=== PATIENT | male | born 1950 | race Caucasian/White ===

== ENCOUNTER 2021-05-09 10:18 | Outpatient (REF) | payer MEDICARE, SELFPAY ==
[2021-05-09 11:34] LABS: Appearance Urine CLEAR; Color Urine YELLOW; Glucose Urine UA NEG (NEG); Leukocyte Esterase Urine NEG (NEG); Nitrite Urine NEG (NEG); PH 5.5 (5.0-8.0); Specific Gravity - Urine 1.025 (1.005-1.025); Urine Blood NEG (NEG); Urine Ketones NEG (NEG); Urine Protein NEG (NEG-TRACE)
[2021-05-09 11:50] LABS: Estimated Average Glucose 117 mg/dL; Hemoglobin A1c % 5.7 %
[2021-05-09 12:01] LABS: Creatinine Urine 158.96 mg/dL; Microalbum/Creatinine Ratio Ur 18.2 ug/mg cr
[2021-05-09 12:15] LABS: Alanine Aminotransferase 12 U/L (0-40); Albumin Level 4.2 g/dL (3.5-5.0); Alkaline Phosphatase 65 U/L (39-117); Anion Gap 11 (12-20); Aspartate Amino Transferase 13 U/L (5-37); Bilirubin Total 0.5 mg/dL (0.0-1.0); Blood Urea Nitrogen 20 mg/dL (9-16); Calcium 9.4 mg/dL (8.4-10.2); Carbon Dioxide 29 mmol/L (22-29); Chloride 107 mmol/L (96-108); Cholesterol 158 mg/dL; Estimated Glomerular Filt Rate > 60; Glucose Fasting 107 mg/dL (60-99); HDL Cholesterol 37 mg/dL; LDL Cholesterol Calculated 102 mg/dl; Potassium 4.8 mmol/L (3.3-5.1); Sodium 142 mmol/L (135-145); Total Protein 6.9 g/dL (6.5-8.0); Triglycerides 98 mg/dL
[2021-05-09 12:38] LABS: Prostate Specific Antigen Scr 0.65 ng/mL (<0.05-4.0); TSH reflex Free T4 1.28 uIU/mL (0.32-4.0)
== END 2021-05-09 10:19 | disposition home or self-care (01) ==
LOC: HO.HMGCLDS 10:18
PROVIDERS: PCP Nurse Practitioner Family; Visit Provider Nurse Practitioner Family
DX: Z12.5 Encounter for screening for malignant neoplasm of prostate (principal); E11.9 Type 2 diabetes mellitus without complications
CPT/HCPCS: 36415; 80053; 80061; 81003; 82043; 83036; 84153; 84443

== ENCOUNTER 2021-08-22 09:23 | Outpatient (REF) | payer MEDICARE, SELFPAY ==
[2021-08-22 12:09] LABS: Alanine Aminotransferase 12 U/L (0-40); Albumin Level 4.2 g/dL (3.5-5.0); Alkaline Phosphatase 67 U/L (39-117); Anion Gap 15 (12-20); Aspartate Amino Transferase 13 U/L (5-37); Bilirubin Total 0.8 mg/dL (0.0-1.0); Blood Urea Nitrogen 16 mg/dL (9-16); Calcium 9.9 mg/dL (8.4-10.2); Carbon Dioxide 26 mmol/L (22-29); Chloride 104 mmol/L (96-108); Estimated Glomerular Filt Rate > 60; Glucose Random 117 mg/dL (60-115); Potassium 4.5 mmol/L (3.3-5.1); Sodium 140 mmol/L (135-145); Total Protein 7.1 g/dL (6.5-8.0)
== END 2021-08-22 09:24 | disposition home or self-care (01) ==
LOC: HO.HMGCLDS 09:23
PROVIDERS: PCP Nurse Practitioner Family; Visit Provider Nurse Practitioner Family
DX: I10 Essential (primary) hypertension (principal)
CPT/HCPCS: 36415; 80053

== ENCOUNTER 2022-01-18 10:17 | Outpatient (REF) | payer MEDICARE, SELFPAY ==
[2022-01-18 15:02] LABS: MANUAL DIFF FLAG NO
[2022-01-18 15:03] LABS: Appearance Urine Turbid; Color Urine Yellow; Glucose Urine UA Negative (Negative); Leukocyte Esterase Urine Trace (Negative); Nitrite Urine Negative (Negative); PH 5.5 (5.0-9.0); Specific Gravity - Urine 1.025 (1.005-1.025); UMIC TRIGGER UACC YES; Urine Blood Negative (Negative); Urine Ketones Negative (Negative); Urine Protein Negative (Neg-Trace)
[2022-01-18 15:08] LABS: Basophils Absolute Auto 0.1 X10*3/uL (0.0-0.2); Basophils Percent Auto 1.4 % (0-2); Eosinophils Absolute Auto 0.1 X10*3/uL (0.0-0.4); Eosinophils Percent Auto 2.4 % (0-4); Hematocrit 44.9 % (42.0-52.0); Hemoglobin 14.7 g/dl (14.0-18.0); Imm Gran Abs Auto 0.02 X10*3/uL (0.00-0.03); Imm Gran Pct Auto 0.4 % (0.0-0.4); Lymphocytes Percent Auto 19.5 % (20-40); Mean Corpuscular HGB Conc 32.7 g/dl (31.0-36.0); Mean Corpuscular Hemoglobin 28.7 pg (27.0-33.0); Mean Corpuscular Volume 87.5 fL (80.0-98.0); Mean Platelet Volume 11.8 fL (9.4-12.4); Monocytes Absolute Auto 0.5 X10*3/uL (0.1-1.2); Monocytes Percent Auto 9.8 % (2-11); Neutrophils Absolute Auto 3.3 x10*3/uL (2.0-8.3); Neutrophils Percent Auto 66.5 % (45-73); Platelet Count 187 X10*3/uL (160-400); Red Blood Count 5.13 X10*6/uL (4.60-5.80)
[2022-01-18 15:09] LABS: Bacteria Urine None Seen (None Seen); Hyaline Casts Urine 0-2 /LPF (0-2); RBC Urine 0-2 /HPF (0-2); Squamous Epithelial Cell Urine 0-2 /HPF (0-2); WBC Urine 0-5 /HPF (0-5)
[2022-01-18 15:19] LABS: Alanine Aminotransferase 15 U/L (0-40); Albumin Level 4.5 g/dL (3.5-5.0); Alkaline Phosphatase 64 U/L (39-117); Anion Gap 15 (12-20); Aspartate Amino Transferase 18 U/L (5-37); Bilirubin Total 0.4 mg/dL (0.0-1.0); Blood Urea Nitrogen 20 mg/dL (9-16); Calcium 9.4 mg/dL (8.4-10.2); Carbon Dioxide 26 mmol/L (22-29); Chloride 103 mmol/L (96-108); Cholesterol 187 mg/dL; Estimated Glomerular Filt Rate > 60; Glucose Fasting 117 mg/dL (60-99); HDL Cholesterol 45 mg/dL; LDL Cholesterol Calculated 112 mg/dl; Potassium 4.4 mmol/L (3.3-5.1); Sodium 140 mmol/L (135-145); Total Protein 7.2 g/dL (6.5-8.0); Triglycerides 151 mg/dL
[2022-01-18 15:20] LABS: Estimated Average Glucose 120 mg/dL; Hemoglobin A1C 150.8306 umol/L; Hemoglobin A1c % 5.8 %
== END 2022-01-18 10:18 | disposition home or self-care (01) ==
LOC: HO.HMGCLDS 10:17
PROVIDERS: PCP Nurse Practitioner Family; Visit Provider Nurse Practitioner Family
DX: I10 Essential (primary) hypertension (principal); E11.9 Type 2 diabetes mellitus without complications
CPT/HCPCS: 36415; 80053; 80061; 81001; 81003; 83036; 84443; 85025

== ENCOUNTER 2022-07-26 11:05 | Outpatient (REF) | payer MEDICARE, SELFPAY ==
[2022-07-26 14:07] LABS: MANUAL DIFF FLAG NO
[2022-07-26 14:14] LABS: Appearance Urine Cloudy; Color Urine Yellow; Glucose Urine UA Negative (Negative); Leukocyte Esterase Urine Negative (Negative); Nitrite Urine Negative (Negative); PH 5.5 (5.0-9.0); Specific Gravity - Urine >= 1.030 (1.005-1.025); Urine Blood Negative (Negative); Urine Ketones Negative (Negative); Urine Protein Negative (Neg-Trace)
[2022-07-26 14:18] LABS: Basophils Absolute Auto 0.1 X10*3/uL (0.0-0.2); Basophils Percent Auto 1.5 % (0-2); Eosinophils Absolute Auto 0.1 X10*3/uL (0.0-0.4); Hematocrit 43.5 % (42.0-52.0); Hemoglobin 14.4 g/dl (14.0-18.0); Imm Gran Abs Auto 0.02 X10*3/uL (0.00-0.03); Imm Gran Pct Auto 0.4 % (0.0-0.4); Lymphocytes Percent Auto 20.7 % (20-40); Mean Corpuscular HGB Conc 33.1 g/dl (31.0-36.0); Mean Corpuscular Hemoglobin 29.4 pg (27.0-33.0); Mean Corpuscular Volume 88.8 fL (80.0-98.0); Mean Platelet Volume 11.9 fL (9.4-12.4); Monocytes Absolute Auto 0.4 X10*3/uL (0.1-1.2); Monocytes Percent Auto 9.2 % (2-11); Neutrophils Absolute Auto 3.1 x10*3/uL (2.0-8.3); Neutrophils Percent Auto 65.2 % (45-73); Platelet Count 198 X10*3/uL (160-400); Red Cell Distribution Width 11.9 % (11.0-16.0); White Blood Count 4.7 X10*3/uL (4.8-10.8)
[2022-07-26 14:43] LABS: Alanine Aminotransferase 13 U/L (0-40); Albumin Level 4.3 g/dL (3.5-5.0); Alkaline Phosphatase 67 U/L (39-117); Anion Gap 12 (12-20); Aspartate Amino Transferase 13 U/L (5-37); Bilirubin Total 0.5 mg/dL (0.0-1.0); Blood Urea Nitrogen 15 mg/dL (9-16); Calcium 9.3 mg/dL (8.4-10.2); Carbon Dioxide 28 mmol/L (22-29); Chloride 107 mmol/L (96-108); Cholesterol 178 mg/dL; Estimated Glomerular Filt Rate > 60; Glucose Fasting 119 mg/dL (60-99); HDL Cholesterol 36 mg/dL; LDL Cholesterol Calculated 114 mg/dl; Potassium 4.7 mmol/L (3.3-5.1); Sodium 142 mmol/L (135-145); Total Protein 6.7 g/dL (6.5-8.0); Triglycerides 142 mg/dL
[2022-07-26 14:49] LABS: Estimated Average Glucose 123 mg/dL; Hemoglobin A1c % 5.9 %
[2022-07-26 15:00] LABS: Prostate Specific Antigen Scr 1.09 ng/mL (<0.05-4.0); TSH reflex Free T4 1.22 uIU/mL (0.32-4.0)
[2022-07-26 15:15] LABS: Creatinine Urine 229.87 mg/dL; Microalbum/Creatinine Ratio Ur 10.8 ug/mg cr
== END 2022-07-26 11:06 | disposition home or self-care (01) ==
LOC: HO.HMGCLDS 11:05
PROVIDERS: PCP Nurse Practitioner Family; Visit Provider Nurse Practitioner Family
DX: Z12.5 Encounter for screening for malignant neoplasm of prostate (principal); I10 Essential (primary) hypertension; E11.9 Type 2 diabetes mellitus without complications
CPT/HCPCS: 36415; 80053; 80061; 81003; 82043; 83036; 84153; 84443; 85025

== ENCOUNTER 2022-11-13 09:18 | Outpatient (AMB) | payer MEDICARE, SELFPAY ==
[2022-11-13 09:28] VITALS: BP 150/84; PULSE 63; O2SAT 98; BMI 34.2
--- NOTE | 2022-11-13 09:28 | A.OFFPC_ITS ---
Vital Signs 11/13/22 09:28 Height 6 ft Weight 252 lb BMI 34.2 BP 150/84 H Blood Pressure Location Lt brachial Position Sitting Pulse 63 Pulse Source Pulse Oximeter Pulse Oximetry (%) 98 Oxygen Delivery Method Room Air Intake Visit Reasons: 4m follow up DM Allergies No Known Allergies Allergy (Verified 11/13/22 09:31) Medication List - Last Reconciled 11/13/22 by SHELDON Arce blood sugar diagnostic (OneTouch Ultra Test strips) tid testing lisinopril 40 mg PO DAILY 90 days metformin 500 mg PO BID 90 days terazosin 10 mg PO BEDTIME 90 days Tobacco use date assessed: 11/13/22 Fall risk assessment: No Falls in past year Last assessed Fall Risk: 11/13/22 Dental Screening Dental Screen Date: 11/13/22 Did you have a dental visit in the last 12 months?: No Did you have a dental problem in the last 6 months where you did not have access to dental care?: No Was dental information given to patient?: No HPI 4m follow up DM HPI Details Pt is a diabetic, on an ROHIT. A1c in office today is 5.8. Microalbumin is up to date. Denies polyuria, polydipsia, and neuropathy. Pt denies any signs and symptoms of hypoglycemia and does know how to correct it. Pt reports that his blood sugar typically ranges from 90s-low 100s. Due for colon screen, will refer to GI. HTN: WCS, reports BPs are better at home. [facility] Medical History Adjustment disorder with depressed mood BPH (benign prostatic hyperplasia) Diabetes HTN (hypertension) Kidney stones Obesity White coat syndrome with hypertension Social History Housing: Apartment Patient Tobacco Use Status: Never used Tobacco e-Cigarette/Vaping Use: Never Used Second Hand Smoke Exposure: No service: Yes Current occupational status: employed Current occupation: [employer] Current occupational exposures/hazards: No Cognitive needs: No Hearing needs: No Vision needs: No Questionnaire Thrive Questionnaire Date Thrive assessed: 04/26/21 KYLE-7 AMB Questionnaire KYLE-7 Date KYLE - 7 assessed: 04/26/21 Source: Developed by Drs. Ernie Garcia, Mindi Barton, Richard Brooks and colleagues, with an educational kvng from [email or web address]. Review of Systems Const Reports as per HPI Physical exam (Primary Care) Vital Signs: Last Vital Signs Pulse 63 11/13/22 09:28 BP 150/84 H 11/13/22 09:28 Pulse Ox 98 11/13/22 09:28 Oxygen Delivery Method Room Air 11/13/22 09:28 BMI result Body Mass Index 34.2 Tobacco/Smoking Status: Tobacco use Status Tobacco use date assessed 11/13/22 11/13/22 09:34 Patient Tobacco Use Status Never used Tobacco 11/13/22 09:34 e-Cigarette/Vaping Use Never Used 11/13/22 09:34 Thrive Assessment: Date of Thrive Assessment Date Thrive assessed 04/26/21 11/13/22 09:34 Const General: cooperative Nutritional Appearance: obese Orientation/consciousness: patient oriented x3 Resp Effort & Inspection: normal respiratory effort Auscultation: clear to auscultation bilaterally Cardio Rate: regular rate Rhythm: regular rhythm Heart sounds: S1 normal heart sound present and S2 normal heart sound present Neuro General: patient oriented x3 Extrem Other: bilat feet: + sensation with use of monofilament, feet intact Psych Appearance: grossly normal Mental Status: mental status grossly normal Speech and movement: Normal speech and movement present Affect: normal affect Attitude: cooperative Thought process: Normal thought process present Thought content: Normal thought content present Insight: Good insight present (Psych) Judgement: Good judgement present (Psych) Results AMB Hemoglobin A1c AMB Hemoglobin A1c 5.8 % Last Edit by Tonie Zamudio CMA on 11/13/22 10: 00 Results Reviewed Results Reviewed: Laboratory Last Values Hgb A1c (Clinic) 5.8 % (4.0-6.0) 11/13/22 09:40 Assessment and Plan Assessment & Plan (1) Screening for colon cancer: Code(s): Z12.11 - Encounter for screening for malignant neoplasm of colon Plan: Referred to GI (2) Diabetes: Code(s): E11.9 - Type 2 diabetes mellitus without complications (3) HTN (hypertension): Code(s): I10 - Essential (primary) hypertension Plan The patient agreed to the use of a medical artist for this encounter. Scribed for RASHID YanezP-BC by Sandhya Coleman, medical artist, on 11/13/2022 at 09:35 EST. Orders: Orders AMB Hemoglobin A1c Today E11.9 - Type 2 diabetes mellitus without complications Comprehensive [place]. Panel Fast Today E11.9 - Type 2 diabetes mellitus without complications Lipid Panel Today E11.9 - Type 2 diabetes mellitus without complications TSH reflex Free T4 Today E11.9 - Type 2 diabetes mellitus without complications Complete Blood Count Auto Diff Today E11.9 - Type 2 diabetes mellitus without complications UA CC w/rflx Micro + Cult Today E11.9 - Type 2 diabetes mellitus without complications Referrals Gastroenterology Referral Z12.11 - Encounter for screening for malignant neoplasm of colon Coding Level of Care Code Est Pt Level 3 (30771) Diagnoses Screening for colon cancer Z12.11 Diabetes E11.9 HTN (hypertension) I10
== END 2022-11-13 11:04 | disposition home or self-care (01) ==
PROVIDERS: PCP Nurse Practitioner Family; Visit Provider Nurse Practitioner Family
DX: Z12.11 Encounter for screening for malignant neoplasm of colon (principal); E11.9 Type 2 diabetes mellitus without complications; I10 Essential (primary) hypertension
CPT/HCPCS: 83036; 99213

== ENCOUNTER 2022-12-26 09:27 | Outpatient (AMB) | payer MEDICARE, SELFPAY ==
--- NOTE | 2022-12-26 10:12 | AM.OFFWIN_ITS ---
Intake Vital Signs 12/26/22 10:14 Height 6 ft Weight 257 lb BMI 34.9 BP 122/72 Blood Pressure Location Rt brachial Position Sitting Pulse 144 H Pulse Source Pulse Oximeter Temp 98.3 F Temp Source Oral Pulse Oximetry (%) 97 Oxygen Delivery Method Room Air Intake Visit Reasons: EP, fever, chest congestion (masked) Intake Note: Patient here for chest tightness, headache, slight fever. Patient Tobacco Use Status: Never used Tobacco Allergies No Known Allergies Allergy (Verified 12/26/22 11:15) Medication List - Last Reconciled 12/26/22 by William Ramirez MD blood sugar diagnostic ([employer] Ultra Test strips) tid testing lisinopril 40 mg PO DAILY 90 days metformin 500 mg PO BID 90 days terazosin 10 mg PO BEDTIME 90 days Do you need a note to return to daycare/school/sports/work: Yes HPI HPI Comments History of Present Illness Details Patient presents for a sick visit. Reporting symptoms of sinus congestion, sore throat and difficulty swallowing. Low-grade fever. No family member is sick. No recent travel. Patient reports symptoms of malaise and fatigue. [facility] Medical History (Reviewed 07/26/22 @ 10:49 by Gilmar Yates [facility]) Adjustment disorder with depressed mood BPH (benign prostatic hyperplasia) Diabetes HTN (hypertension) Kidney stones Obesity White coat syndrome with hypertension Social History Housing: Apartment Patient Tobacco Use Status: Never used Tobacco e-Cigarette/Vaping Use: Never Used Second Hand Smoke Exposure: No service: Yes Current occupational status: employed Current occupation: [employer] Current occupational exposures/hazards: No Cognitive needs: No Hearing needs: No Vision needs: No Physical Exam Vital Signs: Last Vital Signs Temp 98.3 F 12/26/22 10:14 Pulse 144 H 12/26/22 10:14 BP 122/72 12/26/22 10:14 Pulse Ox 97 12/26/22 10:14 Oxygen Delivery Method Room Air 12/26/22 10:14 BMI result Body Mass Index 34.9 Const General: cooperative and healthy appearing Nutritional Appearance: well nourished Orientation/consciousness: patient oriented x3 Limitations: no limitations HEENT Head: Yes normal to inspection Eyes General: appearance normal, both eyes and all related structures Neck Neck: Yes normal visual inspection Chest Chest palpation & inspection: normal palpation of entire chest wall Resp Effort & Inspection: normal respiratory effort Neuro General: patient oriented x3 Assessment & Plan Assessment & Plan (1) Upper respiratory tract infection: Code(s): J06.9 - Acute upper respiratory infection, unspecified Qualifiers: URI type: unspecified viral URI Qualified Code(s): J06.9 - Acute upper respiratory infection, unspecified Plan Increase fluid intake. Tylenol for aches and pains. If symptoms worsen, follow-up here for a recheck. Will call with COVID results. Orders: Orders SARS-CoV2/FLU/RSV Today R43.9 - Unspecified disturbances of smell and taste Coding Level of Care Code Est Pt Level 3 (13174) Diagnoses Viral upper respiratory tract infection J06.9 URI type: unspecified viral URI
[2022-12-26 10:14] VITALS: BP 122/72; PULSE 144; TEMP 36.8; O2SAT 97; BMI 34.9
== END 2022-12-26 12:29 | disposition home or self-care (01) ==
PROVIDERS: PCP Nurse Practitioner Family; Visit Provider Internal Medicine
DX: J06.9 Acute upper respiratory infection, unspecified (principal)
CPT/HCPCS: 99213

== ENCOUNTER 2022-12-26 11:44 | Outpatient (REF) | payer MEDICARE, SELFPAY ==
[2022-12-26 16:08] LABS: Influenza A PCR NEGATIVE (Negative); Influenza B PCR NEGATIVE (Negative); Resp Syncy Virus RNA Qual PCR NEGATIVE (Negative); SARS COV2 PCR INHOUSE POSITIVE (Negative)
== END 2022-12-26 11:45 | disposition home or self-care (01) ==
LOC: HO.LAB 11:44
PROVIDERS: Visit Provider Internal Medicine
DX: Z20.822 Contact with and (suspected) exposure to COVID-19 (principal); R43.9 Unspecified disturbances of smell and taste
CPT/HCPCS: 0241U

== ENCOUNTER 2023-01-02 09:08 | Outpatient (AMB) | payer MEDICARE, SELFPAY ==
--- NOTE | 2023-01-02 09:21 | MHC.OFFWIV ---
Intake Vital Signs 01/02/23 09:29 Height 6 ft Weight 255 lb BMI 34.6 BP 140/80 H Blood Pressure Location Rt brachial Position Sitting Pulse 90 Pulse Source Pulse Oximeter Temp 96.8 F Temp Source Temporal Artery Scan Pulse Oximetry (%) 99 Oxygen Delivery Method Room Air Intake Visit Reasons: Work clearance post covid Intake Note: Pt tested positive for COVID on Saturday and is requesting a clearance to go back to work. Patient Tobacco Use Status: Never used Tobacco Allergies No Known Allergies Allergy (Verified 12/26/22 11:15) HPI HPI Comments History of Present Illness Details The patient presents to urgent care for evaluation repeat COVID PCR testing. He was symptomatic last week and tested positive last week and is unable to return to work without a negative COVID PCR. He states that he took at home antigen testing and was negative this week. Patient is asymptomatic [facility] Medical History Adjustment disorder with depressed mood BPH (benign prostatic hyperplasia) Diabetes HTN (hypertension) Kidney stones Obesity White coat syndrome with hypertension Social History Housing: Apartment Patient Tobacco Use Status: Never used Tobacco e-Cigarette/Vaping Use: Never Used Second Hand Smoke Exposure: No service: Yes Current occupational status: employed Current occupation: [employer] Current occupational exposures/hazards: No Cognitive needs: No Hearing needs: No Vision needs: No Physical Exam Vital Signs: Last Vital Signs Temp 96.8 F 01/02/23 09:29 Pulse 90 01/02/23 09:29 BP 140/80 H 01/02/23 09:29 Pulse Ox 99 01/02/23 09:29 Oxygen Delivery Method Room Air 01/02/23 09:29 BMI result Body Mass Index 34.6 Const General: healthy appearing and no acute distress Orientation/consciousness: patient oriented x3 Eyes Corneas: corneas normal Pupils: Equal, round and reactive pupils present Chest Chest palpation & inspection: no tenderness Resp Effort & Inspection: normal respiratory effort and able to speak in complete sentences GI Palpation (GI): nontender Neuro General: patient oriented x3 Cranial nerves: Yes Equal, round and reactive pupils present Psych Appearance: grossly normal Attitude: cooperative Assessment & Plan Assessment & Plan (1) Post-COVID syndrome resolved: Code(s): Z86.16 - Personal history of COVID-19 Plan Post COVID re-evaluation and testing. Patient asymptomatic Orders: Orders SARS-CoV2/FLU/RSV Today R09.89 - Other specified symptoms and signs involving the circulatory and respiratory systems Coding Level of Care Code Est Pt Level 3 (58910) Diagnoses Post-COVID syndrome resolved Z86.16
[2023-01-02 09:29] VITALS: BP 140/80; PULSE 90; TEMP 36; O2SAT 99; BMI 34.6
== END 2023-01-02 10:31 | disposition home or self-care (01) ==
PROVIDERS: PCP Nurse Practitioner Family; Visit Provider Emergency Medicine
DX: Z86.16 Personal history of COVID-19 (principal)
CPT/HCPCS: 99213

== ENCOUNTER 2023-01-02 09:36 | Outpatient (REF) | payer MEDICARE, SELFPAY ==
[2023-01-02 12:23] LABS: Influenza A PCR NEGATIVE (Negative); Influenza B PCR NEGATIVE (Negative); Resp Syncy Virus RNA Qual PCR NEGATIVE (Negative); SARS COV2 PCR INHOUSE POSITIVE (Negative)
== END 2023-01-02 09:37 | disposition home or self-care (01) ==
LOC: HO.LAB 09:36
PROVIDERS: Visit Provider Emergency Medicine
DX: R09.89 Other specified symptoms and signs involving the circulatory and respiratory systems (principal); Z20.822 Contact with and (suspected) exposure to COVID-19
CPT/HCPCS: 0241U

== ENCOUNTER → 2023-02-19 09:35 | Outpatient (BNVA) | payer MEDICARE, SELFPAY | PROVIDERS: PCP Nurse Practitioner Family; Visit Provider Physician Assistant ==

== ENCOUNTER 2023-03-26 09:09 | Outpatient (AMB) | payer MEDICARE, SELFPAY ==
--- NOTE | 2023-03-26 09:13 | A.OFFPC_ITS ---
Vital Signs 03/26/23 09:16 03/26/23 10:08 Height 6 ft Weight 262 lb BMI 35.5 BP 160/120 H 140/90 H Blood Pressure Location Lt brachial Position Sitting Pulse 82 Pulse Source Pulse Oximeter Pulse Oximetry (%) 98 Oxygen Delivery Method Room Air Intake Visit Reasons: 4 month fu Intake Note: Patient here for diabetes follow up. Allergies No Known Allergies Allergy (Verified 03/26/23 09:17) Tobacco use date assessed: 11/13/22 Fall risk assessment: No Falls in past year Last assessed Fall Risk: 03/26/23 Dental Screening Dental Screen Date: 03/26/23 Did you have a dental visit in the last 12 months?: Yes Did you have a dental problem in the last 6 months where you did not have access to dental care?: No Was dental information given to patient?: Patient has dentist HPI 4 month fu HPI Details Pt c/o brain fog and slight headache, reporting his head feels off. Denies fever, chills, shortness of breath, and sore throat. Pt tested himself for COVID and was negative. HTN: Blood pressure is managed with lisinopril 40mg. BP is elevated today. Pt reports that his blood pressure this morning was 186/92. Pt believes he is currently passing a kidney stone as well. Denies fever, chills, hematuria, and flank pain. Pt knows to go to the ER with any worsening symptoms. [facility] Medical History (Updated 03/26/23 @ 11:21 by SHIRA Arce-SAUMYA) White coat syndrome with hypertension Obesity Adjustment disorder with depressed mood HTN (hypertension) Diabetes BPH (benign prostatic hyperplasia) Kidney stones Surgical History Hx of right knee surgery History of surgery of head Social History Housing: Apartment Housing Other:: - 3 children Alcohol intake: never Patient Tobacco Use Status: Never used Tobacco e-Cigarette/Vaping Use: Never Used Second Hand Smoke Exposure: No service: Yes Current occupational status: employed Current occupation: [employer] Current occupational exposures/hazards: No Cognitive needs: No Hearing needs: No Vision needs: No Questionnaire Thrive Questionnaire Date Thrive assessed: 04/26/21 KYLE-7 AMB Questionnaire KYLE-7 Date KYLE - 7 assessed: 04/26/21 Source: Developed by Drs. Ernie Garcia, Mindi Barton, Richard Brooks and colleagues, with an educational kvng from [employer]. Review of Systems Const Reports as per HPI Physical exam (Primary Care) Vital Signs: Last Vital Signs Pulse 82 03/26/23 09:16 BP 160/120 H 03/26/23 09:16 Pulse Ox 98 03/26/23 09:16 Oxygen Delivery Method Room Air 03/26/23 09:16 BMI result Body Mass Index 35.5 Tobacco/Smoking Status: Tobacco use Status Tobacco use date assessed 11/13/22 03/26/23 09:14 Patient Tobacco Use Status Never used Tobacco 03/26/23 09:14 e-Cigarette/Vaping Use Never Used 03/26/23 09:14 Thrive Assessment: Date of Thrive Assessment Date Thrive assessed 04/26/21 03/26/23 09:14 Const General: cooperative Nutritional Appearance: obese Orientation/consciousness: patient oriented x3 HENMT Other: no sinus pressure with palpation Ears: TM's normal bilaterally Throat: Yes posterior oropharynx normal and Yes tonsils normal Resp Effort & Inspection: normal respiratory effort Auscultation: clear to auscultation bilaterally Cardio Rate: regular rate Rhythm: regular rhythm Heart sounds: S1 normal heart sound present and S2 normal heart sound present Neuro General: patient oriented x3 Psych Appearance: grossly normal Mental Status: mental status grossly normal Speech and movement: Normal speech and movement present Affect: normal affect Attitude: cooperative Thought process: Normal thought process present Thought content: Normal thought content present Insight: Good insight present (Psych) Judgement: Good judgement present (Psych) Assessment and Plan Assessment & Plan (1) HTN (hypertension): Code(s): I10 - Essential (primary) hypertension (2) Kidney stones: Code(s): N20.0 - Calculus of kidney Plan The patient agreed to the use of a medical transcription radiology for this encounter. Scribed for SHELDON Yanez by Sandhya Coleman medical transcription radiology, on 03/26/2023 at 09:25 EST. Orders: Orders Complete Blood Count Auto Diff Today I10 - Essential (primary) hypertension Comprehensive Met. Panel Today I10 - Essential (primary) hypertension TSH reflex Free T4 Today I10 - Essential (primary) hypertension UA CC w/rflx Micro + Cult Today I10 - Essential (primary) hypertension Coding Level of Care Code Est Pt Level 3 (37411) Diagnoses HTN (hypertension) I10 Kidney stones N20.0
[2023-03-26 09:16] VITALS: BP 160/120; PULSE 82; O2SAT 98; BMI 35.5
[2023-03-26 10:08] VITALS: BP 140/90
== END 2023-03-26 10:18 | disposition home or self-care (01) ==
PROVIDERS: PCP Nurse Practitioner Family; Visit Provider Nurse Practitioner Family
DX: I10 Essential (primary) hypertension (principal); N20.0 Calculus of kidney
CPT/HCPCS: 99213

== ENCOUNTER 2023-03-26 10:19 | Outpatient (REF) | payer MEDICARE, SELFPAY ==
[2023-03-26 13:19] LABS: MANUAL DIFF FLAG NO
[2023-03-26 13:34] LABS: Appearance Urine Clear; Color Urine Yellow; Glucose Urine UA Negative (Negative); Leukocyte Esterase Urine Negative (Negative); Nitrite Urine Negative (Negative); PH 5.5 (5.0-9.0); UMIC TRIGGER UACC YES; Urine Blood Trace (Negative); Urine Ketones Negative (Negative); Urine Protein Negative (Neg-Trace)
[2023-03-26 13:37] LABS: Basophils Absolute Auto 0.1 X10*3/uL (0.0-0.2); Basophils Percent Auto 1.4 % (0-2); Eosinophils Absolute Auto 0.2 X10*3/uL (0.0-0.4); Eosinophils Percent Auto 3.3 % (0-4); Hematocrit 42.4 % (42.0-52.0); Hemoglobin 13.9 g/dl (14.0-18.0); Imm Gran Abs Auto 0.07 X10*3/uL (0.00-0.03); Imm Gran Pct Auto 1.3 % (0.0-0.4); Lymphocytes Percent Auto 17.6 % (20-40); Mean Corpuscular HGB Conc 32.8 g/dl (31.0-36.0); Mean Corpuscular Hemoglobin 29.3 pg (27.0-33.0); Mean Corpuscular Volume 89.5 fL (80.0-98.0); Mean Platelet Volume 11.4 fL (9.4-12.4); Monocytes Absolute Auto 0.5 X10*3/uL (0.1-1.2); Monocytes Percent Auto 9.8 % (2-11); Neutrophils Absolute Auto 3.7 x10*3/uL (2.0-8.3); Neutrophils Percent Auto 66.6 % (45-73); Platelet Count 206 X10*3/uL (160-400); Red Blood Count 4.74 X10*6/uL (4.60-5.80); Red Cell Distribution Width 12.5 % (11.0-16.0); White Blood Count 5.5 X10*3/uL (4.8-10.8)
[2023-03-26 13:39] LABS: Bacteria Urine None Seen (None Seen); Hyaline Casts Urine 0-2 /LPF (0-2); RBC Urine 0-2 /HPF (0-2); Squamous Epithelial Cell Urine 0-2 /HPF (0-2); WBC Urine 0-5 /HPF (0-5)
[2023-03-26 18:08] LABS: Alanine Aminotransferase 17 U/L (0-40); Albumin Level 4.2 g/dL (3.5-5.0); Alkaline Phosphatase 63 U/L (39-117); Anion Gap 13 (12-20); Aspartate Amino Transferase 19 U/L (5-37); Bilirubin Total 0.4 mg/dL (0.0-1.0); Blood Urea Nitrogen 11 mg/dL (9-16); Calcium 9.3 mg/dL (8.4-10.2); Carbon Dioxide 27 mmol/L (22-29); Chloride 107 mmol/L (96-108); Cholesterol 192 mg/dL (<200); Estimated Glomerular Filt Rate > 60; Glucose Fasting 134 mg/dL (60-99); Glucose Random 135 mg/dL (60-115); HDL Cholesterol 42 mg/dL (>40); LDL Cholesterol Calculated 115 mg/dL (<100); Potassium 4.4 mmol/L (3.3-5.1); Sodium 143 mmol/L (135-145); Total Protein 7.1 g/dL (6.5-8.0); Triglycerides 179 mg/dL (<150)
[2023-03-26 18:28] LABS: TSH reflex Free T4 1.65 uIU/mL (0.32-4.0)
== END 2023-03-26 10:20 | disposition home or self-care (01) ==
LOC: HO.HMGCLDS 10:19
PROVIDERS: PCP Nurse Practitioner Family; Visit Provider Nurse Practitioner Family
DX: E11.9 Type 2 diabetes mellitus without complications (principal); I10 Essential (primary) hypertension
CPT/HCPCS: 36415; 80053; 80061; 81001; 84443; 85025

== ENCOUNTER 2023-07-02 09:16 | Outpatient (AMB) | payer MEDICARE, SELFPAY ==
[2023-07-02 09:20] VITALS: BP 144/86; PULSE 86; O2SAT 98; BMI 35.0
--- NOTE | 2023-07-02 09:20 | A.OFFPC_ITS ---
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 Accompanied by: Self / Same As Patient Allergies No Known Allergies Allergy (Verified 07/02/23 09:21) Medication List - Last Reconciled 07/02/23 [facility] amlodipine 2.5 mg PO DAILY bisacodyl (Dulcolax (bisacodyl)) 20 mg (4 x 5 mg) PO ONCE 1 day blood sugar diagnostic (Restorandouch Ultra Test strips) tid testing lisinopril 40 mg PO DAILY 90 days metformin 500 mg PO BID 90 days polyethylene glycol 3350 (Miralax) 238 grams PO ONCE PRN 1 day terazosin 10 mg PO BEDTIME 90 days Tobacco use date assessed: 07/02/23 Fall risk assessment: No Falls in past year Last assessed Fall Risk: 07/02/23 Dental Screening Dental Screen Date: 07/02/23 Did you have a dental visit in the last 12 months?: Yes Did you have a dental problem in the last 6 months where you did not have access to dental care?: No Was dental information given to patient?: Patient has dentist HPI 3 month fu HPI Details Pt is a diabetic, on an ROHIT. A1C in office today is 6.2. Due for microalbumin in the near future. Denies polyuria, polydipsia, and neuropathy. Pt denies any signs and symptoms of hypoglycemia and does know how to correct it. HTN: Blood pressure is elevated today, though pt has a hx of white-coat syndrome. Pt reports that his BP at his has been elevated as well. Will add amlodipine 2.5mg. Denies chest pain, headache, dizziness, and blurred vision. Pt reports some shortness of breath with exertion. Will do an EKG in office. Will order echo, stress test, and PFT testing. Due for PSA, will order. Denies dribbling with urination, weak stream, and frequent nocturia. Informed pt that he can obtain his pneumonia vaccine at his pharmacy. [facility] Medical History White coat syndrome with hypertension Obesity Adjustment disorder with depressed mood HTN (hypertension) Diabetes BPH (benign prostatic hyperplasia) Kidney stones Surgical History Hx of right knee surgery History of surgery of head Social History Housing: Apartment Housing Other:: - 3 children Alcohol intake: never Patient Tobacco Use Status: Never used Tobacco e-Cigarette/Vaping Use: Never Used Second Hand Smoke Exposure: No service: Yes Current occupational status: employed Current occupation: [employer] Current occupational exposures/hazards: No Cognitive needs: No Hearing needs: No Vision needs: No Questionnaire PHQ-9 Over the last 2 weeks, how often have you been bothered by any of the following problems? 1. Little interest or pleasure in doing things: not at all 2. Feeling down, depressed, or hopeless: not at all 3. Trouble falling or staying asleep, or sleeping too much: not at all 4. Feeling tired or having little energy: not at all 5. Poor appetite or overeating: not at all 6. Feeling bad about yourself - or that you are a failure or have let yourself or your family down: not at all 7. Trouble concentrating on things, such as reading the newspaper or watching television: not at all 8. Moving or speaking so slowly that other people could have noticed. Or the opposite - being so fidgety or restless that you have been moving around a lot more than usual: not at all 9. Thoughts that you would be better off or of hurting yourself in some way: not at all Total score: 0 Depression Screening Interpretation: Negative Depression Screening Done: Yes 04421 - PHQ-9 Billing: Yes Source: Developed by Drs. Ernie Garcia, Mindi Barton, Richard Brooks and colleagues, with an educational kvng from [email or web address]. Thrive Questionnaire Date Thrive assessed: 07/02/23 I am a: Patient What is your living situation today?: I have a steady place to live Within the past 12 months, did the food you bought not last and you didn't have the money to get more?: Never true Within the past 12 months, did you worry whether your food would run out before you got money to buy more?: Never true Do you have trouble paying for medicines?: No Do you have trouble getting transportation to medical appointments?: No Do you have trouble paying your heating and electricity bill?: No Do you have trouble taking care of your child, family member or friend?: No Do you have trouble with day-to-day activities such as bathing, preparing meals, shopping, managing finances, etc.?: No Are you currently unemployed and looking for a job?: No Are you interested in more education?: No Please select the resources that you would like help with: None Currently or been in a relationship where the following occur: no concerns reported THRIVE Score: 0 AUDIT C Alcohol Use Questionnaire (AUDIT-C) 1. How often do you have a drink containing alcohol?: Never 3. How often do you have six or more drinks on one occasion?: Never Total Score: 0 Score Reviewed/Action Taken: Yes KYLE-7 AMB Questionnaire KYLE-7 Date KYLE - 7 assessed: 07/02/23 Feeling nervous, anxious, or on edge: 0 = Not at all Not being able to stop or control worryin = Not at all Worrying too much about different things: 0 = Not at all Trouble relaxin = Not at all Being so restless that it is hard to sit still: 0 = Not at all Becoming easily annoyed or irritable: 0 = Not at all Feeling afraid as if something awful might happen: 0 = Not at all Total KYLE-7 score (0-4 normal; 5-9 mild; 10-14 moderate; 15-21 severe): 0 Source: Developed by Drs. Ernie Garcia, Mindi Barton, Richard Brooks and colleagues, with an educational kvng from [email or web address]. KYLE-7 Assessment Billing KYLE-7 Assessment Tool: KYLE-7 Assessment 60891 Review of Systems Const Reports as per HPI Physical exam (Primary Care) Vital Signs: Last Vital Signs Pulse 86 07/02/23 09:20 BP 144/86 H 07/02/23 09:20 Pulse Ox 98 07/02/23 09:20 Oxygen Delivery Method Room Air 07/02/23 09:20 BMI result Body Mass Index 35.0 Tobacco/Smoking Status: Tobacco use Status Tobacco use date assessed 07/02/23 07/02/23 09:24 Patient Tobacco Use Status Never used Tobacco 07/02/23 09:24 e-Cigarette/Vaping Use Never Used 07/02/23 09:24 PHQ-9: PHQ-9 Score PHQ-9: Total score 0 07/02/23 09:33 Depression Screening Interpretation: Negative Thrive Assessment: Date of Thrive Assessment Date Thrive assessed 07/02/23 07/02/23 09:24 Currently or been in a relationship where the following occur: no concerns reported Const General: cooperative Nutritional Appearance: obese Orientation/consciousness: patient oriented x3 Resp Effort & Inspection: normal respiratory effort Auscultation: clear to auscultation bilaterally Cardio Rate: regular rate Rhythm: regular rhythm Heart sounds: S1 normal heart sound present and S2 normal heart sound present Neuro General: patient oriented x3 Extrem Other: bilat feet: + sensation with use of monofilament, feet intact, left dorsal foot just inferior to toes 2 and 3 with small circular erythematous patch, slightly dry appearing Psych Appearance: grossly normal Mental Status: mental status grossly normal Speech and movement: Normal speech and movement present Affect: normal affect Attitude: cooperative Thought process: Normal thought process present Thought content: Normal thought content present Insight: Good insight present (Psych) Judgement: Good judgement present (Psych) Results AMB Hemoglobin A1c AMB Hemoglobin A1c 6.2 % Last Edit by Fili Chu CMA on 07/02/23 09: 52 Assessment and Plan Assessment & Plan (1) Diabetes: Code(s): E11.9 - Type 2 diabetes mellitus without complications Plan: Labs ordered (2) Screening PSA (prostate specific antigen): Code(s): Z12.5 - Encounter for screening for malignant neoplasm of prostate Plan: PSA ordered (3) Dyspnea on exertion: Code(s): R06.09 - Other forms of dyspnea Plan: Echo, stress test, and PFT testing ordered, EKG done in office (4) HTN (hypertension): Code(s): I10 - Essential (primary) hypertension Plan: Starting amlodipine Plan The patient agreed to the use of a certified medical assistant for this encounter. Scribed for SHELDON Yanez by emerson Hsu scribe, on 07/02/2023 at 09:35 EST. Orders: Orders TSH reflex Free T4 Today E11.9 - Type 2 diabetes mellitus without complications UA CC w/rflx Micro + Cult Today E11.9 - Type 2 diabetes mellitus without complications CA echo transthoracic complete Today R06.09 - Other forms of dyspnea AMB EKG-In Office Today R06.09 - Other forms of dyspnea Microalbumin, Random (w Creat) Today E11.9 - Type 2 diabetes mellitus without complications AMB Hemoglobin A1c Today Z13.9 - Encounter for screening, unspecified Complete Blood Count Auto Diff Today E11.9 - Type 2 diabetes mellitus without complications Comprehensive [place]. Panel Fast Today E11.9 - Type 2 diabetes mellitus without complications Lipid Panel Today E11.9 - Type 2 diabetes mellitus without complications Prostate Specific Antigen Scr Today Z12.5 - Encounter for screening for malignant neoplasm of prostate CA stress test Today R06.09 - Other forms of dyspnea PFT pulmonary function test Today R06.09 - Other forms of dyspnea Medications: New amlodipine 2.5 mg PO DAILY 90 tabs 0RF Coding Level of Care Code Est Pt Level 3 (61028) Diagnoses Diabetes E11.9 Screening PSA (prostate specific antigen) Z12.5 Dyspnea on exertion R06.09 HTN (hypertension) I10 Additional Codes KYLE-7 Assessment Billing - KYLE-7 Assessment Tool: KYLE-7 Assessment 59477 ([id number])
== END 2023-07-02 10:01 | disposition home or self-care (01) ==
PROVIDERS: PCP Nurse Practitioner Family; Visit Provider Nurse Practitioner Family
DX: E11.9 Type 2 diabetes mellitus without complications (principal); Z12.5 Encounter for screening for malignant neoplasm of prostate; R06.09 Other forms of dyspnea; I10 Essential (primary) hypertension; Z13.9 Encounter for screening, unspecified
CPT/HCPCS: 83036; 99213

== ENCOUNTER 2023-07-15 11:10 | Outpatient (AMB) | payer MEDICARE, SELFPAY ==
--- NOTE | 2023-07-15 11:27 | AM.OFFWIN_ITS ---
Intake Vital Signs 07/15/23 11:28 Height 6 ft Weight 257 lb 6 oz BMI 34.9 BP 128/76 Blood Pressure Location Rt brachial Position Sitting Pulse 112 H Pulse Source Pulse Oximeter Pulse Oximetry (%) 96 Oxygen Delivery Method Room Air Intake Visit Reasons: EP Work Clearance/Ok per Dr. Guevara Intake Note: pt is here today for work clearance since his last hospital visit last week from 07/09-07/11 for diagnosis of AFIB. 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 Pt states he works for [employer]. Patient Tobacco Use Status: Never used Tobacco Allergies No Known Allergies Allergy (Verified 07/15/23 12:14) Medication List - Last Reconciled 07/15/23 by William Ramirez MD amiodarone 400 mg PO DAILY amiodarone 200 mg PO DAILY amlodipine 2.5 mg PO DAILY bisacodyl (Dulcolax (bisacodyl)) 20 mg (4 x 5 mg) PO ONCE 1 day blood sugar diagnostic (Drone.iouch Ultra Test strips) tid testing hydralazine mg PO lisinopril 40 mg PO DAILY 90 days metformin 500 mg PO BID 90 days polyethylene glycol 3350 (Miralax) 238 grams PO ONCE PRN 1 day terazosin 10 mg PO BEDTIME 90 days HPI EP Work Clearance/Ok per Dr. Guevara HPI Details 73-year-old male presents to the office for a sick visit. Patient was recently in the hospital for atrial fibrillation. He was started on amiodarone and on oral anticoagulants. Patient needs a note to return back to work. He is fully functional, feels much better and reports he is able to do all his activities of daily living. [facility] Medical History (Updated 07/15/23 @ 12:17 by William Ramirez MD) Atrial fibrillation White coat syndrome with hypertension Obesity Adjustment disorder with depressed mood HTN (hypertension) Diabetes BPH (benign prostatic hyperplasia) Kidney stones Surgical History Hx of right knee surgery History of surgery of head Social History Housing: Apartment Housing Other:: - 3 children Alcohol intake: never Patient Tobacco Use Status: Never used Tobacco e-Cigarette/Vaping Use: Never Used Second Hand Smoke Exposure: No service: Yes Current occupational status: employed Current occupation: [employer] Current occupational exposures/hazards: No Cognitive needs: No Hearing needs: No Vision needs: No Physical Exam Vital Signs: Last Vital Signs Pulse 112 H 07/15/23 11:28 BP 128/76 07/15/23 11:28 Pulse Ox 96 07/15/23 11:28 Oxygen Delivery Method Room Air 07/15/23 11:28 BMI result Body Mass Index 34.9 Const General: cooperative and healthy appearing Nutritional Appearance: well nourished Orientation/consciousness: patient oriented x3 Limitations: no limitations HEENT Head: Yes normal to inspection Eyes General: appearance normal, both eyes and all related structures Neck Neck: Yes normal visual inspection Chest Chest palpation & inspection: normal palpation of entire chest wall Resp Effort & Inspection: normal respiratory effort Cardio Other: S1, S2 irregular. Neuro General: patient oriented x3 Assessment & Plan Assessment & Plan (1) Atrial fibrillation: Code(s): I48.91 - Unspecified atrial fibrillation Plan: Patient continues to be in atrial fibrillation. Lungs are clear. Note to return back to work has been given. Coding Level of Care Code Est Pt Level 3 (28466) Diagnoses Atrial fibrillation I48.91
[2023-07-15 11:28] VITALS: BP 128/76; PULSE 112; O2SAT 96; BMI 34.9
== END 2023-07-15 12:13 | disposition home or self-care (01) ==
PROVIDERS: PCP Nurse Practitioner Family; Visit Provider Internal Medicine
DX: I48.91 Unspecified atrial fibrillation (principal)
CPT/HCPCS: 99213

== ENCOUNTER 2023-09-12 08:35 | Outpatient (REF) | payer MEDICARE, SELFPAY ==
[2023-09-12 10:22] LABS: MANUAL DIFF FLAG NO
[2023-09-12 10:43] LABS: Basophils Absolute Auto 0.1 X10*3/uL (0.0-0.2); Basophils Percent Auto 1.8 % (0-2); Eosinophils Absolute Auto 0.2 X10*3/uL (0.0-0.4); Eosinophils Percent Auto 3.6 % (0-4); Hematocrit 40.8 % (42.0-52.0); Hemoglobin 13.3 g/dl (14.0-18.0); Imm Gran Abs Auto 0.06 X10*3/uL (0.00-0.03); Lymphocytes Absolute Auto 1.2 X10*3/uL (1.2-4.9); Lymphocytes Percent Auto 20.1 % (20-40); Mean Corpuscular HGB Conc 32.6 g/dl (31.0-36.0); Mean Corpuscular Hemoglobin 30.1 pg (27.0-33.0); Mean Corpuscular Volume 92.3 fL (80.0-98.0); Mean Platelet Volume 12.2 fL (9.4-12.4); Monocytes Absolute Auto 0.6 X10*3/uL (0.1-1.2); Monocytes Percent Auto 9.1 % (2-11); Neutrophils Percent Auto 64.4 % (45-73); Platelet Count 214 X10*3/uL (160-400); Red Blood Count 4.42 X10*6/uL (4.60-5.80); Red Cell Distribution Width 12.8 % (11.0-16.0); White Blood Count 6.1 X10*3/uL (4.8-10.8)
[2023-09-12 10:49] LABS: Appearance Urine Clear; Color Urine Yellow; Glucose Urine UA Negative (Negative); Leukocyte Esterase Urine Negative (Negative); Nitrite Urine Negative (Negative); PH 5.5 (5.0-9.0); Urine Blood Negative (Negative); Urine Ketones Negative (Negative); Urine Protein Negative (Neg-Trace)
[2023-09-12 11:03] LABS: Prostate Specific Antigen Scr 0.93 ng/mL (<0.05-4.0)
[2023-09-12 11:13] LABS: Alanine Aminotransferase 17 U/L (0-40); Albumin Level 4.3 g/dL (3.5-5.0); Alkaline Phosphatase 67 U/L (39-117); Anion Gap 13 (12-20); Aspartate Amino Transferase 16 U/L (5-37); Bilirubin Total 0.4 mg/dL (0.0-1.0); Blood Urea Nitrogen 22 mg/dL (9-16); Calcium 9.3 mg/dL (8.4-10.2); Carbon Dioxide 26 mmol/L (22-29); Chloride 110 mmol/L (96-108); Cholesterol 183 mg/dL (<200); Estimated Glomerular Filt Rate > 60; Glucose Fasting 128 mg/dL (60-99); HDL Cholesterol 36 mg/dL (>40); LDL Cholesterol Calculated 113 mg/dL (<100); Potassium 4.5 mmol/L (3.3-5.1); Sodium 144 mmol/L (135-145); TSH reflex Free T4 3.32 uIU/mL (0.32-4.0); Triglycerides 173 mg/dL (<150)
[2023-09-12 11:16] LABS: Creatinine Urine 134.52 mg/dL; Microalbum/Creatinine Ratio Ur 8.9 ug/mg cr (<30)
== END 2023-09-12 08:36 | disposition home or self-care (01) ==
LOC: HO.HMGCLDS 08:35
PROVIDERS: PCP Nurse Practitioner Family; Visit Provider Nurse Practitioner Family
DX: I10 Essential (primary) hypertension (principal); E11.9 Type 2 diabetes mellitus without complications; Z12.5 Encounter for screening for malignant neoplasm of prostate
CPT/HCPCS: 36415; 80053; 80061; 81003; 82043; 82570; 84153; 84443; 85025

== ENCOUNTER 2023-09-19 09:44 | Outpatient (REF) | payer MEDICARE, SELFPAY ==
[2023-09-19 13:04] LABS: MANUAL DIFF FLAG NO
[2023-09-19 13:26] LABS: Alanine Aminotransferase 16 U/L (0-40); Albumin Level 4.2 g/dL (3.5-5.0); Alkaline Phosphatase 62 U/L (39-117); Anion Gap 11 (12-20); Aspartate Amino Transferase 15 U/L (5-37); Bilirubin Total 0.3 mg/dL (0.0-1.0); Blood Urea Nitrogen 25 mg/dL (9-16); Calcium 9.2 mg/dL (8.4-10.2); Carbon Dioxide 27 mmol/L (22-29); Chloride 108 mmol/L (96-108); Estimated Glomerular Filt Rate > 60; Glucose Random 120 mg/dL (60-115); Iron 75 mcg/dL (45-160); Percent Iron Saturation 28 % (15-50); Potassium 4.1 mmol/L (3.3-5.1); Sodium 142 mmol/L (135-145); Total Iron Binding Capacity 264 mcg/dL (228-428); Total Protein 6.9 g/dL (6.5-8.0); Unsaturated Iron Binding 189 ug/dL
[2023-09-19 13:28] LABS: Basophils Absolute Auto 0.1 X10*3/uL (0.0-0.2); Basophils Percent Auto 1.7 % (0-2); Eosinophils Absolute Auto 0.2 X10*3/uL (0.0-0.4); Eosinophils Percent Auto 3.1 % (0-4); Hematocrit 40.2 % (42.0-52.0); Hemoglobin 12.9 g/dl (14.0-18.0); Imm Gran Abs Auto 0.04 X10*3/uL (0.00-0.03); Imm Gran Pct Auto 0.7 % (0.0-0.4); Lymphocytes Absolute Auto 1.1 X10*3/uL (1.2-4.9); Lymphocytes Percent Auto 19.4 % (20-40); Mean Corpuscular HGB Conc 32.1 g/dl (31.0-36.0); Mean Corpuscular Hemoglobin 29.7 pg (27.0-33.0); Mean Corpuscular Volume 92.4 fL (80.0-98.0); Mean Platelet Volume 12.1 fL (9.4-12.4); Monocytes Absolute Auto 0.5 X10*3/uL (0.1-1.2); Monocytes Percent Auto 9.5 % (2-11); Neutrophils Absolute Auto 3.6 x10*3/uL (2.0-8.3); Neutrophils Percent Auto 65.6 % (45-73); Platelet Count 209 X10*3/uL (160-400); Red Blood Count 4.35 X10*6/uL (4.60-5.80); Red Cell Distribution Width 13.2 % (11.0-16.0); White Blood Count 5.5 X10*3/uL (4.8-10.8)
[2023-09-19 13:40] LABS: Estimated Average Glucose 120 mg/dL; Hemoglobin A1C 136.9767 umol/L; Hemoglobin A1c % 5.8 % (<6.0)
[2023-09-19 13:41] LABS: Ferritin 122 ng/mL (20-250)
[2023-09-19 13:45] LABS: Appearance Urine Clear; Color Urine Yellow; Glucose Urine UA Negative (Negative); Leukocyte Esterase Urine Small (1+) (Negative); Nitrite Urine Negative (Negative); PH 5.5 (5.0-9.0); UMIC TRIGGER UACC YES; Urine Blood Negative (Negative); Urine Ketones Negative (Negative); Urine Protein Negative (Neg-Trace)
[2023-09-19 13:51] LABS: Bacteria Urine None Seen (None Seen); Hyaline Casts Urine 0-2 /LPF (0-2); RBC Urine 0-2 /HPF (0-2); Squamous Epithelial Cell Urine 0-2 /HPF (0-2); UACC Culture Trigger YES
[2023-09-19 13:53] LABS: Folate 11.3 ng/mL (> or = 4.0); Vitamin B12 447 pg/mL (200-900)
== END 2023-09-19 09:45 | disposition home or self-care (01) ==
LOC: HO.HMGCLDS 09:44
PROVIDERS: PCP Nurse Practitioner Family; Visit Provider Nurse Practitioner Family
DX: D64.9 Anemia, unspecified (principal); E11.9 Type 2 diabetes mellitus without complications; R82.90 Unspecified abnormal findings in urine
CPT/HCPCS: 36415; 80053; 81001; 81003; 82607; 82728; 82746; 83036; 83540; 85025; 87086

== ENCOUNTER 2023-09-23 13:53 | Outpatient (REF) | payer MEDICARE, SELFPAY ==
[2023-09-23 16:03] LABS: Appearance Urine Turbid; Color Urine Yellow; Glucose Urine UA Negative (Negative); Leukocyte Esterase Urine Small (1+) (Negative); MANUAL DIFF FLAG NO; Nitrite Urine Negative (Negative); PH 5.5 (5.0-9.0); UMIC TRIGGER UACC YES; Urine Blood Moderate (2+) (Negative); Urine Ketones Negative (Negative); Urine Protein Negative (Neg-Trace)
[2023-09-23 16:12] LABS: Basophils Absolute Auto 0.1 X10*3/uL (0.0-0.2); Eosinophils Absolute Auto 0.1 X10*3/uL (0.0-0.4); Eosinophils Percent Auto 0.9 % (0-4); Hematocrit 38.6 % (42.0-52.0); Hemoglobin 12.6 g/dl (14.0-18.0); Imm Gran Abs Auto 0.04 X10*3/uL (0.00-0.03); Imm Gran Pct Auto 0.5 % (0.0-0.4); Immature Retic Fraction 7.4 % (2.3-13.4); Lymphocytes Absolute Auto 0.9 X10*3/uL (1.2-4.9); Lymphocytes Percent Auto 11.3 % (20-40); Mean Corpuscular HGB Conc 32.6 g/dl (31.0-36.0); Mean Corpuscular Volume 91.9 fL (80.0-98.0); Mean Platelet Volume 12.3 fL (9.4-12.4); Monocytes Absolute Auto 0.6 X10*3/uL (0.1-1.2); Monocytes Percent Auto 7.4 % (2-11); Neutrophils Percent Auto 78.9 % (45-73); Platelet Count 188 X10*3/uL (160-400); Red Cell Distribution Width 13.2 % (11.0-16.0); Retic HGB Equivalent 34.1 pg (30.0-35.0); Reticulocyte Percent 1.2 % (0.5-1.8); Reticulocytes Absolute 0.049 X10*6/uL (0.026-0.095); White Blood Count 7.7 X10*3/uL (4.8-10.8)
[2023-09-23 16:15] LABS: Bacteria Urine None Seen (None Seen); Hyaline Casts Urine 0-2 /LPF (0-2); RBC Urine 0-2 /HPF (0-2); Squamous Epithelial Cell Urine 0-2 /HPF (0-2); UACC Culture Trigger YES
[2023-09-23 16:25] LABS: C Reactive Protein < 0.10 mg/dL (< or = 0.50); Lactate Dehydrogenase 180 U/L (118-273)
[2023-09-23 16:46] LABS: Rheumatoid Factor < 13.0 IU/mL (<15.0)
[2023-09-23 16:48] LABS: Erythrocyte Sedimentation Rate 8 MM/HR (0-15)
[2023-09-24 11:39] LABS: Hematocrit 37.4 % (38.5-50.0); Hemoglobin 12.6 g/dL (13.2-17.1); MCH 30.2 pg (27.0-33.0); MCV 89.7 fL (80.0-100.0); RBC 4.17 Million/uL (4.20-5.80)
[2023-09-24 11:48] LABS: Haptoglobin 130 mg/dL (43-212)
[2023-09-25 13:08] LABS: Anti Nuclear Antibody Screen NEGATIVE (NEGATIVE)
== END 2023-09-23 13:54 | disposition home or self-care (01) ==
LOC: HO.HMGCLDS 13:53
PROVIDERS: PCP Nurse Practitioner Family; Visit Provider Nurse Practitioner Family
DX: D64.9 Anemia, unspecified (principal)
CPT/HCPCS: 36415; 81001; 81003; 82274; 83010; 83020; 83615; 85014; 85018; 85025; 85041; 85045; 85652; 86038; 86140; 86431; 87086

== ENCOUNTER 2023-10-21 | Outpatient (REF) | payer MEDICARE, SELFPAY ==
[2023-10-25 10:17] LABS: FIT Int Ctl YES; FIT1 NEGATIVE (NEGATIVE); FIT2 NEGATIVE (NEGATIVE)
== END 2023-10-21 00:01 | disposition home or self-care (01) ==
LOC: HO.LNP
PROVIDERS: Visit Provider Nurse Practitioner Family
DX: D64.9 Anemia, unspecified (principal)
CPT/HCPCS: 82274

== ENCOUNTER 2023-11-05 12:36 | Outpatient (AMB) | payer MEDICARE, SELFPAY ==
--- NOTE | 2023-11-05 12:45 | MHC.PC.OV ---
Vital Signs 11/05/23 12:47 11/05/23 13:40 Height 6 ft Weight 249 lb BMI 33.8 BP 130/90 H 118/66 Blood Pressure Location Lt brachial Lt brachial Position Sitting Sitting Pulse 81 Pulse Source Pulse Oximeter Pulse Oximetry (%) 98 Oxygen Delivery Method Room Air Intake Visit Reasons: Annual PE Intake Note: Patient here for physical exam. pt would like to review labs Allergies No Known Allergies Allergy (Verified 11/05/23 14:02) Medication List - Last Reconciled 11/05/23 by SHELDON Arce amiodarone 100 mg PO DAILY amlodipine 5 mg PO DAILY apixaban (Eliquis) 5 mg PO BID bisacodyl (Dulcolax (bisacodyl)) 20 mg (4 x 5 mg) PO ONCE 1 day blood sugar diagnostic (Trendmeon Ultra Test strips) tid testing hydralazine mg PO lisinopril 40 mg PO DAILY 90 days metformin 500 mg PO BID 90 days polyethylene glycol 3350 (Miralax) 238 grams PO ONCE PRN 1 day terazosin 10 mg PO BEDTIME 90 days Tobacco use date assessed: 07/02/23 Fall risk assessment: No Falls in past year Last assessed Fall Risk: 11/05/23 Dental Screening Dental Screen Date: 07/02/23 HPI Annual PE HPI Details Pt is here for a PE. Will order labs. PSA is up to date. Pt is a diabetic, on an ROHIT. Last A1C was 5.8, microalbumin is up to date. Denies polyuria, polydipsia, and neuropathy. Pt denies any signs and symptoms of hypoglycemia and does know how to correct it. Anemia noted on last labs, will order further labs. Recent Afib, ablation performed. Pt is following up with cardiology, pt is completely asymptomatic. [facility] Medical History Acute coronary syndrome Atrial fibrillation White coat syndrome with hypertension Obesity Adjustment disorder with depressed mood HTN (hypertension) Diabetes BPH (benign prostatic hyperplasia) Kidney stones Surgical History Hx of right knee surgery History of surgery of head Social History Housing: Apartment Housing Other:: - 3 children Alcohol intake: never Patient Tobacco Use Status: Never used Tobacco e-Cigarette/Vaping Use: Never Used Second Hand Smoke Exposure: No service: Yes Current occupational status: employed Current occupation: [employer] Current occupational exposures/hazards: No Cognitive needs: No Hearing needs: No Vision needs: No Questionnaire PHQ-9 Over the last 2 weeks, how often have you been bothered by any of the following problems? 44683 - PHQ-9 Billing: Patient declined-do not bill Source: Developed by Drs. Ernie Garcia, Mindi Barton, Richard Brooks and colleagues, with an educational kvng from [employer]. Thrive Questionnaire Date Thrive assessed: 11/02/23 I am a: Patient What is your living situation today?: I have a steady place to live Within the past 12 months, did the food you bought not last and you didn't have the money to get more?: Never true Within the past 12 months, did you worry whether your food would run out before you got money to buy more?: Never true Do you have trouble paying for medicines?: No Do you have trouble getting transportation to medical appointments?: No Do you have trouble paying your heating and electricity bill?: No Do you have trouble taking care of your child, family member or friend?: No Do you have trouble with day-to-day activities such as bathing, preparing meals, shopping, managing finances, etc.?: No Are you currently unemployed and looking for a job?: No Are you interested in more education?: No Please select the resources that you would like help with: Housing/Prison Currently or been in a relationship where the following occur: No concerns reported THRIVE Score: 0 AUDIT C Alcohol Use Questionnaire (AUDIT-C) 1. How often do you have a drink containing alcohol?: Never Total Score: 0 KYLE-7 AMB Questionnaire KYLE-7 Date KYLE - 7 assessed: 07/02/23 Feeling nervous, anxious, or on edge: 0 = Not at all Not being able to stop or control worryin = Not at all Worrying too much about different things: 0 = Not at all Trouble relaxin = Not at all Being so restless that it is hard to sit still: 0 = Not at all Becoming easily annoyed or irritable: 0 = Not at all Feeling afraid as if something awful might happen: 0 = Not at all Total KYLE-7 score (0-4 normal; 5-9 mild; 10-14 moderate; 15-21 severe): 0 Source: Developed by Drs. Ernie Garcia, Mindi Barton, Richard Brooks and colleagues, with an educational kvng from [employer]. KYLE-7 Assessment Billing KYLE-7 Assessment Tool: KYLE-7 Assessment 61240 Review of Systems Const Denies chills and Denies fever(s) Eyes Denies blurry vision ENT Denies vertigo, Denies dizziness and Denies sore throat Card Denies chest pain at rest, Denies chest pain with activity, Denies diaphoresis, Denies dyspnea and Denies dyspnea on exertion Resp Denies cough, Denies dyspnea, Denies dyspnea on exertion and Denies wheezing GI Denies abdominal pain, Denies melena, Denies hematochezia, Denies constipation, Denies diarrhea and Denies loose stools Denies hematuria Musc Denies numbness and Denies tingling Skin/Breast Denies lesions Neuro Denies vertigo, Denies dizziness, Denies numbness and Denies tingling Psych Denies anxiety, Denies depression, Denies homicidal ideation, Denies suicidal ideation and Denies other (substance abuse) Aller/Immun Denies wheezing Physical exam (Primary Care) Vital Signs: Last Vital Signs Pulse 81 11/05/23 12:47 BP 118/66 11/05/23 13:40 Pulse Ox 98 11/05/23 12:47 Oxygen Delivery Method Room Air 11/05/23 12:47 BMI result Body Mass Index 33.8 Tobacco/Smoking Status: Tobacco use Status Tobacco use date assessed 07/02/23 11/05/23 12:48 Patient Tobacco Use Status Never used Tobacco 11/05/23 12:48 e-Cigarette/Vaping Use Never Used 11/05/23 12:48 Thrive Assessment: Date of Thrive Assessment Date Thrive assessed 11/02/23 11/05/23 12:48 Currently or been in a relationship where the following occur: No concerns reported Const General: cooperative Nutritional Appearance: well nourished Orientation/consciousness: patient oriented x3 HENMT Head: Yes normal to inspection, Yes normocephalic and Yes atraumatic Ears: TM's normal bilaterally Eyes General: appearance normal, both eyes and all related structures Alignment and Position: alignment normal and position normal Neck Neck: Yes normal visual inspection and Yes no lymphadenopathy Thyroid: Thyroid normal Resp Effort & Inspection: normal respiratory effort Auscultation: clear to auscultation bilaterally Cardio Rate: regular rate Rhythm: regular rhythm Heart sounds: S1 normal heart sound present, S2 normal heart sound present and no murmurs GI Palpation (GI): Soft to palpation and nontender Auscultation: normal bowel sounds Male General Exam: Yes normal external exam Penis: normal penis Scrotum: scrotum normal, testes descended bilaterally and no inguinal hernias Testes: no testicular mass Skin Rashes: no rashes Neuro Other: + sensation with use of monofilament General: patient oriented x3, moves all extremities, no focal motor deficits and deep tendon reflexes 2+ bilaterally Romberg Test: Negative Psych Appearance: grossly normal Mental Status: mental status grossly normal Speech and movement: Normal speech and movement present Affect: normal affect Attitude: cooperative Thought process: Normal thought process present Thought content: Normal thought content present Insight: Good insight present (Psych) Judgement: Good judgement present (Psych) Assessment and Plan Assessment & Plan (1) Diabetes: Code(s): E11.9 - Type 2 diabetes mellitus without complications Plan: a1c ordered (2) Abnormal prostate on physical examination: Code(s): N42.9 - Disorder of prostate, unspecified Plan: psa already performed Plan The patient agreed to the use of a medical policy specialist for this encounter. Scribed for PATRIC Yanez by Sandhya Coleman medical policy specialist, on 11/05/2023 at 13:20 EST. Orders: Orders Anti DNA DS Antibody Today D64.9 - Anemia, unspecified Erythropoietin (EPO) Today D64.9 - Anemia, unspecified Hemoglobin A1c Today E11.9 - Type 2 diabetes mellitus without complications DNA Double Stranded-Crithidia Today D64.9 - Anemia, unspecified Erythrocyte Sedimentation Rate Today D64.9 - Anemia, unspecified Medications: Changed From amlodipine 2.5 mg PO DAILY 90 tabs 0RF To amlodipine 5 mg PO DAILY Coding Level of Care Code Est Pt Prev Care >65y(00737) Diagnoses Diabetes E11.9 Abnormal prostate on physical examination N42.9 Additional Codes KYLE-7 Assessment Billing - KYLE-7 Assessment Tool: KYLE-7 Assessment 36390 ([id number])
[2023-11-05 12:47] VITALS: BP 130/90; PULSE 81; O2SAT 98; BMI 33.8
[2023-11-05 13:40] VITALS: BP 118/66
== END 2023-11-05 13:41 | disposition home or self-care (01) ==
PROVIDERS: PCP Nurse Practitioner Family; Visit Provider Nurse Practitioner Family
DX: Z00.00 Encounter for general adult medical examination without abnormal findings (principal); E11.9 Type 2 diabetes mellitus without complications; N42.9 Disorder of prostate, unspecified
CPT/HCPCS: 99397

== ENCOUNTER 2023-11-05 13:42 | Outpatient (REF) | payer MEDICARE, SELFPAY ==
[2023-11-05 16:09] LABS: MANUAL DIFF FLAG NO
[2023-11-05 16:31] LABS: Basophils Absolute Auto 0.1 X10*3/uL (0.0-0.2); Basophils Percent Auto 1.5 % (0-2); Eosinophils Absolute Auto 0.1 X10*3/uL (0.0-0.4); Hematocrit 39.5 % (42.0-52.0); Hemoglobin 12.9 g/dl (14.0-18.0); Imm Gran Abs Auto 0.03 X10*3/uL (0.00-0.03); Imm Gran Pct Auto 0.5 % (0.0-0.4); Lymphocytes Absolute Auto 0.8 X10*3/uL (1.2-4.9); Lymphocytes Percent Auto 13.7 % (20-40); Mean Corpuscular HGB Conc 32.7 g/dl (31.0-36.0); Mean Corpuscular Volume 91.9 fL (80.0-98.0); Monocytes Absolute Auto 0.5 X10*3/uL (0.1-1.2); Monocytes Percent Auto 8.7 % (2-11); Neutrophils Absolute Auto 4.3 x10*3/uL (2.0-8.3); Neutrophils Percent Auto 73.6 % (45-73); Platelet Count 199 X10*3/uL (160-400); Red Cell Distribution Width 12.8 % (11.0-16.0); White Blood Count 5.9 X10*3/uL (4.8-10.8)
[2023-11-05 16:49] LABS: Alanine Aminotransferase 13 U/L (0-40); Albumin Level 4.4 g/dL (3.5-5.0); Alkaline Phosphatase 64 U/L (39-117); Anion Gap 13 (12-20); Aspartate Amino Transferase 15 U/L (5-37); Bilirubin Total 0.5 mg/dL (0.0-1.0); Blood Urea Nitrogen 17 mg/dL (9-16); Calcium 9.6 mg/dL (8.4-10.2); Carbon Dioxide 25 mmol/L (22-29); Chloride 107 mmol/L (96-108); Estimated Glomerular Filt Rate > 60; Glucose Random 119 mg/dL (60-115); Lactate Dehydrogenase 245 U/L (118-273); Potassium 4.2 mmol/L (3.3-5.1); Sodium 141 mmol/L (135-145); Total Protein 7.1 g/dL (6.5-8.0)
[2023-11-05 17:00] LABS: Estimated Average Glucose 114 mg/dL; Hemoglobin A1c % 5.6 % (<6.0)
[2023-11-05 17:21] LABS: Erythrocyte Sedimentation Rate 7 MM/HR (0-15)
[2023-11-07 12:44] LABS: Erythropoietin (EPO) 10.1 mIU/mL (2.6-18.5)
[2023-11-07 13:58] LABS: Anti DNA DS Antibody <1 IU/mL
[2023-11-10 07:59] LABS: Anti Nuclear Antibody Screen NEGATIVE (NEGATIVE)
[2023-11-17 14:48] LABS: DNAds, Crithidia Antibody Negative (Negative)
== END 2023-11-05 13:43 | disposition home or self-care (01) ==
LOC: HO.HMGCLDS 13:42
PROVIDERS: PCP Nurse Practitioner Family; Visit Provider Nurse Practitioner Family
DX: D64.9 Anemia, unspecified (principal); E11.9 Type 2 diabetes mellitus without complications
CPT/HCPCS: 36415; 80053; 82668; 83036; 83615; 85025; 85652; 86038; 86225; 86255

== ENCOUNTER 2024-01-08 15:28 | Outpatient (AMB) | payer MEDICARE, SELFPAY ==
[2024-01-08 15:29] VITALS: BP 132/76; PULSE 98; O2SAT 97; BMI 34.4
--- NOTE | 2024-01-08 15:29 | MHC.PC.OV ---
Vital Signs 01/08/24 15:29 Height 6 ft Weight 254 lb BMI 34.4 BP 132/76 Blood Pressure Location Lt brachial Position Sitting Pulse 98 Pulse Source Pulse Oximeter Pulse Oximetry (%) 97 Intake Visit Reasons: 3M F/U Intake Note: pt is here for 3 month follow up Filter Press Tender Required: No Accompanied by: Self / Same As Patient Allergies No Known Allergies Allergy (Verified 01/08/24 15:29) Medication List - Last Reconciled 01/08/24 by SHELDON Arce amiodarone 100 mg PO DAILY amlodipine 5 mg PO DAILY apixaban (Eliquis) 5 mg PO BID bisacodyl (Dulcolax (bisacodyl)) 20 mg (4 x 5 mg) PO ONCE 1 day blood sugar diagnostic ([employer] Ultra Test strips) tid testing hydralazine mg PO lisinopril 40 mg PO DAILY 90 days metformin 500 mg PO BID 90 days polyethylene glycol 3350 (Miralax) 238 grams PO ONCE PRN 1 day terazosin 10 mg PO BEDTIME 90 days Tobacco use date assessed: 07/02/23 Fall risk assessment: No Falls in past year Last assessed Fall Risk: 01/08/24 Dental Screening Dental Screen Date: 07/02/23 HPI 3M F/U HPI Details Pt is a diabetic, on an ROHIT. A1C in office today is 5.7. Microalbumin is up to date. Denies polyuria, polydipsia, and neuropathy. Pt denies any signs and symptoms of hypoglycemia and does know how to correct it. Eye exam is up to date. Pt has a hx of anemia, will cont to monitor. Pt reports feeling well and is still quite active. Pt follows up with [facility], and will consult with them reguarding next colonoscopy procedure. [facility] Medical History Acute coronary syndrome Atrial fibrillation White coat syndrome with hypertension Obesity Adjustment disorder with depressed mood HTN (hypertension) Diabetes BPH (benign prostatic hyperplasia) Kidney stones Surgical History Hx of right knee surgery History of surgery of head Social History Housing: Apartment Housing Other:: - 3 children Alcohol intake: never Patient Tobacco Use Status: Never used Tobacco e-Cigarette/Vaping Use: Never Used Second Hand Smoke Exposure: No service: Yes Current occupational status: employed Current occupation: [employer] Current occupational exposures/hazards: No Cognitive needs: No Hearing needs: No Vision needs: No Questionnaire PHQ-9 Over the last 2 weeks, how often have you been bothered by any of the following problems? 1. Little interest or pleasure in doing things: not at all 2. Feeling down, depressed, or hopeless: not at all 3. Trouble falling or staying asleep, or sleeping too much: not at all 4. Feeling tired or having little energy: not at all 5. Poor appetite or overeating: not at all 6. Feeling bad about yourself - or that you are a failure or have let yourself or your family down: not at all 7. Trouble concentrating on things, such as reading the newspaper or watching television: not at all 8. Moving or speaking so slowly that other people could have noticed. Or the opposite - being so fidgety or restless that you have been moving around a lot more than usual: not at all 9. Thoughts that you would be better off or of hurting yourself in some way: not at all Total score: 0 Depression Screening Interpretation: Negative Depression Screening Done: Yes 23085 - PHQ-9 Billing: Yes Source: Developed by Drs. Ernie Garcia, Mindi Barton, Richard Brooks and colleagues, with an educational kvng from [employer]. Thrive Questionnaire Date Thrive assessed: 01/08/24 I am a: Patient What is your living situation today?: I have a steady place to live Within the past 12 months, did the food you bought not last and you didn't have the money to get more?: Never true Within the past 12 months, did you worry whether your food would run out before you got money to buy more?: Never true Do you have trouble paying for medicines?: No Do you have trouble getting transportation to medical appointments?: No Do you have trouble paying your heating and electricity bill?: No Do you have trouble taking care of your child, family member or friend?: No Do you have trouble with day-to-day activities such as bathing, preparing meals, shopping, managing finances, etc.?: No Are you currently unemployed and looking for a job?: No Are you interested in more education?: No Please select the resources that you would like help with: None Currently or been in a relationship where the following occur: No concerns reported THRIVE Score: 0 AUDIT C Alcohol Use Questionnaire (AUDIT-C) 1. How often do you have a drink containing alcohol?: Never 3. How often do you have six or more drinks on one occasion?: Never Total Score: 0 Score Reviewed/Action Taken: Yes KYLE-7 AMB Questionnaire KYLE-7 Date KYLE - 7 assessed: 01/08/24 Feeling nervous, anxious, or on edge: 0 = Not at all Not being able to stop or control worryin = Not at all Worrying too much about different things: 0 = Not at all Trouble relaxin = Not at all Being so restless that it is hard to sit still: 0 = Not at all Becoming easily annoyed or irritable: 0 = Not at all Feeling afraid as if something awful might happen: 0 = Not at all Total KYLE-7 score (0-4 normal; 5-9 mild; 10-14 moderate; 15-21 severe): 0 Source: Developed by Drs. Ernie Garcia, Mindi Barton, Richard Brooks and colleagues, with an educational kvng from [employer]. KYLE-7 Assessment Billing KYLE-7 Assessment Tool: KYLE-7 Assessment 71640 Review of Systems Const Reports as per HPI Physical exam (Primary Care) Vital Signs: Last Vital Signs Pulse 98 01/08/24 15:29 BP 132/76 01/08/24 15:29 Pulse Ox 97 01/08/24 15:29 BMI result Body Mass Index 34.4 Tobacco/Smoking Status: Tobacco use Status Tobacco use date assessed 07/02/23 01/08/24 15:30 Patient Tobacco Use Status Never used Tobacco 01/08/24 15:30 e-Cigarette/Vaping Use Never Used 01/08/24 15:30 PHQ-9: PHQ-9 Score PHQ-9: Total score 0 01/08/24 15:30 Depression Screening Interpretation: Negative Thrive Assessment: Date of Thrive Assessment Date Thrive assessed 01/08/24 01/08/24 15:30 Currently or been in a relationship where the following occur: No concerns reported Const General: cooperative Nutritional Appearance: obese Orientation/consciousness: patient oriented x3 Resp Effort & Inspection: normal respiratory effort Auscultation: clear to auscultation bilaterally Cardio Rate: regular rate Rhythm: regular rhythm Heart sounds: S1 normal heart sound present and S2 normal heart sound present Neuro General: patient oriented x3 Extrem Other: bilat feet: + sensation with use of monofilament, feet intact Psych Appearance: grossly normal Mental Status: mental status grossly normal Speech and movement: Normal speech and movement present Affect: normal affect Attitude: cooperative Thought process: Normal thought process present Thought content: Normal thought content present Insight: Good insight present (Psych) Judgement: Good judgement present (Psych) Results AMB Hemoglobin A1c AMB Hemoglobin A1c 5.7 % Last Edit by Fili Chu CMA on 01/08/24 15:58 Coding Level of Care Code Est Pt Level 3 (66062) Diagnoses Diabetes E11.9 Anemia D64.9 Additional Codes KYLE-7 Assessment Billing - KYLE-7 Assessment Tool: KYLE-7 Assessment 58793 ([id number]) Assessment & Plan Assessment & Plan (1) Diabetes: Code(s): E11.9 - Type 2 diabetes mellitus without complications Category: Medical Plan: Labs ordered (2) Anemia: Code(s): D64.9 - Anemia, unspecified Category: Medical Plan: will cont to monitor Plan The patient agreed to the use of a medical reviewer for this encounter. Scribed for PATRIC Yanez by Sandhya Coleman medical reviewer, on 01/08/2024 at 15:40 EST. Orders: Orders Comprehensive [place]. Panel Fast Today E11.9 - Type 2 diabetes mellitus without complications UA CC w/rflx Micro + Cult Today E11.9 - Type 2 diabetes mellitus without complications Lipid Panel Today E11.9 - Type 2 diabetes mellitus without complications Reticulocyte Count Today D64.9 - Anemia, unspecified AMB Hemoglobin A1c Today Z13.9 - Encounter for screening, unspecified Complete Blood Count Auto Diff Today E11.9 - Type 2 diabetes mellitus without complications TSH reflex Free T4 Today E11.9 - Type 2 diabetes mellitus without complications Protein Electrophoresis, Serum Today D64.9 - Anemia, unspecified Immunofixation Pnl, Serum Today D64.9 - Anemia, unspecified Ferritin Today D64.9 - Anemia, unspecified IRON PROFILE Today D64.9 - Anemia, unspecified Vitamin B12 and Folate Today D64.9 - Anemia, unspecified
== END 2024-01-08 16:07 | disposition home or self-care (01) ==
PROVIDERS: PCP Nurse Practitioner Family; Visit Provider Nurse Practitioner Family
DX: E11.9 Type 2 diabetes mellitus without complications (principal); D64.9 Anemia, unspecified

== ENCOUNTER → 2024-01-08 15:28 | Outpatient (BNVA) | payer MEDICARE, SELFPAY | PROVIDERS: PCP Nurse Practitioner Family; Visit Provider Nurse Practitioner Family | DX: E11.9 Type 2 diabetes mellitus without complications (principal); D64.9 Anemia, unspecified | CPT/HCPCS: 83036; 96127; 99212 ==

== ENCOUNTER 2024-01-28 10:35 | Outpatient (REF) | payer MEDICARE, SELFPAY ==
[2024-01-28 13:11] LABS: MANUAL DIFF FLAG NO
[2024-01-28 13:31] LABS: Basophils Absolute Auto 0.1 X10*3/uL (0.0-0.2); Basophils Percent Auto 1.7 % (0-2); Eosinophils Absolute Auto 0.2 X10*3/uL (0.0-0.4); Eosinophils Percent Auto 3.5 % (0-4); Hematocrit 41.7 % (42.0-52.0); Hemoglobin 13.6 g/dl (14.0-18.0); Imm Gran Abs Auto 0.05 X10*3/uL (0.00-0.03); Imm Gran Pct Auto 0.8 % (0.0-0.4); Lymphocytes Absolute Auto 1.3 X10*3/uL (1.2-4.9); Lymphocytes Percent Auto 20.8 % (20-40); Mean Corpuscular HGB Conc 32.6 g/dl (31.0-36.0); Mean Corpuscular Hemoglobin 29.9 pg (27.0-33.0); Mean Corpuscular Volume 91.6 fL (80.0-98.0); Mean Platelet Volume 11.6 fL (9.4-12.4); Monocytes Absolute Auto 0.7 X10*3/uL (0.1-1.2); Neutrophils Absolute Auto 3.7 x10*3/uL (2.0-8.3); Neutrophils Percent Auto 62.2 % (45-73); Platelet Count 200 X10*3/uL (160-400); Red Blood Count 4.55 X10*6/uL (4.60-5.80); Red Cell Distribution Width 12.5 % (11.0-16.0); Retic HGB Equivalent 34.7 pg (30.0-35.0); Reticulocyte Percent 1.3 % (0.5-1.8); Reticulocytes Absolute 0.058 X10*6/uL (0.026-0.095)
[2024-01-28 13:38] LABS: Appearance Urine Clear; Color Urine Yellow; Glucose Urine UA Negative (Negative); Leukocyte Esterase Urine Trace (Negative); Nitrite Urine Negative (Negative); PH 5.5 (5.0-9.0); Specific Gravity - Urine 1.015 (1.005-1.025); UMIC TRIGGER UACC YES; Urine Blood Negative (Negative); Urine Ketones Negative (Negative); Urine Protein Negative (Neg-Trace)
[2024-01-28 13:43] LABS: Bacteria Urine None Seen (None Seen); Hyaline Casts Urine 0-2 /LPF (0-2); RBC Urine 0-2 /HPF (0-2); Squamous Epithelial Cell Urine 0-2 /HPF (0-2); WBC Urine 0-5 /HPF (0-5)
[2024-01-28 13:44] LABS: Alanine Aminotransferase 19 U/L (0-40); Albumin Level 4.3 g/dL (3.5-5.0); Alkaline Phosphatase 66 U/L (39-117); Aspartate Amino Transferase 20 U/L (5-37); Bilirubin Direct 0.2 mg/dL (0.0-0.5); Bilirubin Total 0.4 mg/dL (0.0-1.0); Total Protein 7.1 g/dL (6.5-8.0)
[2024-01-28 13:52] LABS: Alanine Aminotransferase 18 U/L (0-40); Albumin Level 4.3 g/dL (3.5-5.0); Alkaline Phosphatase 66 U/L (39-117); Anion Gap 13 (12-20); Aspartate Amino Transferase 19 U/L (5-37); Bilirubin Total 0.4 mg/dL (0.0-1.0); Blood Urea Nitrogen 17 mg/dL (9-16); Calcium 9.8 mg/dL (8.4-10.2); Carbon Dioxide 27 mmol/L (22-29); Chloride 110 mmol/L (96-108); Cholesterol 190 mg/dL (<200); Estimated Glomerular Filt Rate > 60; Ferritin 107 ng/mL (20-250); Glucose Fasting 120 mg/dL (60-99); HDL Cholesterol 44 mg/dL (>40); Iron 102 mcg/dL (45-160); LDL Cholesterol Calculated 105 mg/dL (<100); Percent Iron Saturation 35 % (15-50); Potassium 4.3 mmol/L (3.3-5.1); Sodium 146 mmol/L (135-145); TSH reflex Free T4 3.78 uIU/mL (0.32-4.0); Total Iron Binding Capacity 292 mcg/dL (228-428); Total Protein 7.1 g/dL (6.5-8.0); Triglycerides 205 mg/dL (<150); Unsaturated Iron Binding 190 ug/dL
[2024-01-28 14:10] LABS: Folate 13.8 ng/mL (> or = 4.0); Vitamin B12 449 pg/mL (200-900)
[2024-01-31 07:29] LABS: PES - Abn Protein Band 1 <0.2 g/dL (NONE DETECTED); Prot Elec - Albumin 4.3 g/dL (3.8-4.8); Prot Elec - Alpha1 0.3 g/dL (0.2-0.3); Prot Elec - Alpha2 0.9 g/dL (0.5-0.9); Prot Elec - Beta 1 0.4 g/dL (0.4-0.6); Prot Elec - Beta 2 0.5 g/dL (0.2-0.5); Prot Elec - Gamma 0.7 g/dL (0.8-1.7)
[2024-01-31 18:28] LABS: IgA 321 mg/dL (70-320); IgG 751 mg/dL (600-1540); IgM 56 mg/dL (50-300)
== END 2024-01-28 10:36 | disposition home or self-care (01) ==
LOC: HO.HMGCLDS 10:35
PROVIDERS: PCP Nurse Practitioner Family; Referring Provider Physician Assistant; Visit Provider Nurse Practitioner Family
DX: D64.9 Anemia, unspecified (principal); E11.9 Type 2 diabetes mellitus without complications; I48.91 Unspecified atrial fibrillation
CPT/HCPCS: 36415; 80053; 80061; 80076; 81001; 82248; 82607; 82728; 82746; 82784; 83540; 84165; 84443; 85025; 85045; 86334

== ENCOUNTER 2024-07-09 08:04 | Outpatient (AMB) | payer MEDICARE, SELFPAY ==
--- NOTE | 2024-07-09 08:06 | A.OFFPC_ITS ---
Vital Signs 07/09/24 08:09 Height 6 ft Weight 251 lb BMI 34.0 BP 142/80 H Blood Pressure Location Lt brachial Position Sitting Pulse 89 Pulse Source Pulse Oximeter Pulse Oximetry (%) 98 Oxygen Delivery Method Room Air Intake Visit Reasons: Follow up - HTN Intake Note: patient is here for DM/HT follow up, pt has colonoscopy booked for 08/2024 Bird Tender Required: No Accompanied by: Self / Same As Patient Allergies No Known Allergies Allergy (Verified 07/09/24 08:09) Medication List - Last Reconciled 07/09/24 by Gilmar Yates, [facility]- amiodarone 100 mg PO DAILY amlodipine 5 mg PO DAILY apixaban (Eliquis) 5 mg PO BID blood sugar diagnostic ([employer] Ultra Test strips) tid testing hydralazine mg PO lisinopril 40 mg PO DAILY 90 days metformin 500 mg PO BID 90 days terazosin 10 mg PO BEDTIME 90 days Tobacco use date assessed: 07/09/24 Fall risk assessment: No Falls in past year Last assessed Fall Risk: 07/09/24 Dental Screening Dental Screen Date: 07/09/24 Did you have a dental visit in the last 12 months?: Yes Did you have a dental problem in the last 6 months where you did not have access to dental care?: No Was dental information given to patient?: Patient has dentist HPI Follow up - HTN HPI Details Chief Complaint The patient presents for management of hypertension and diabetes. History of Present Illness The patient is a 74-year-old male presenting for management of hypertension and Type 2 diabetes mellitus. He has noticed symptomatic hypotensive episodes at home with systolic blood pressure readings falling below 110 mmHg, and a recorded low of 89 mmHg. He is currently on amlodipine, and discussions are ongoing regarding dosage adjustment with the patient's mainspring winder scheduled to be seen in two weeks. At today's visit, blood pressure readings are slightly elevated which may be influenced by his activity prior to arrival. His diabetes management is stable with a hemoglobin A1c of 6.2% today. The patient experiences denies any polyuria and polydipsia, and no sensory loss with positive findings on monofilament testing. Denies associated symptoms such as chest pain, blurred vision, abdominal pain, headaches, or shortness of breath, but does report experiencing dizziness. Social History Health Maintenance - Hemoglobin A1c at 6.2% reviewed today. - Feet were intact with bilateral sensat ion verified using a monofilament test. - Discussions to potentially reduce amlo dipine dosage based on recent mainspring winder advice. Review of Systems - Cardiovascular: Denies chest pain. - Neurology: Reports dizziness with low BPs; denies headaches. - Visual: Denies blurred vision. - Abdominal: Denies abdominal discomfort . - Respiratory: Denies shortness of breat h. Physical Exam General: Cooperative, healthy appearing, comfortable, no acute distress and well developed Orientation: Patient oriented x3 Limitations: No limitations Head: Normal to inspection Ears: Hearing grossly normal bilaterally Nose: Normal external nose present Face and sinus: Normal facial exam Eyes: Appearance normal, both eyes and all related structures Neck: Normal visual inspection and Yes full ROM Respiratory: Normal respiratory effort and able to speak in complete sentences. Clear to auscultation bilaterally Cardiovascular: Regular rate and rhythm. Normal S1 and S2 GI: Normal to inspection. Soft to palpation and nontender Skin: No rashes or lesions noted Neuro: Patient oriented x3 Extremities: Feet were intact bilaterally with positive sensation using monofilament. Normal to inspection Results - Labs: Hemoglobin A1c at 6.2% obtained today. Plan 1. 2%, and the patient?s neuropathy does not appear to have worsened with bilateral sensation intact. There were no acute symptoms requiring intervention at this visit. Continued close monitoring and coordination with the mainspring winder were prioritized to maintain stable management of these chronic conditions.: Discussion Notes I discussed with the patient the symptomatic low blood pressures recorded at home and the mainspring winder?s plan to reduce amlodipine dosage. The benefits of stabilizing blood pressures were emphasized, including minimizing hypotension- related symptoms. We reviewed the excellent control of his Type 2 diabetes mellitus, and I assured that the current management strategies are proving effective with an A1c of 6.2%. The patient?s neuropathy has been stable with good sensation in the feet, confirmed during the exam. He was advised to follow up with his mainspring winder as planned and report any new symptoms such as increased dizziness or other concerns. Patient Instructions - Continue current medications as prescr ibed. - Monitor your blood pressure at home re gularly and record your findings. - Be aware of symptoms like increased di zziness and report them. - Follow up with your mainspring winder as sc heduled within the next two weeks. - Maintain current diabetes management p ractices, including diet and exercise. - Return for review if experiencing any new or worsening symptoms. [facility] Medical History Acute coronary syndrome Atrial fibrillation White coat syndrome with hypertension Obesity Adjustment disorder with depressed mood HTN (hypertension) Diabetes BPH (benign prostatic hyperplasia) Kidney stones Surgical History Hx of right knee surgery History of surgery of head Social History Housing: Apartment Housing Other:: - 3 children Alcohol intake: never Patient Tobacco Use Status: Never used Tobacco e-Cigarette/Vaping Use: Never Used Second Hand Smoke Exposure: No service: Yes Current occupational status: employed Current occupation: [employer] Current occupational exposures/hazards: No Cognitive needs: No Hearing needs: No Vision needs: No Questionnaire PHQ-9 Over the last 2 weeks, how often have you been bothered by any of the following problems? 1. Little interest or pleasure in doing things: not at all 2. Feeling down, depressed, or hopeless: not at all 3. Trouble falling or staying asleep, or sleeping too much: not at all 4. Feeling tired or having little energy: not at all 5. Poor appetite or overeating: not at all 6. Feeling bad about yourself - or that you are a failure or have let yourself or your family down: not at all 7. Trouble concentrating on things, such as reading the newspaper or watching television: not at all 8. Moving or speaking so slowly that other people could have noticed. Or the opposite - being so fidgety or restless that you have been moving around a lot more than usual: not at all 9. Thoughts that you would be better off or of hurting yourself in some way: not at all Total score: 0 Depression Screening Interpretation: Negative Depression Screening Done: Yes 35241 - PHQ-9 Billing: Yes Source: Developed by Drs. Ernie Garcia, Mindi Barton, Richard Brooks and colleagues, with an educational kvng from [employer]. Thrive Questionnaire Date Thrive assessed: 03/30/25 I am a: Patient What is your living situation today?: I have a steady place to live Within the past 12 months, did the food you bought not last and you didn't have the money to get more?: Never true Within the past 12 months, did you worry whether your food would run out before you got money to buy more?: Never true Do you have trouble paying for medicines?: No Do you have trouble getting transportation to medical appointments?: No Do you have trouble paying your heating and electricity bill?: No Do you have trouble taking care of your child, family member or friend?: No Do you have trouble with day-to-day activities such as bathing, preparing meals, shopping, managing finances, etc.?: No Are you currently unemployed and looking for a job?: No Are you interested in more education?: No Please select the resources that you would like help with: None Currently or been in a relationship where the following occur: No concerns reported THRIVE Score: 0 AUDIT C Alcohol Use Questionnaire (AUDIT-C) 1. How often do you have a drink containing alcohol?: Never 3. How often do you have six or more drinks on one occasion?: Never Total Score: 0 Score Reviewed/Action Taken: Yes KYLE-7 AMB Questionnaire KYLE-7 Date KYLE - 7 assessed: 07/09/24 Feeling nervous, anxious, or on edge: 0 = Not at all Not being able to stop or control worryin = Not at all Worrying too much about different things: 0 = Not at all Trouble relaxin = Not at all Being so restless that it is hard to sit still: 0 = Not at all Becoming easily annoyed or irritable: 0 = Not at all Feeling afraid as if something awful might happen: 0 = Not at all Total KYLE-7 score (0-4 normal; 5-9 mild; 10-14 moderate; 15-21 severe): 0 Source: Developed by Drs. Ernie Garcia, Mindi Barton, Richard Brooks and colleagues, with an educational kvng from [employer]. KYLE-7 Assessment Billing KYLE-7 Assessment Tool: KYLE-7 Assessment 94996 Physical exam (Primary Care) Vital Signs: Last Vital Signs Pulse 89 07/09/24 08:09 BP 142/80 H 07/09/24 08:09 Pulse Ox 98 07/09/24 08:09 Oxygen Delivery Method Room Air 07/09/24 08:09 BMI result Body Mass Index 34.0 Tobacco/Smoking Status: Tobacco use Status Tobacco use date assessed 07/09/24 07/09/24 08:12 Patient Tobacco Use Status Never used Tobacco 07/09/24 08:07 e-Cigarette/Vaping Use Never Used 07/09/24 08:07 PHQ-9: PHQ-9 Score PHQ-9: Total score 0 07/09/24 08:12 Depression Screening Interpretation: Negative Thrive Assessment: Date of Thrive Assessment Date Thrive assessed 07/05/24 07/09/24 08:07 Currently or been in a relationship where the following occur: No concerns reported Results AMB Hemoglobin A1c AMB Hemoglobin A1c 6.2 % Last Edit by Fili Chu CMA on 07/09/24 08: 41 Coding Level of Care Code Est Pt Level 3 (95904) Diagnoses Diabetes E11.9 HTN (hypertension) I10 Additional Codes KYLE-7 Assessment Billing - KYLE-7 Assessment Tool: KYLE-7 Assessment 49260 ([id number]) PHQ-9 - 01903 - PHQ-9 Billing: Yes ([id number]) Assessment & Plan Assessment & Plan (1) Diabetes: Code(s): E11.9 - Type 2 diabetes mellitus without complications Category: Medical (2) HTN (hypertension): Code(s): I10 - Essential (primary) hypertension Category: Medical Plan . Orders: Orders Complete Blood Count Auto Diff Today E11.9 - Type 2 diabetes mellitus without complications, I10 - Essential (primary) hypertension TSH reflex Free T4 Today E11.9 - Type 2 diabetes mellitus without compl ications, I10 - Essential (primary) hypertension UA CC w/rflx Micro + Cult Today E11.9 - Type 2 diabetes mellitus without complications, I10 - Essential (primary) hypertension Lipid Panel Today E11.9 - Type 2 diabetes mellitus without complications, I10 - Essential (primary) hypertension Comprehensive [place]. Panel Fast Today E11.9 - Type 2 diabetes mellitus without complications, I10 - Essential (primary) hypertension AMB Hemoglobin A1c Today Z13.9 - Encounter for screening, unspecified Medications: Refilled lisinopril 40 mg PO DAILY 90 days 90 tabs 1RF terazosin 10 mg PO BEDTIME 90 days 90 caps 1RF metformin 500 mg PO BID 90 days 180 tabs 1RF
[2024-07-09 08:09] VITALS: BP 142/80; PULSE 89; O2SAT 98; BMI 34.0
== END 2024-07-09 09:13 | disposition home or self-care (01) ==
LOC: HO.HMCC 08:04
PROVIDERS: PCP Nurse Practitioner Family; Visit Provider Nurse Practitioner Family
DX: E11.9 Type 2 diabetes mellitus without complications (principal); I10 Essential (primary) hypertension; Z13.9 Encounter for screening, unspecified

== ENCOUNTER 2024-07-09 08:04 | Outpatient (REF) | payer MEDICARE, SELFPAY ==
[2024-07-09 11:04] LABS: Appearance Urine Clear; Color Urine Yellow; Glucose Urine UA Negative (Negative); Leukocyte Esterase Urine Trace (Negative); Nitrite Urine Negative (Negative); PH 5.5 (5.0-9.0); UMIC TRIGGER UACC YES; Urine Blood Negative (Negative); Urine Ketones Negative (Negative); Urine Protein Negative (Neg-Trace)
[2024-07-09 11:10] LABS: Bacteria Urine None Seen (None Seen); Hyaline Casts Urine 0-2 /LPF (0-2); RBC Urine 0-2 /HPF (0-2); Squamous Epithelial Cell Urine 0-2 /HPF (0-2); WBC Urine 0-5 /HPF (0-5)
[2024-07-09 11:24] LABS: MANUAL DIFF FLAG NO
[2024-07-09 11:34] LABS: Basophils Absolute Auto 0.1 X10*3/uL (0.0-0.2); Basophils Percent Auto 1.6 % (0-2); Eosinophils Absolute Auto 0.2 X10*3/uL (0.0-0.4); Eosinophils Percent Auto 3.6 % (0-4); Hemoglobin 13.9 g/dl (14.0-18.0); Imm Gran Abs Auto 0.04 X10*3/uL (0.00-0.03); Imm Gran Pct Auto 0.7 % (0.0-0.4); Lymphocytes Absolute Auto 1.3 X10*3/uL (1.2-4.9); Lymphocytes Percent Auto 21.8 % (20-40); Mean Corpuscular HGB Conc 33.1 g/dl (31.0-36.0); Mean Corpuscular Hemoglobin 29.8 pg (27.0-33.0); Mean Corpuscular Volume 89.9 fL (80.0-98.0); Monocytes Absolute Auto 0.6 X10*3/uL (0.1-1.2); Monocytes Percent Auto 9.9 % (2-11); Neutrophils Absolute Auto 3.8 x10*3/uL (2.0-8.3); Neutrophils Percent Auto 62.4 % (45-73); Platelet Count 231 X10*3/uL (160-400); Red Blood Count 4.67 X10*6/uL (4.60-5.80); Red Cell Distribution Width 12.5 % (11.0-16.0); White Blood Count 6.1 X10*3/uL (4.8-10.8)
[2024-07-09 12:04] LABS: Alanine Aminotransferase 14 U/L (0-40); Albumin Level 4.4 g/dL (3.5-5.0); Alkaline Phosphatase 73 U/L (39-117); Anion Gap 12 (12-20); Aspartate Amino Transferase 21 U/L (5-37); Bilirubin Total 0.5 mg/dL (0.0-1.0); Blood Urea Nitrogen 15 mg/dL (9-16); Calcium 9.3 mg/dL (8.4-10.2); Carbon Dioxide 24 mmol/L (22-29); Chloride 111 mmol/L (96-108); Cholesterol 178 mg/dL (<200); Estimated Glomerular Filt Rate > 60; Glucose Fasting 108 mg/dL (60-99); HDL Cholesterol 40 mg/dL (>40); LDL Cholesterol Calculated 109 mg/dL (<100); Sodium 143 mmol/L (135-145); Total Protein 7.1 g/dL (6.5-8.0); Triglycerides 145 mg/dL (<150)
[2024-07-09 12:25] LABS: TSH reflex Free T4 3.02 uIU/mL (0.32-4.0)
== END 2024-07-09 08:05 | disposition home or self-care (01) ==
LOC: HO.HMGCLDS 08:04
PROVIDERS: PCP Nurse Practitioner Family; Visit Provider Nurse Practitioner Family
DX: E11.9 Type 2 diabetes mellitus without complications (principal); I10 Essential (primary) hypertension; Z79.84 Long term (current) use of oral hypoglycemic drugs; Z79.899 Other long term (current) drug therapy
CPT/HCPCS: 36415; 80053; 80061; 81001; 81003; 83036; 84443; 85025; 96127; 99212

== ENCOUNTER 2024-08-13 06:15 | Day surgery (SDC) | payer MEDICARE, SELFPAY ==
[2024-08-11 08:55] VITALS: BMI 34.0
--- NOTE | 2024-08-12 08:27 | P.CONAN_ITS ---
Documented by User: Beba Sterling NP 08/12/24 08:28 HPI - Anesthesia Eval Consult details Narrative: 74yo M for Colonoscopy Afib (pradaxa) PMFSH Active Problems Active Problems: All Active Problems Abnormal protein electrophoresis (Acute) Abnormal prostate on physical examination (Acute) Anemia (Acute) Dyspnea on exertion (Acute) Upper respiratory tract infection (Acute) Screening for colon cancer (Acute) Screening PSA (prostate specific antigen) (Acute) Atrial fibrillation (Acute) Kidney stones (Acute) HTN (hypertension) (Acute) Diabetes (Acute) White coat syndrome with hypertension (Acute) Past Medical History Medical History Atrial fibrillation White coat syndrome with hypertension Obesity Adjustment disorder with depressed mood HTN (hypertension) Diabetes BPH (benign prostatic hyperplasia) Kidney stones Surgical History Surgical History H/O colonoscopy Hx of right knee surgery History of surgery of head Social History Social History Housing: Apartment Housing Other:: - 3 children Are you a primary healthcare facility administrator to a significant other at home: No Do you presently have visiting nurse or other home services: No Alcohol intake: never Patient Tobacco Use Status: Never used Tobacco e-Cigarette/Vaping Use: Never Used Second Hand Smoke Exposure: No Use of substances other than those prescribed or required for medical reasons: No Have you been hit, kicked, punched, or otherwise hurt by someone within the past year? If so, by whom?: No Advance Directives: No Advance Directives Information Provided: Yes Poor oral hygiene: No service: Yes Current occupational status: employed Current occupation: [employer] Current occupational exposures/hazards: No Cognitive needs: No Hearing needs: No Vision needs: No Meds Allergies Allergy/AdvReac Type Severity Reaction Status Date / Time No Known Allergies Allergy Verified 08/13/24 07:17 Home Medications ?Medication ?Instructions ?Recorded ?Confirmed ?Last Taken ?Type amiodarone 200 mg tablet 100 mg PO DAILY 11/05/23 08/13/24 Unknown History amlodipine 2.5 mg tablet 5 mg PO DAILY 11/05/23 08/13/24 Unknown History dabigatran etexilate 150 mg capsule 150 mg PO BID 08/11/24 08/13/24 Unknown History Exam Height,Weight and Vital Signs: Height 6 ft Weight 113.852 kg Assessment and Plan Assessment Anesthesia Assessment: Chart Reviewed Documented by User: Celina Andrews MD 08/13/24 08:43 HPI - Anesthesia Eval Consult details Narrative: 74yo M for Colonoscopy Afib (pradaxa). Last dose 08/09/24 PMFSH Active Problems Active Problems: All Active Problems Abnormal protein electrophoresis (Acute) Abnormal prostate on physical examination (Acute) Anemia (Acute) Dyspnea on exertion (Acute) Upper respiratory tract infection (Acute) Screening for colon cancer (Acute) Screening PSA (prostate specific antigen) (Acute) Atrial fibrillation (Acute)- paroxysmal. S/p ablation. Now SR Kidney stones (Acute) HTN (hypertension) (Acute) Diabetes (Acute) White coat syndrome with hypertension (Acute) Past Medical History Medical History Atrial fibrillation White coat syndrome with hypertension Obesity Adjustment disorder with depressed mood HTN (hypertension) Diabetes BPH (benign prostatic hyperplasia) Kidney stones Family History Family history of problems with anesthesia: No Surgical History Surgical History H/O colonoscopy Hx of right knee surgery History of surgery of head History of Problems with Anesthesia: No Social History Social History Housing: Apartment Housing Other:: - 3 children Are you a primary healthcare facility administrator to a significant other at home: No Do you presently have visiting nurse or other home services: No Alcohol intake: never Patient Tobacco Use Status: Never used Tobacco e-Cigarette/Vaping Use: Never Used Second Hand Smoke Exposure: No Use of substances other than those prescribed or required for medical reasons: No Have you been hit, kicked, punched, or otherwise hurt by someone within the past year? If so, by whom?: No Advance Directives: No Advance Directives Information Provided: Yes Poor oral hygiene: No service: Yes Current occupational status: employed Current occupation: [employer] Current occupational exposures/hazards: No Cognitive needs: No Hearing needs: No Vision needs: No Meds Allergies Allergy/AdvReac Type Severity Reaction Status Date / Time No Known Allergies Allergy Verified 08/13/24 07:17 Home Medications ?Medication ?Instructions ?Recorded ?Confirmed ?Last Taken ?Type amiodarone 200 mg tablet 100 mg PO DAILY 11/05/23 08/13/24 Unknown History amlodipine 2.5 mg tablet 5 mg PO DAILY 11/05/23 08/13/24 Unknown History dabigatran etexilate 150 mg capsule 150 mg PO BID 08/11/24 08/13/24 Unknown History Exam Height,Weight and Vital Signs: Height 6 ft Weight 113.852 kg Vital Signs Temp Pulse Resp BP Pulse Ox O2 Del Method 08/13/24 07:19 98.0 F 65 14 157/81 H 97 Room Air Pertinent Lab Results Pertinent Lab Results: Lab Results 08/13/24 Range/Units 07:39 POC Glucose 115 (60-115) mg/dL Airway Mallampati Class: II TM Dist: >3cm Neck ROM: Full Loose/Missing/Broken Teeth: Yes (No teeth top. Missing back teeth bottom. Denies broken or loose teeth) Heart: RRR Lungs: CTAB Assessment and Plan Assessment Anesthesia Assessment: Anesthesia Plan Discussed and Chart Reviewed Final Anesthetic Review Family History of Problems with Anesthesia: No History of Problems with Anesthesia: No NPO: Yes ASA Class: III Final Preanesthetic Review: No Changes in Pt Med Stat, Meds/Allgs Chart Reviewed, Consent Obtained/Reviewed and Anes Risks/Benef Reviewed Patient Risk: Intermediate Procedure Risk: Low Assessment/Block/Sedation in SS: Assess/Block/Sedation-SS Anesthetic Plan Anesthetic Plan: TIVA Disposition: Standard PACU
[2024-08-13 07:19] VITALS: BP 157/81; PULSE 65; RESP 14; TEMP 36.7; O2SAT 97; BMI 34.0
[2024-08-13] MEDS: Lactated Ringers 1,000 ML 100 ML IVCONT (07:23)
[2024-08-13 07:43] LABS: Glucose, Whole Blood 115 mg/dL (60-115)
--- NOTE | 2024-08-13 07:54 | MHC.SHP ---
Pre-Procedural Eval Section A - 24 Hr Update-Section A only Date of Service: 08/13/24 Section B - Complete if H&P > 30 days Chief Complaint: Encounter for screening for malignant neoplasm of Details of Present Illness: White coat syndrome with hypertension Obesity Adjustment disorder with depressed mood HTN (hypertension) Diabetes BPH (benign prostatic hyperplasia) Kidney stones Surgical History Hx of right knee surgery History of surgery of head Present Medications: see Short Stay Collaborative assessment Allergies: Allergies Allergy/AdvReac Type Severity Reaction Status Date / Time No Known Allergies Allergy Verified 08/13/24 07:17 Review of Systems Review of Systems Comment: Ten point ROS negative Exam Exam Comment: Gen appear: No acute distress HEENT: no icterus Chest: No overt resp distress Abd: soft, nontender, nondistended Psych: Stable affect, answering questions appropriately Neuro: A/Ox3 noted to move all extremities spontaneously Ext: no peripheral edema Plan Diagnosis/Plan: Unchanged I have reviewed the history and physical and performed a pertinent physical examination on my patient. No changes have occurred unless specified. Time Spent With Patient Time: Total time managing care of this patient today ____ minutes.
--- NOTE | 2024-08-13 09:01 | P.OPN-COLO_ITS ---
Colonoscopy Operative Note Operative Note Date of Service: 08/13/24 Narrative: Procedure: Colonoscopy Indication: Screening Endoscopist: Monica Arvizu MD Anesthesia Provider: Dr Celina Andrews Anesthesia type: MAC Instrument: Olympus [id number]-[id number] Consent: Indication, risks vs benefits, and alternatives were discussed with the patient who gave written informed consent to proceed. EKG, pulse, pulse oximetry and blood pressure were monitored throughout the procedure. Please see anesthesia flowsheet. Procedure: The patient was brought to the procedure room and placed in the left lateral decubitus position. IV medications were administered by the anesthesia provider in attendance. A digital rectal exam was performed which was abnormal due to finding of hemorrhoids. A distal attachment cap was affixed to the tip of the colonoscope which was then inserted through the anus and advanced through the colon to the cecum at 75 cm,and terminal ileum. Appendiceal orifice and ileocecal valve were identified. Mucosa was carefully examined under high definition white light as the instrument was slowly withdrawn in a retrograde panoramic fashion. Retroflexion was performed in ascending colon and rectum. The procedure was not difficult. There were no immediate obvious complications. The quality of the prep was BBPS: 3+2+3 = adequate Withdrawal time 10 minutes. Limitations: No limitations. Findings: Mucosa: Normal to cecum and terminal ileum. Protruding lesions: * Medium internal hemorrhoids without stigmata of recent bleeding. Excavated lesions: * Mild diverticulosis of sigmoid colon. Impression: 1. Normal colon mucosa 2. Diverticulosis 3. External and internal hemorrhoids Recommendations: - Repeat colonoscopy in 10 years if patient in good health. - Resume anticoagulation today.
[2024-08-13 09:08] VITALS: BP 99/50; PULSE 63; RESP 14; TEMP 36.4; O2SAT 96
== END 2024-08-13 09:42 | disposition home or self-care (01) ==
PROVIDERS: PCP Nurse Practitioner Family; Visit Provider Internal Medicine
PROC: 0DJD8ZZ Inspection of Lower Intestinal Tract, Via Natural or Artificial Opening Endoscopic (ICD-10-PCS; CPT 45378; principal; 2024-08-13 08:10)
DX: Z12.11 Encounter for screening for malignant neoplasm of colon (principal); K57.30 Diverticulosis of large intestine without perforation or abscess without bleeding; K64.8 Other hemorrhoids; K64.4 Residual hemorrhoidal skin tags; E11.9 Type 2 diabetes mellitus without complications; I10 Essential (primary) hypertension; Z79.899 Other long term (current) drug therapy; Z79.84 Long term (current) use of oral hypoglycemic drugs
CPT/HCPCS: G0121; 82947; J2003; J2704

== ENCOUNTER → 2024-08-13 06:15 | Outpatient (BNV) | payer MEDICARE, SELFPAY | PROVIDERS: PCP Nurse Practitioner Family; Visit Provider Internal Medicine | DX: Z12.11 Encounter for screening for malignant neoplasm of colon (principal); K57.30 Diverticulosis of large intestine without perforation or abscess without bleeding; K64.8 Other hemorrhoids | CPT/HCPCS: G0121 ==

== ENCOUNTER → 2024-08-18 10:17 | Outpatient (BNV) | payer MEDICARE, SELFPAY | PROVIDERS: PCP Nurse Practitioner Family; Referring Provider Nurse Practitioner Family; Visit Provider Internal Medicine | DX: D47.2 Monoclonal gammopathy (principal) | CPT/HCPCS: 99204; G2211 ==

== ENCOUNTER 2024-11-11 10:30 | Outpatient (REF) | payer MEDICARE, SELFPAY ==
[2024-11-11 13:26] LABS: Appearance Urine Cloudy; Glucose Urine UA Negative (Negative); PH 5.5 (5.0-9.0); Specific Gravity - Urine 1.025 (1.005-1.025); UMIC TRIGGER UACC YES
[2024-11-11 13:37] LABS: MANUAL DIFF FLAG NO
[2024-11-11 13:42] LABS: UACC Culture Trigger YES
[2024-11-11 13:46] LABS: Hematocrit 40.8 % (42.0-52.0); Hemoglobin 13.4 g/dl (14.0-18.0); Imm Gran Abs Auto 0.05 X10*3/uL (0.00-0.03); Imm Gran Pct Auto 0.5 % (0.0-0.4); Lymphocytes Absolute Auto 1.3 X10*3/uL (1.2-4.9); Mean Corpuscular HGB Conc 32.8 g/dl (31.0-36.0); Mean Corpuscular Hemoglobin 29.3 pg (27.0-33.0); Mean Corpuscular Volume 89.3 fL (80.0-98.0); NRBC Abs Auto 0.000 X10*3/uL (0.0-0.012); NRBC Pct Auto 0.0 /100WBC (0.0-0.2); Platelet Count 245 X10*3/uL (160-400); Red Blood Count 4.57 X10*6/uL (4.60-5.80); White Blood Count 9.3 X10*3/uL (4.8-10.8)
[2024-11-11 14:10] LABS: Alanine Aminotransferase 20 U/L (0-40); Albumin Level 4.7 g/dL (3.5-5.0); Alkaline Phosphatase 71 U/L (39-117); Anion Gap 13 (12-20); Aspartate Amino Transferase 29 U/L (5-37); Blood Urea Nitrogen 15 mg/dL (9-16); Calcium 10.0 mg/dL (8.4-10.2); Carbon Dioxide 26 mmol/L (22-29); Chloride 109 mmol/L (96-108); Cholesterol 187 mg/dL (<200); Estimated Glomerular Filt Rate 52; HDL Cholesterol 42 mg/dL (>40); Potassium 4.4 mmol/L (3.3-5.1); Sodium 144 mmol/L (135-145); Total Protein 7.3 g/dL (6.5-8.0); Triglycerides 208 mg/dL (<150)
[2024-11-11 14:11] LABS: Microalbum/Creatinine Ratio Ur 13.8 ug/mg cr (<30)
== END 2024-11-11 10:31 | disposition home or self-care (01) ==
LOC: HO.HMGCLDS 10:30
PROVIDERS: PCP Nurse Practitioner Family; Visit Provider Nurse Practitioner Family
DX: Z00.01 Encounter for general adult medical examination with abnormal findings (principal); Z23 Encounter for immunization; E11.9 Type 2 diabetes mellitus without complications; Z12.5 Encounter for screening for malignant neoplasm of prostate; Z13.31 Encounter for screening for depression; Z13.39 Encounter for screening examination for other mental health and behavioral disorders
CPT/HCPCS: 36415; 80053; 80061; 81001; 82043; 82570; 83036; 84153; 84443; 85025; 87086; 90471; 90677; 96127; 99397

== ENCOUNTER 2024-11-11 10:30 | Outpatient (AMB) | payer MEDICARE, SELFPAY ==
[2024-11-11 10:39] VITALS: BP 114/66; BMI 35.3
--- NOTE | 2024-11-11 10:39 | MHC.PC.OV ---
Vital Signs 11/11/24 10:39 Height 6 ft Weight 260 lb BMI 35.3 BP 114/66 Blood Pressure Location Rt brachial Position Sitting Intake Visit Reasons: Annual visit- see comments Infrastructure Director Required: No Accompanied by: Self / Same As Patient Allergies No Known Allergies Allergy (Verified 11/11/24 11:19) Medication List - Last Reconciled 11/11/24 by Gilmar Yates, [facility]- amiodarone 100 mg PO DAILY amlodipine 5 mg PO DAILY blood sugar diagnostic ([employer] Ultra Test strips) tid testing dabigatran etexilate 150 mg PO BID lisinopril 40 mg PO DAILY 90 days metformin 500 mg PO BID 90 days terazosin 10 mg PO BEDTIME 90 days Tobacco use date assessed: 11/11/24 Fall risk assessment: No Falls in past year Last assessed Fall Risk: 11/11/24 Dental Screening Dental Screen Date: 11/11/24 Did you have a dental visit in the last 12 months?: Yes Did you have a dental problem in the last 6 months where you did not have access to dental care?: No Was dental information given to patient?: Patient has dentist HPI Annual visit- see comments HPI Details History of Present Illness The patient is a 74-year-old male presenting with a physical exam and diabetes management. The patient has a history of diabetes mellitus, with a current hemoglobin A1c of 6.4, indicating good glycemic control. His diabetic eye exam is up to date, reflecting adherence to preventative care measures. He also has a history of atrial fibrillation and is under the care of a plasma table operator. Currently, he is not experiencing any atrial fibrillation episodes. Health Maintenance - Diabetic eye exam up to date -colon screen is up to date Social History Review of Systems - Cardiovascular: Denies chest pain, shortness of breath - Gastrointestinal: Denies abdominal pain, blood in stool, constipation, diarrhea - Psychiatric: Denies suicidal ideation, homicidal ideation - Genitourinary: Denies urinary symptoms -denies any neuropathy, polyuria, or polydipsia Physical Exam General: Cooperative, healthy appearing, comfortable, no acute distress and well developed Orientation: Patient oriented x3 Limitations: No limitations Head: Normal to inspection Ears: Hearing grossly normal bilaterally Nose: Normal external nose present Face and sinus: Normal facial exam Eyes: Appearance normal, both eyes and all related structures. Diabetic eye exam is up to date Neck: Normal visual inspection and Yes full ROM Respiratory: Normal respiratory effort and able to speak in complete sentences. Clear to auscultation bilaterally Cardiovascular: Regular rate and rhythm. Normal S1 and S2. GI: Normal to inspection. Soft to palpation and nontender Skin: No rashes or lesions noted Neuro: Patient oriented x3 Extremities: Normal to inspection. feet are intact, + sensation with use of monofilament Results - Labs: Hemoglobin A1c 6.4 Plan The patient will continue with his current diabetes management plan, as his hemoglobin A1c is well-controlled at 6.4. He is advised to maintain regular follow-ups with his plasma table operator for atrial fibrillation management, although he is currently not experiencing any episodes. Preventative care measures, including keeping his diabetic eye exam up to date, are emphasized. Discussion Notes I discussed with the patient the importance of maintaining his current diabetes management plan given his well-controlled hemoglobin A1c. We also reviewed the need for regular cardiology follow-ups for his atrial fibrillation, despite the absence of current episodes. I emphasized the importance of keeping his diabetic eye exam up to date as part of his preventative care. Patient Instructions - Continue current diabetes management plan. - Schedule regular follow-ups with your plasma table operator. - Ensure diabetic eye exams are up to date. [facility] Medical History Afib Atrial fibrillation White coat syndrome with hypertension Obesity Adjustment disorder with depressed mood HTN (hypertension) Diabetes BPH (benign prostatic hyperplasia) Kidney stones Surgical History H/O colonoscopy Hx of right knee surgery History of surgery of head Social History Household Members: None Housing: Apartment Housing Other:: - 3 children Are you a primary daytime caregiver to a significant other at home: No Do you presently have visiting nurse or other home services: No Alcohol intake: never Patient Tobacco Use Status: Never used Tobacco e-Cigarette/Vaping Use: Never Used Second Hand Smoke Exposure: No service: Yes ([employer]) Current occupational status: employed and retired Current occupation: [employer] Current occupational exposures/hazards: No Cognitive needs: No Hearing needs: No Vision needs: No Questionnaire PHQ-9 Over the last 2 weeks, how often have you been bothered by any of the following problems? 1. Little interest or pleasure in doing things: not at all 2. Feeling down, depressed, or hopeless: not at all 3. Trouble falling or staying asleep, or sleeping too much: not at all 4. Feeling tired or having little energy: not at all 5. Poor appetite or overeating: not at all 6. Feeling bad about yourself - or that you are a failure or have let yourself or your family down: not at all 7. Trouble concentrating on things, such as reading the newspaper or watching television: not at all 8. Moving or speaking so slowly that other people could have noticed. Or the opposite - being so fidgety or restless that you have been moving around a lot more than usual: not at all 9. Thoughts that you would be better off or of hurting yourself in some way: not at all Total score: 0 Depression Screening Interpretation: Negative Depression Screening Done: Yes 34580 - PHQ-9 Billing: Yes Source: Developed by Drs. Ernie Garcia, Mindi Barton, Richard Brooks and colleagues, with an educational kvng from [employer]. Thrive Questionnaire Date Thrive assessed: 07/05/24 I am a: Patient What is your living situation today?: I have a steady place to live Within the past 12 months, did the food you bought not last and you didn't have the money to get more?: Never true Within the past 12 months, did you worry whether your food would run out before you got money to buy more?: Never true Do you have trouble paying for medicines?: No Do you have trouble getting transportation to medical appointments?: No Do you have trouble paying your heating and electricity bill?: No Do you have trouble taking care of your child, family member or friend?: No Do you have trouble with day-to-day activities such as bathing, preparing meals, shopping, managing finances, etc.?: No Are you currently unemployed and looking for a job?: No Are you interested in more education?: No Please select the resources that you would like help with: None Currently or been in a relationship where the following occur: No concerns reported THRIVE Score: 0 KYLE-7 AMB Questionnaire KYLE-7 Date KYLE - 7 assessed: 11/11/24 Feeling nervous, anxious, or on edge: 0 = Not at all Not being able to stop or control worryin = Not at all Worrying too much about different things: 0 = Not at all Trouble relaxin = Not at all Being so restless that it is hard to sit still: 0 = Not at all Becoming easily annoyed or irritable: 0 = Not at all Feeling afraid as if something awful might happen: 0 = Not at all Total KYLE-7 score (0-4 normal; 5-9 mild; 10-14 moderate; 15-21 severe): 0 Source: Developed by Drs. Ernie Garcia, Mindi Barton, Richard Brooks and colleagues, with an educational kvng from [employer]. KYLE-7 Assessment Billing KYLE-7 Assessment Tool: KYLE-7 Assessment 70610 Physical exam (Primary Care) Vital Signs: Last Vital Signs BP 114/66 11/11/24 10:39 BMI result Body Mass Index 35.3 Tobacco/Smoking Status: Tobacco use Status Tobacco use date assessed 11/11/24 11/11/24 10:45 Patient Tobacco Use Status Never used Tobacco 11/11/24 10:45 e-Cigarette/Vaping Use Never Used 11/11/24 10:45 PHQ-9: PHQ-9 Score PHQ-9: Total score 0 11/11/24 10:55 Depression Screening Interpretation: Negative Thrive Assessment: Date of Thrive Assessment Date Thrive assessed 07/05/24 11/11/24 10:45 Currently or been in a relationship where the following occur: No concerns reported Results AMB Hemoglobin A1c AMB Hemoglobin A1c 6.4 % Last Edit by Edna Baig MA on 11/11/24 10:53 Immunizations pneumoc 20-wilian conj-dip cr(PF) 0.5 mL IM syringe Performing Provider: SHELDON Arce Performing Location: [facility] Administered by: Fili Chu CMA on 11/11/24 11:28 Dose Route Admin Location Dispensed Lot Number Expiration Date [facility] Life Coach 0.5 mL IM Right Deltoid 0.5 mL [id number] 10/25/25 3537-9681-93 [employer] Total Dispensed Waste 0.5 mL 0 % VIS Given Date VIS Provided VIS Publication Date 11/11/24 Single Vaccine 24 Eligibility Eligibility Date Funding Source Not VF Eligible 11/11/24 Private Results Reviewed Results Reviewed: Laboratory Last Values Hgb A1c (Clinic) 6.4 % (4.0-6.0) H 11/11/24 10:38 Coding Level of Care Code Est Pt Level 3 (02921) Est Pt Prev Care >65y(27107) Diagnoses Encounter for routine adult physical exam with abnormal findings Z00.01 Diabetes E11.9 Screening PSA (prostate specific antigen) Z12.5 Additional Codes KYLE-7 Assessment Billing - KYLE-7 Assessment Tool: KYLE-7 Assessment 53411 ([id number]) PHQ-9 - 73354 - PHQ-9 Billing: Yes ([id number]) Assessment & Plan Assessment & Plan (1) Encounter for routine adult physical exam with abnormal findings: Code(s): Z00.01 - Encounter for general adult medical examination with abnormal findings Category: Medical (2) Diabetes: Code(s): E11.9 - Type 2 diabetes mellitus without complications Category: Medical (3) Screening PSA (prostate specific antigen): Code(s): Z12.5 - Encounter for screening for malignant neoplasm of prostate Category: Medical Plan . Orders: Orders Complete Blood Count Auto Diff Today E11.9 - Type 2 diabetes mellitus without complications, Z00.01 - Encounter for general adult medical examination with abnormal findings UA CC w/rflx Micro + Cult Today E11.9 - Type 2 diabetes mellitus without complications, Z00.01 - Encounter for general adult medical examination with abnormal findings Lipid Panel Today E11.9 - Type 2 diabetes mellitus without complications, Z00.01 - Encounter for general adult medical examination with abnormal findings Prostate Specific Antigen Scr Today Z12.5 - Encounter for screening for malignant neoplasm of prostate Pneumococcal 20 Immunization Today Z23 - Encounter for immunization AMB Hemoglobin A1c Today Z13.9 - Encounter for screening, unspecified Comprehensive [place]. Panel Fast Today E11.9 - Type 2 diabetes mellitus without complications, Z00.01 - Encounter for general adult medical examination with abnormal findings TSH reflex Free T4 Today E11.9 - Type 2 diabetes mellitus without complications, Z00.01 - Encounter for general adult medical examination with abnormal findings Microalbumin, Random (w Creat) Today E11.9 - Type 2 diabetes mellitus without complications
--- OUTSIDE RECORDS SUMMARY | 2024-11-11 11:10 | XMS_ITS | Clinical Summary ---
Author Organization Patient Business Ser [facility] Address [address] [place] [address] Care Team Providers Care Fur Storage Clerk Name Role Phone Ariela Amaya MD Primary Care Provider [phone] Allergies No known active allergies Medications metFORMIN (GLUCOPHAGE) 500 mg tablet Take 1 tablet (500 mg total) by mouth 2 (two) times a day with meals. 2 Active lisinopril (PRINIVIL,ZESTR IL) 40 mg tablet Take 1 tablet (40 mg total) by mouth 1 (one) time each day. 1 Active terazosin (HYTRIN) 10 mg capsule Take 1 capsule by mouth at bedtime. 1 Active blood sugar diagnostic (ONE TOUCH TEST [facility]) 1 Strip by Does not apply route as needed (blood sugar). Use to check blood sugar as needed daily. E.11.9 1 Active glucose blood test strip Use to check blood sugar once daily 0 Active Autolet lancing device Use device as needed to check blood sugar 9 Active miscellaneous medical supply [facility] Blood Glucose Calibration (OT ULTRA/FASTTK CNTRL SOLN) Solution 9 Active Active Problems Problem Noted Date Diagnosed Date Adjustment disorder with depressed mood 02/01/20 20 Type 2 diabetes mellitus wit hout complication, without long-term current use of insulin ([facility] V24, [facility] V28) 09/03/2018 Obese 06/05/2018 Nephrolithiasis 03/29/2017 BPH (benign prostatic hyperplasia) 08/18/2009 HTN (hypertension) 08/18/2009 Encounters Date Type Department Care Team Description 09/18/2024 Telephone Adult Medicine [address] [id number] Jana Mcgee MA from Last 3 Months Immunizations Name Administration Dates Next Due Influenza Quadravalent, MDCK , 0.5ml, with preservative (Flucelvax) 6mo and older 01/06/2017 Influenza trivalent, 0.5mL ( Fluzone High-dose) 65yo and older 12/28/2020,01/05/2019,12/30/2017 Influenza trivalent, 0.5mL, preservative free (Fluarix; FluLaval; Fluzone) ages 6mo and older (Afluria) 3 years and older 12/17/2019 Influenza trivalent, with preservative (Fluzone; Afluria) 6mo and older 12/23/2015,01/04/2015,01/25/2013,2010,01/18/2010 Tdap Tetanus diptheria acell ular pertussis (Boostrix; Adacel) 7yo and older 12/17/2019,07/28/2009 Surgical History Surgery Date Site/Laterality Comments KNEE ARTHROSCOPY W/ DEBRIDEMENT PROCEDURE: [place] ARTHRS KNEE DEBRIDEMENT/SHAVING ARTCLR CRTLG; COMMENT: right SINUS SURGERY PROCEDURE: [place] UNLISTED PROCEDURE ACCESSORY SINUSES; COMMENT: 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 Medical History Medical History Date Comments HTN (hypertension) DX:HTN (hyper tension) BPH (benign prostatic hyperplasia) DX:BPH (benign prostatic hyperplasia) Prediabetes DX:Prediabetes Type 2 diabetes mellitus wit hout complication, without long-term current use of insulin ([facility] V24, [facility] V28) 09/03/2018 DX:Type 2 diabetes mellitus without complication, without long-term current use of insulin ([facility]) Family History Relation Name Status Comments Daughter 1 Alive Daughter 2 Alive Father cancer, not mitch e what type Mother Alive dementia Son Alive depression Social History Tobacco Use Types Packs/Day Years Used Date Smoking Tobacco: Never Smokeless Tobacco: Never Alcohol Use Standard Drinks/Week Comments No 0 (1 standard drink = 0.6 oz pur e alcohol) Sex and Gender Information Value Date Recorded Sex Assigned at Not on file Legal Sex Male 8:15 PM EDT Gender Identity Not on file Sexual Orientation Not on file Obstetrics History Plan of Treatment Health Maintenance Due Date Last Done Comments Diabetes: Annual Foot Exam 01/13/1962 Diabetes: Annual Retina Eye Exam 01/13/1962 Pneumococcal Vaccine: 50+ Years (1 of 2 - PCV) 01/13/1971 Zoster Vaccines (1 of 2) 01/13/2002 Diabetes: Annual GFR (Glomerular Filtration Rate) 02/20/2022 02/20/2021 COVID-19 Vaccine ( season) 2023 08/05/2020, 07/15/2020 Abdominal Aortic Aneurysm (AAA) Screen 03/25/2024 Diabetes: Annual Urine Albumin-Creatinine Ratio (uACR) 03/25/2024 05/24/2020 Diabetes: Blood Sugar Control Test (HGBA1C) 03/25/2024 02/20/2021 Falls Risk Assessment 03/25/2024 Hypertension/CHF/CAD Annual BMP Blood Test 03/25/2024 02/20/2021 Social Influencers of Health Screening 03/25/2024 Depression Screening 04/08/2024 Influenza Vaccine (#1) 2024 , 12/17/2019, 01/05/2019, Additional history exists Cholesterol Screening (Lipid Panel) 02/20/2026 02/20/2021 RSV Immunization Adult Patients (1 - 1-dose 75+ series) 01/13/2027 Colorectal Cancer Screening: Colonoscopy 08/03/2027 08/02/2017 DTaP,Tdap,and Td Vaccines (3 - Td or Tdap) 12/16/2029 12/17/2019, 07/28/2009 Hepatitis C Screening Completed 03/27/2013 HIB Vaccines Aged Out No longer eligi ble based on patient's age to complete this topic HPV Vaccines Aged Out No longer eligi ble based on patient's age to complete this topic Hepatitis A Vaccines Aged Out No long er eligible based on patient's age to complete this topic Hepatitis B Vaccines Aged Out No long er eligible based on patient's age to complete this topic IPV Vaccines Aged Out No longer eligi ble based on patient's age to complete this topic MMR Vaccines Aged Out No longer eligi ble based on patient's age to complete this topic Meningococcal ACWY Vaccine Aged Out N o longer eligible based on patient's age to complete this topic Meningococcal B Vaccine Aged Out No l onger eligible based on patient's age to complete this topic RSV Immunization Patients Under 20 months Aged Out No longer eligible based on patient's age to complete this topic Varicella Vaccines Aged Out No longer eligible based on patient's age to complete this topic Procedures Procedure Name Priority Date/Time Associated Diagnosis Comments ANNUAL BMP BLOOD TEST Routine 02/20/2021 HEMOGLOBIN A1C Routine 02/20/2021 LIPID PANEL Routine 02/20/2021 URINE ALBUMIN CREATININE RATIO Routine 05/24/2020 COLONOSCOPY Routine 08/02/2017 HEPATITIS C SCREENING Routine 03/27/2013 from Last 3 Months or Most Recently Relevant to Health Maintenance Results * Annual BMP Blood Test (02/20/2021) Pathologist [facility] Annual BMP Blood Test Abstracted Result [facility] Provider HEALTH MAINTENANCE Final Result * Hemoglobin A1c (02/20/2021) [facility] Hemoglobin A1C 5.7 <=6.5 % Blood Venous blood specimen / Unknown Result [facility] Provider LAB BLOOD ORDERABLES Jael l Result * Lipid panel (02/20/2021) [facility] LDL/HDL Ratio 4 0 - 4 Triglycerides 146 0 - 150 mg/dL Cholesterol 171 0 - 200 mg/dL HDL 43 >=40 mg/dL LDL Cholesterol 99 0 - 100 mg/dL Blood Venous blood specimen / Unknown Result [facility] Provider LAB BLOOD ORDERABLES Jael l Result * Urine Albumin Creatinine Ratio (05/24/2020) Pathologist [facility] Urine Albumin Creatinine Ratio Abstracted Result [facility] Provider HEALTH MAINTENANCE Final Result * Colonoscopy (08/02/2017) Colonoscopy Negative, Abstracted Anatomical Region Laterality Modality Other us Historical Provider HEALTH MAINTENANCE Final Result * Hepatitis C Screening (03/27/2013) Pathologist [facility] Hepatitis C Screening Abstracted us Historical Provider HEALTH MAINTENANCE Final Result from Last 3 Months or Most Recently Relevant to Health Maintenance Care Teams Fur Storage Clerk Relationship Specialty Start Date End Date Ariela Amaya MD [address] [place] [address] PCP - General Internal Medicine 01/30/21
== END 2024-11-11 11:31 | disposition home or self-care (01) ==
LOC: HO.HMCC 10:30
PROVIDERS: PCP Nurse Practitioner Family; Visit Provider Nurse Practitioner Family
DX: Z00.01 Encounter for general adult medical examination with abnormal findings (principal); E11.9 Type 2 diabetes mellitus without complications; Z23 Encounter for immunization; Z13.9 Encounter for screening, unspecified; Z12.5 Encounter for screening for malignant neoplasm of prostate

== ENCOUNTER 2025-01-12 10:45 | Outpatient (REF) | payer MEDICARE, SELFPAY ==
--- OUTSIDE RECORDS SUMMARY | 2025-01-12 13:08 | XMS_ITS | Clinical Summary ---
Author Organization Patient Business Ser [facility] Address [address] [place] [address] Care Team Prov[address] Care [address] Light Lamp Cleaner Name Role Phone Ariela Amaya MD Primary Care Provider [phone] Allergies No known active allergies Medications metFORMIN [...] Active blood sugar diagnostic (ONE TOUCH TEST [facility]) 1 Strip by Does not apply route as needed (blood sugar). Use to check blood sugar as needed daily. E.11.9 1 Active glucose blood test strip Use to check blood sugar once daily 0 Active Autolet lancing device Use device as needed to check blood sugar 9 Active miscellaneous medical supply [facility] Blood Glucose Calibration (OT ULTRA/FASTTK CNTRL SOLN) Solution 9 Active Active Problems Problem Noted Date Diagnosed Date Adjustment disorder with depressed mood 02/01/20 20 Type 2 diabetes mellitus wit hout complication, without long-term current use of insulin ([facility] V24, [facility] V28) 09/03/2018 Obese 06/05/2018 Nephrolithiasis 03/29/2017 BPH (benign prostatic hyperplasia) 08/18/2009 HTN (hypertension) 08/18/2009 Immunizations Immunization Administration Dates Next Due Influenza Quadravalent, MDCK [...] Site/Laterality Comments KNEE ARTHROSCOPY W/ DEBRIDEMENT PROCEDURE: [place] ARTHRS KNEE DEBRIDEMENT/SHAVING ARTCLR CRTLG; COMMENT: right SINUS SURGERY PROCEDURE: [place] UNLISTED PROCEDURE ACCESSORY SINUSES; COMMENT: 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 Medical History Medical History Date Comments HTN (hypertension) DX:HTN (hyper tension) BPH (benign prostatic hyperplasia) DX:BPH (benign prostatic hyperplasia) Prediabetes DX:Prediabetes Type 2 diabetes mellitus wit hout complication, without long-term current use of insulin ([facility] V24, [facility] V28) 09/03/2018 DX:Type 2 diabetes mellitus without complication, without long-term current use of insulin ([facility]) Family History Relation Name Status Comments Daughter [...] Annual GFR (Glomerular Filtration Rate) 02/20/2022 02/20/2021 Abdominal Aortic Aneurysm (AAA) Screen 03/25/2024 Diabetes: Annual Urine Albumin-Creatinine Ratio (uACR) 03/25/2024 05/24/2020 Diabetes: Blood Sugar Control Test (HGBA1C) 03/25/2024 02/20/2021 Falls Risk Assessment 03/25/2024 Hypertension/CHF/CAD Annual BMP Blood Test 03/25/2024 02/20/2021 Social Influencers of Health Screening 03/25/2024 Depression Screening 04/08/2024 COVID-19 Vaccine ( season) 2024 08/05/2020, 07/15/2020 Influenza Vaccine (#1) 2024 , 12/17/2019, 01/05/2019, [...] * Annual BMP Blood Test (02/20/2021) Pathologist [facility] Annual BMP Blood Test Abstracted Result [facility] Provider HEALTH MAINTENANCE Final Result * Hemoglobin A1c (02/20/2021) [facility] Hemoglobin A1C 5.7 <=6.5 % Blood Venous blood specimen / Unknown Result [facility] Provider LAB BLOOD ORDERABLES Ajel l Result * Lipid panel (02/20/2021) [facility] LDL/HDL Ratio 4 0 - 4 Triglycerides 146 0 - 150 mg/dL Cholesterol 171 0 - 200 mg/dL HDL 43 >=40 mg/dL LDL Cholesterol 99 0 - 100 mg/dL Blood Venous blood specimen / Unknown Result [facility] Provider LAB BLOOD ORDERABLES Jael l Result * Urine Albumin Creatinine Ratio (05/24/2020) Pathologist [facility] Urine Albumin Creatinine Ratio Abstracted Result [facility] Provider HEALTH MAINTENANCE Final Result * Colonoscopy (08/02/2017) [facility] Colonoscopy Negative, Abstracted Anatomical Region Laterality Modality Other [facility] Provider HEALTH MAINTENANCE Final Result * Hepatitis C Screening (03/27/2013) Hepatitis C Screening Abstracted us Historical Provider HEALTH MAINTENANCE Final Result from Last 3 Months or Most Recently Relevant to Health Maintenance Care Teams Street Light Lamp Cleaner Relationship Specialty Start Date End Date Ariela Amaya MD [address] [place] [address] PCP - General Internal Medicine 01/30/21
[2025-01-12 13:21] LABS: Appearance Urine Clear; Glucose Urine UA Negative (Negative); PH 6.0 (5.0-9.0); Specific Gravity - Urine 1.015 (1.005-1.025); UMIC TRIGGER UACC YES
[2025-01-12 13:28] LABS: UACC Culture Trigger YES
[2025-01-12 14:11] LABS: Alanine Aminotransferase 15 U/L (0-40); Albumin Level 4.3 g/dL (3.5-5.0); Alkaline Phosphatase 74 U/L (39-117); Anion Gap 12 (12-20); Aspartate Amino Transferase 22 U/L (5-37); Blood Urea Nitrogen 17 mg/dL (9-16); Calcium 9.1 mg/dL (8.4-10.2); Carbon Dioxide 28 mmol/L (22-29); Chloride 106 mmol/L (96-108); Cholesterol 120 mg/dL (<200); Estimated Glomerular Filt Rate 59; HDL Cholesterol 34 mg/dL (>40); Potassium 4.3 mmol/L (3.3-5.1); Sodium 142 mmol/L (135-145); Total Protein 6.8 g/dL (6.5-8.0); Triglycerides 123 mg/dL (<150)
== END 2025-01-12 10:46 | disposition home or self-care (01) ==
LOC: HO.HMGCLDS 10:45
PROVIDERS: PCP Nurse Practitioner Family; Visit Provider Nurse Practitioner Family
DX: Z12.5 Encounter for screening for malignant neoplasm of prostate (principal); E11.9 Type 2 diabetes mellitus without complications; R80.9 Proteinuria, unspecified
CPT/HCPCS: 36415; 80053; 80061; 81001; 84153; 87086

== ENCOUNTER 2025-01-14 08:22 | Outpatient (REF) | payer MEDICARE, SELFPAY ==
[2025-01-14 14:15] LABS: Appearance Urine Clear; Glucose Urine UA Negative (Negative); PH 6.0 (5.0-9.0); Specific Gravity - Urine 1.015 (1.005-1.025); UMIC TRIGGER UACC YES
== END 2025-01-14 08:23 | disposition home or self-care (01) ==
LOC: HO.LNP 08:22
PROVIDERS: PCP Nurse Practitioner Family; Visit Provider Nurse Practitioner Family
DX: R80.9 Proteinuria, unspecified (principal); R39.9 Unspecified symptoms and signs involving the genitourinary system; Z13.89 Encounter for screening for other disorder
CPT/HCPCS: 81001; 81003; 99212

== ENCOUNTER 2025-01-14 08:22 | Outpatient (AMB) | payer MEDICARE, SELFPAY ==
--- NOTE | 2025-01-14 08:26 | MHC.OFFWIV ---
Intake Vital Signs 01/14/25 08:27 Height 6 ft Weight 258 lb BMI 35.0 BP 148/90 H Blood Pressure Location Lt brachial Position Sitting Respiration 16 Pulse 75 Pulse Source Pulse Oximeter Temp 98.2 F Temp Source Oral Pulse Oximetry (%) 100 Oxygen Delivery Method Room Air Intake Visit Reasons: EP Blood in urine Patient Tobacco Use Status: Never used Tobacco Allergies No Known Allergies Allergy (Verified 11/11/24 11:19) HPI HPI Comments History of Present Illness Details 75 y/o Male patient who presents to the walk in clinic with c/o Supra-pubic abdominal cramping/pressure for few days now. He also reports urinary urgency with difficult urination. Reports taking awhile to initiate urination - Usually small amount comes out - urinary frequency. He does have h/o BPH and currently takes Terazosin 10 mg (for many years now) - he used to see Dr. Gonzalez @ [facility] last seen 2018. He currently does not see any urology. Reports that the pain is intermittent and radiating to his Left Lower back (? Left Kidney). He does have h/o Left sided Kidney stones. He has been taking Advil with good relief. Denies fevers, chills, nausea or vomiting. [facility] Medical History (Updated 01/14/25 @ 10:22 by Kari Galo NP) Lower urinary tract symptoms Afib Atrial fibrillation White coat syndrome with hypertension Obesity Adjustment disorder with depressed mood HTN (hypertension) Diabetes BPH (benign prostatic hyperplasia) Kidney stones Surgical History H/O colonoscopy Hx of right knee surgery History of surgery of head Social History Household Members: None Housing: Apartment Housing Other:: - 3 children Are you a primary child care center administrator to a significant other at home: No Do you presently have visiting nurse or other home services: No Alcohol intake: never Patient Tobacco Use Status: Never used Tobacco e-Cigarette/Vaping Use: Never Used Second Hand Smoke Exposure: No service: Yes ([employer]) Current occupational status: employed and retired Current occupation: [employer] Current occupational exposures/hazards: No Cognitive needs: No Hearing needs: No Vision needs: No Review of Systems Const All systems reviewed & are unremarkable except as noted in HPI and below Physical Exam Vital Signs: Last Vital Signs Temp 98.2 F 01/14/25 08:27 Pulse 75 01/14/25 08:27 Resp 16 01/14/25 08:27 BP 148/90 H 01/14/25 08:27 Pulse Ox 100 01/14/25 08:27 Oxygen Delivery Method Room Air 01/14/25 08:27 BMI result Body Mass Index 35.0 Const General: no acute distress Nutritional Appearance: obese Orientation/consciousness: patient oriented x3 Resp Effort & Inspection: normal respiratory effort Cardio Rate: regular rate GI Inspection: Yes obesity General: Yes no CVA tenderness Back/Spine/Pelvis Back: no CVA tenderness Back/spine/pelvis image:  1. Mild Tenderness with deep palpation. Neuro General: patient oriented x3, gait normal and moves all extremities Psych Speech and movement: Normal speech and movement present Results AMB Urinalysis, Automated UA Leukoctes 0 Elpidio/uL Last Edit by Fili Chu CMA on 01/14/25 09:30 UA Nitrite Negative Last Edit by Fili Chu CMA on 01/14/25 09:30 UA Urobilinogen 0.2 mg/dL Last Edit by Fili Chu CMA on 01/14/25 09:30 UA Protein 0 mg/dL Last Edit by Fili Chu CMA on 01/14/25 09:30 UA pH 6.0 Last Edit by Fili Chu CMA on 01/14/25 09:30 UA Blood 0 Alex/uL Last Edit by Fili Chu CMA on 01/14/25 09:30 UA Specific [place] 1.015 Last Edit by Fili Chu CMA on 01/14/25 09:30 UA Ketone Negative Last Edit by Fili Chu CMA on 01/14/25 09:30 UA Bilirubin 0 mg/dL Last Edit by Fili Chu CMA on 01/14/25 09:30 UA Glucose 0 mg/dL Last Edit by Fili Chu CMA on 01/14/25 09:30 Results Reviewed Results Reviewed: Laboratory Last Values Urine pH (Auto) 6.0 01/14/25 09:28 Specific [place] (Auto) 1.015 01/14/25 09:28 Urine Protein (Auto) 0 mg/dL 01/14/25 09:28 Glucose (UA)(Auto) 0 mg/dL 01/14/25 09:28 Urine Ketones (Auto) Negative 01/14/25 09:28 Urine Blood (Auto) 0 Alex/uL 01/14/25 09:28 Urine Nitrite (Auto) Negative 01/14/25 09:28 Urine Bilirubin (Auto) 0 mg/dL 01/14/25 09:28 Urine Urobilinogen (Auto) 0.2 mg/dL 01/14/25 09:28 Leukocyte Esterase (Auto) 0 Elpidio/uL 01/14/25 09:28 Assessment & Plan Assessment & Plan (1) Lower urinary tract symptoms: Code(s): R39.9 - Unspecified symptoms and signs involving the genitourinary system Plan: Patient had 3 negative urine culture this Year. Urinalysis today Negative - will hold sending U/A today since last C&S (01/12) was negative. He is Symptomatic for BPH and possibly Left renal calculi with poss obstruction. Will place referral to Urology today. F/U with PCP for possible imaging if indicated. Orders: Orders UA CC w/rflx Micro + Cult 01/12/25 SHIRA Arce- R80.9 - Proteinuria, unspecified AMB Urinalysis Automated Today Kari Galo NP Z13.9 - Encounter for screening, unspecified Referrals Urology Referral Kari Galo NP R39.9 - Unspecified symptoms and signs involving the genitourinary system Coding Level of Care Code Est Pt Level 4 (09018) Diagnoses Lower urinary tract symptoms R39.9 Time Spent (min) 20
[2025-01-14 08:27] VITALS: BP 148/90; PULSE 75; RESP 16; TEMP 36.8; O2SAT 100; BMI 35.0
== END 2025-01-14 09:39 | disposition home or self-care (01) ==
PROVIDERS: PCP Nurse Practitioner Family; Visit Provider Nurse Practitioner Family
DX: R39.9 Unspecified symptoms and signs involving the genitourinary system (principal); Z13.9 Encounter for screening, unspecified

== ENCOUNTER 2025-01-22 09:17 | Outpatient (REF) | payer MEDICARE, SELFPAY ==
--- NOTE | ~2025-01-22 | US_ITS ---
CLINICAL HISTORY: R39.852 - Costovertebral (angle) tenderness, left side US Renal Comparison: None provided Findings: Right kidney normal size and echotexture, 11.5 cm length. Left kidney normal size and echotexture, 12.9 cm length. Moderate collecting system dilatation of left kidney. Normal color Doppler. Urinary bladder is unremarkable. Prevoid volume 152 mL. Postvoid volume 5.6 mL. Bilateral ureteral jets are visualized. IMPRESSION: 1. Moderate left hydronephrosis This document has been electronically signed by: Haroon Rodas MD on 01/24/2025 09:44:43
--- OUTSIDE RECORDS SUMMARY | 2025-01-22 10:15 | XMS_ITS | Clinical Summary ---
Author Organization Patient Business Ser [facility] Address [address] [place] [address] Care Team Providers Care Coordinator Skill Training Program Name Role Phone Ariela Amaya MD Primary Care Provider [phone] Allergies No known active allergies Medications metFORMIN [...] Active blood sugar diagnostic (ONE TOUCH TEST [facility] [place]) 1 Strip by Does not apply route as needed (blood sugar). Use to check blood sugar as needed daily. E.11.9 1 Active glucose blood test strip Use to check blood sugar once daily 0 Active Autolet lancing device Use device as needed to check blood sugar 9 Active miscellaneous medical supply [facility] Blood Glucose Calibration (OT ULTRA/FASTTK CNTRL SOLN) Solution 9 Active Active Problems Problem Noted Date Diagnosed Date Adjustment disorder with depressed mood 02/01/20 20 Type 2 diabetes mellitus wit hout complication, without long-term current use of insulin ([facility] V24, [facility] V28) 09/03/2018 Obese 06/05/2018 Nephrolithiasis 03/29/2017 BPH [...] Site/Laterality Comments KNEE ARTHROSCOPY W/ DEBRIDEMENT PROCEDURE: [place] ARTHRS KNEE DEBRIDEMENT/SHAVING ARTCLR CRTLG; COMMENT: right SINUS SURGERY PROCEDURE: [place] UNLISTED PROCEDURE ACCESSORY SINUSES; COMMENT: 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 Medical History Medical History Date Comments HTN (hypertension) DX:HTN (hyper tension) BPH (benign prostatic hyperplasia) DX:BPH (benign prostatic hyperplasia) Prediabetes DX:Prediabetes Type 2 diabetes mellitus wit hout complication, without long-term current use of insulin ([facility] V24, [facility] V28) 09/03/2018 DX:Type 2 diabetes mellitus without complication, without long-term current use of insulin ([facility]) Family History Relation Name Status Comments Daughter [...] * Annual BMP Blood Test (02/20/2021) Pathologist [facility] Annual BMP Blood Test Abstracted Result [facility] Provider HEALTH MAINTENANCE Final Result * Hemoglobin A1c (02/20/2021) [facility] Hemoglobin A1C 5.7 <=6.5 % Blood Venous blood specimen / Unknown Result [facility] Provider LAB BLOOD ORDERABLES Jael l Result * Lipid panel (02/20/2021) [facility] LDL/HDL Ratio 4 0 - 4 Triglycerides 146 0 - 150 mg/dL Cholesterol 171 0 - 200 mg/dL HDL 43 >=40 mg/dL LDL Cholesterol 99 0 - 100 mg/dL Blood Venous blood specimen / Unknown Result [facility] Provider LAB BLOOD ORDERABLES Jael l Result * Urine Albumin Creatinine Ratio (05/24/2020) Pathologist [facility] Urine Albumin Creatinine Ratio Abstracted Result [facility] Provider HEALTH MAINTENANCE Final Result * Colonoscopy (08/02/2017) [facility] Colonoscopy Negative, Abstracted Anatomical Region Laterality Modality Other [facility] Provider HEALTH MAINTENANCE Final Result * Hepatitis C Screening (03/27/2013) Hepatitis C Screening Abstracted us Historical Provider HEALTH MAINTENANCE Final Result from Last 3 Months or Most Recently Relevant to Health Maintenance Care Teams Coordinator Skill Training Program Relationship Specialty Start Date End Date Ariela Amaya MD [address] [place] [address] PCP - General Internal Medicine 01/30/21
[2025-01-22 13:15] LABS: Appearance Urine Clear; Glucose Urine UA Negative (Negative); PH 6.5 (5.0-9.0); Specific Gravity - Urine 1.010 (1.005-1.025)
== END 2025-01-22 09:18 | disposition home or self-care (01) ==
LOC: HO.HMGCX 09:17
PROVIDERS: PCP Nurse Practitioner Family; Visit Provider Nurse Practitioner Family
DX: R39.852 Costovertebral (angle) tenderness, left side (principal); N20.0 Calculus of kidney; R80.9 Proteinuria, unspecified
CPT/HCPCS: 76770; 81003

== ENCOUNTER → 2025-01-22 09:22 | Outpatient (BNV) | payer MEDICARE, SELFPAY | PROVIDERS: PCP Nurse Practitioner Family; Visit Provider Specialist | DX: N13.30 Unspecified hydronephrosis (principal) | CPT/HCPCS: 76770 ==

== ENCOUNTER 2025-01-27 12:55 | Outpatient (AMB) | payer MEDICARE, SELFPAY ==
--- NOTE | 2025-01-27 13:09 | A.OFFVIS_ITS ---
Intake Visit Reasons: BPH/history of kidney stones/urinary urgency Intake Note: patient presents today for: new pt BPH/ hx of k.stones/ urinary urgency urology medications: terazosin blood thinners: none US done: 01/24/25 labs done 01/12/25: PSA 0.75 [employer] Programmer Required: No Accompanied by: Self / Same As Patient Allergies No Known Allergies Allergy (Verified 01/27/25 13:11) HPI Comments Details: Gilmar is a pleasant male. He is a patient of Dr. Dunn. He seen for the following urologic conditions - renal stone Prior episodes of pain earlier this month Ultrasound performed which shows left hydro nephrosis but no definitive stone Based on history it appears that stone has passed Is on terazosin Plan repeat ultrasound in three-month for resolution Should pain reoccur he will call office [facility] Medical History (Updated 01/14/25 @ 13:01 by SHELDON Arce) Lower urinary tract symptoms Afib Atrial fibrillation White coat syndrome with hypertension Obesity Adjustment disorder with depressed mood HTN (hypertension) Diabetes BPH (benign prostatic hyperplasia) Kidney stones Surgical History H/O colonoscopy Hx of right knee surgery History of surgery of head Social History Household Members: None Housing: Apartment Housing Other:: - 3 children Are you a primary respiratory care instructor to a significant other at home: No Do you presently have visiting nurse or other home services: No Alcohol intake: never Patient Tobacco Use Status: Never used Tobacco e-Cigarette/Vaping Use: Never Used Second Hand Smoke Exposure: No service: Yes ([employer]) Current occupational status: employed and retired Current occupation: [employer] Current occupational exposures/hazards: No Cognitive needs: No Hearing needs: No Vision needs: No Review of Systems Const Denies chills and Denies fever(s) Card Reports no additional complaints and Denies syncope Resp Denies cough GI Denies abdominal pain and Denies heartburn Reports as per HPI and Denies change in libido Neuro Denies syncope Psych Denies change in libido Endo Denies change in libido Physical Exam Const General: cooperative, healthy appearing, comfortable and no acute distress Orientation/consciousness: patient oriented x3 HEENT Face and sinus: Yes normal facial exam Mouth: moist mucous membranes Neck Neck: Yes normal visual inspection, Yes full ROM and Yes trachea midline Chest Chest palpation & inspection: normal inspection of the chest Resp Effort & Inspection: normal respiratory effort, able to speak in complete sentences and no respiratory distress GI Inspection: Yes normal to inspection Back/Spine/Pelvis Cervical Spine: normal cervical lordosis Thoracic/Lumbar Spine: thoracic and lumbar spine normal to inspection Skin General skin exam: no rashes or lesions noted Neuro General: patient oriented x3, gait normal, tone normal and moves all extremities Extrem General: Yes normal to inspection and Yes capillary refill normal Results AMB Urinalysis, Automated UA Leukoctes 0 Elpidio/uL Last Edit by CATALINA Webster on 01/27/25 13:27 UA Nitrite Last Edit by CATALINA Webster on 01/27/25 13:27 UA Urobilinogen 0.2 mg/dL Last Edit by CATALINA Webster on 01/27/25 13:2 7 UA Protein 15 mg/dL Last Edit by CATALINA Webster on 01/27/25 13:27 UA pH 5.5 Last Edit by CATALINA Webster on 01/27/25 13:27 UA Blood 0 Alex/uL Last Edit by CATALINA Webster on 01/27/25 13:27 UA Specific [place] 1.025 Last Edit by CATALINA Webster on 01/27/25 13: 27 UA Ketone Last Edit by CATALINA Webster on 01/27/25 13:27 UA Bilirubin 0 mg/dL Last Edit by CATALINA Webster on 01/27/25 13:27 UA Glucose 0 mg/dL Last Edit by CATALINA Webster on 01/27/25 13:27 Results Reviewed Results Reviewed: Laboratory Last Values Urine pH (Auto) 5.5 01/27/25 13:26 Specific [place] (Auto) 1.025 01/27/25 13:26 Urine Protein (Auto) 15 mg/dL 01/27/25 13:26 Glucose (UA)(Auto) 0 mg/dL 01/27/25 13:26 Urine Blood (Auto) 0 Alex/uL 01/27/25 13:26 Urine Bilirubin (Auto) 0 mg/dL 01/27/25 13:26 Urine Urobilinogen (Auto) 0.2 mg/dL 01/27/25 13:26 Leukocyte Esterase (Auto) 0 Elpidio/uL 01/27/25 13:26 Assessment & Plan Assessment & Plan (1) Kidney stones: Code(s): N20.0 - Calculus of kidney Category: Medical Plan Three-month follow-up repeat ultrasound Orders: Orders US renal BI 3 Months N20.0 - Calculus of kidney AMB Urinalysis Automated Today Z13.9 - Encounter for screening, unspecified Patient Instructions: This note is constructed using voice recognition software. While every effort has been made to ensure accuracy blasting entry specialist errors may have been included. Imaging studies, laboratory and physical exam results were discussed and reviewed in detail. No major barriers to patient understanding were identified. An opportunity to ask questions regarding the treatment plan was provided. All questions were answered. The patient expressed understanding and agreement with the above treatment plan. The patient is aware they should contact our office by phone for worsening of their current condition or the appearance of new urologic symptoms. Compliance is encouraged with any medications and followup testing that is ordered. It is a privilege to participate in the urologic care of your patient. If you have any questions or concerns regarding treatment for the above conditions, or other urologic issues, please do not hesitate to contact me. The office telephone contact is [phone]. Sincerely, Dr Adair Hernandez MD, [facility] - Urology Compassionate Specialist Care for the Genitourinary System Coding Level of Care Code New Pt Level 3 (23214) Diagnoses Kidney stones N20.0
--- OUTSIDE RECORDS SUMMARY | 2025-01-27 18:05 | XMS_ITS | Clinical Summary ---
Author Organization Patient Business Ser [facility] Address [address] [place] [address] Care Team Providers Care Calender Machine Operator Name Role Phone Ariela Amaya MD Primary Care Provider [phone] Allergies No known active allergies Medications metFORMIN [...] Active blood sugar diagnostic (ONE TOUCH TEST [facility] [place] 1 Strip by Does not apply route as needed (blood sugar). Use to check blood sugar as needed daily. E.11.9 1 Active glucose blood test strip Use to check blood sugar once daily 0 Active Autolet lancing device Use device as needed to check blood sugar 9 Active miscellaneous medical supply [facility] [place] Blood Glucose Calibration (OT ULTRA/FASTTK CNTRL SOLN) Solution 9 Active Active Problems Problem Noted Date Diagnosed Date Adjustment disorder with depressed mood 02/01/20 20 Type 2 diabetes mellitus wit hout complication, without long-term current use of insulin ([facility] V24, [facility] V28) 09/03/2018 Obese 06/05/2018 Nephrolithiasis 03/29/2017 BPH [...] Site/Laterality Comments KNEE ARTHROSCOPY W/ DEBRIDEMENT PROCEDURE: [place] ARTHRS KNEE DEBRIDEMENT/SHAVING ARTCLR CRTLG; COMMENT: right SINUS SURGERY PROCEDURE: [place] UNLISTED PROCEDURE ACCESSORY SINUSES; COMMENT: 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 Medical History Medical History Date Comments HTN (hypertension) DX:HTN (hyper tension) BPH (benign prostatic hyperplasia) DX:BPH (benign prostatic hyperplasia) Prediabetes DX:Prediabetes Type 2 diabetes mellitus wit hout complication, without long-term current use of insulin ([facility] V24, [facility] V28) 09/03/2018 DX:Type 2 diabetes mellitus without complication, without long-term current use of insulin ([facility]) Family History Relation Name Status Comments Daughter [...] * Annual BMP Blood Test (02/20/2021) Pathologist [facility] Annual BMP Blood Test Abstracted Result [facility] Provider HEALTH MAINTENANCE Final Result * Hemoglobin A1c (02/20/2021) [facility] Hemoglobin A1C 5.7 <=6.5 % Blood Venous blood specimen / Unknown Result [facility] Provider LAB BLOOD ORDERABLES Jael l Result * Lipid panel (02/20/2021) [facility] LDL/HDL Ratio 4 0 - 4 Triglycerides 146 0 - 150 mg/dL Cholesterol 171 0 - 200 mg/dL HDL 43 >=40 mg/dL LDL Cholesterol 99 0 - 100 mg/dL Blood Venous blood specimen / Unknown Result [facility] Provider LAB BLOOD ORDERABLES Jael l Result * Urine Albumin Creatinine Ratio (05/24/2020) Pathologist [facility] Urine Albumin Creatinine Ratio Abstracted Result [facility] Provider HEALTH MAINTENANCE Final Result * Colonoscopy (08/02/2017) [facility] Colonoscopy Negative, Abstracted Anatomical Region Laterality Modality Other [facility] Provider HEALTH MAINTENANCE Final Result * Hepatitis C Screening (03/27/2013) Hepatitis C Screening Abstracted us Historical Provider HEALTH MAINTENANCE Final Result from Last 3 Months or Most Recently Relevant to Health Maintenance Care Teams Calender Machine Operator Relationship Specialty Start Date End Date Ariela Amaya MD [address] [place] [address] PCP - General Internal Medicine 01/30/21
== END 2025-01-27 13:50 | disposition home or self-care (01) ==
LOC: HO.HUSH 12:56
PROVIDERS: PCP Nurse Practitioner Family; Visit Provider Urology
DX: N20.0 Calculus of kidney (principal); Z13.9 Encounter for screening, unspecified
CPT/HCPCS: 99203

== ENCOUNTER → 2025-01-27 12:55 | Outpatient (BNVA) | payer MEDICARE, SELFPAY | PROVIDERS: PCP Nurse Practitioner Family; Visit Provider Urology | DX: N20.0 Calculus of kidney (principal) | CPT/HCPCS: 81003; 99202 ==

== ENCOUNTER 2025-02-18 06:22 | Outpatient (AMB) | payer MEDICARE, SELFPAY ==
--- OUTSIDE RECORDS SUMMARY | 2025-02-18 06:25 | XMS_ITS | Clinical Summary ---
Author Organization Patient Business Ser [facility] Address [address] [place] [address] Care Team Providers Care Pizza Cook Name Role Phone Ariela Amaya MD Primary Care Provider [phone] Allergies No known active allergies Medications metFORMIN [...] Active blood sugar diagnostic (ONE TOUCH TEST [facility]) 1 Strip by Does not apply route as needed (blood sugar). Use to check blood sugar as needed daily. E.11.9 1 Active glucose blood test strip Use to check blood sugar once daily 0 Active Autolet lancing device Use device as needed to check blood sugar 9 Active miscellaneous medical supply [facility] [place] Blood Glucose Calibration (OT ULTRA/FASTTK CNTRL SOLN) Solution 9 Active Active Problems Problem Noted Date Diagnosed Date Adjustment disorder with depressed mood 02/01/20 20 Type 2 diabetes mellitus wit hout complication, without long-term current use of insulin ([facility] V24, [facility] V28) 09/03/2018 Obese 06/05/2018 Nephrolithiasis 03/29/2017 BPH [...] Site/Laterality Comments KNEE ARTHROSCOPY W/ DEBRIDEMENT PROCEDURE: [place] ARTHRS KNEE DEBRIDEMENT/SHAVING ARTCLR CRTLG; COMMENT: right SINUS SURGERY PROCEDURE: [place] UNLISTED PROCEDURE ACCESSORY SINUSES; COMMENT: 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 Medical History Medical History Date Comments HTN (hypertension) DX:HTN (hyper tension) BPH (benign prostatic hyperplasia) DX:BPH (benign prostatic hyperplasia) Prediabetes DX:Prediabetes Type 2 diabetes mellitus wit hout complication, without long-term current use of insulin ([facility] V24, [facility] V28) 09/03/2018 DX:Type 2 diabetes mellitus without complication, without long-term current use of insulin ([facility]) Family History Relation Name Status Comments Daughter [...] * Annual BMP Blood Test (02/20/2021) Pathologist [facility] Annual BMP Blood Test Abstracted Result [facility] Provider HEALTH MAINTENANCE Final Result * Hemoglobin A1c (02/20/2021) [facility] Hemoglobin A1C 5.7 <=6.5 % Blood Venous blood specimen / Unknown Result [facility] Provider LAB BLOOD ORDERABLES Jael l Result * Lipid panel (02/20/2021) [facility] LDL/HDL Ratio 4 0 - 4 Triglycerides 146 0 - 150 mg/dL Cholesterol 171 0 - 200 mg/dL HDL 43 >=40 mg/dL LDL Cholesterol 99 0 - 100 mg/dL Blood Venous blood specimen / Unknown Result [facility] Provider LAB BLOOD ORDERABLES Jael l Result * Urine Albumin Creatinine Ratio (05/24/2020) Pathologist [facility] Urine Albumin Creatinine Ratio Abstracted Result [facility] Provider HEALTH MAINTENANCE Final Result * Colonoscopy (08/02/2017) [facility] Colonoscopy Negative, Abstracted Anatomical Region Laterality Modality Other [facility] Provider HEALTH MAINTENANCE Final Result * Hepatitis C Screening (03/27/2013) Hepatitis C Screening Abstracted us Historical Provider HEALTH MAINTENANCE Final Result from Last 3 Months or Most Recently Relevant to Health Maintenance Care Teams Pizza Cook Relationship Specialty Start Date End Date Ariela Amaya MD [address] [place] [address] PCP - General Internal Medicine 01/30/21
--- NOTE | 2025-02-18 08:20 | MHC.PC.OV ---
Intake Visit Reasons: . Allergies No Known Allergies Allergy (Verified 01/27/25 13:11) Tobacco use date assessed: 11/11/24 Dental Screening Dental Screen Date: 11/11/24 HPI . HPI Details History of Present Illness The patient is a 75-year-old male presenting for a telehealth visit for evaluation of abdominal discomfort and elevated blood pressure. For the last three weeks, he has experienced increased gas and abdominal discomfort, which he describes as sharp and sometimes dull, especially after eating. He denies any changes in bowel habits or blood in his stool. The patient has a history of hypertension and was previously hypotensive on lisinopril and amlodipine, leading to the discontinuation of amlodipine. He has recently been recording systolic blood pressures in the 140s to 150s at home. He also has ongoing kidney stone issues with associated pelvic and flank discomfort, for which he is under the care of urology (ct scan ordered by them). Review of Systems - General: Denies fever and chills. - Cardiovascular: Denies chest pain. - Respiratory: Denies increased shortness of breath. - Gastrointestinal: Reports increased gas and abdominal discomfort for the last three weeks. Denies nausea, vomiting, changes in bowel habits, or hematochezia. - Genitourinary: Reports ongoing pelvic and flank discomfort related to kidney stones. - Neurological: Denies blurred vision, headache, or dizziness. Plan 1. Abdominal Pain And Flatulence The patient reports a three-week history of increased gas and sharp, sometimes dull, abdominal pain. A barium swallow will be ordered, and he will be started on a PPI and a probiotic. Follow-up is planned in a couple of weeks to assess his response. 2. Hypertension The patient reports recent home systolic blood pressure readings in the 140s-150s, having previously been hypotensive with amlodipine. He denies associated symptoms such as chest pain, increased shortness of breath, blurred vision, headache, or dizziness. Amlodipine will be restarted at a lower dose of 2.5 mg daily. The patient will continue home blood pressure monitoring and provide updates. 3. Nephrolithiasis The patient has ongoing issues with kidney stones, including pelvic and flank discomfort, and is actively following up with urology for management. Discussion Notes I discussed the patient's new onset abdominal symptoms and the plan to investigate with a barium swallow while starting empiric treatment with a PPI and a probiotic. We also reviewed his elevated home blood pressure readings, and I recommended restarting amlodipine at a lower dose of 2.5 mg to avoid previous issues with hypotension. I advised him to continue monitoring his blood pressure at home and to keep me informed of the readings. The patient was instructed to seek emergency care for any significant worsening of his symptoms. Patient Instructions - We are ordering a barium swallow test to look at your stomach. - Start taking a new medication (a PPI) for your stomach discomfort. - Begin taking a probiotic. - Restart your amlodipine blood pressure medication, but at a lower dose of 2.5 mg per day. - Continue to check your blood pressure at home and keep us updated on the readings. - Please contact us in a couple of weeks to let us know how you are feeling. - Go to the nearest emergency room if your symptoms become much worse. [facility] Medical History (Updated 02/18/25 @ 08:11 by SHELDON Arce) Lower urinary tract symptoms Afib Atrial fibrillation White coat syndrome with hypertension Obesity Adjustment disorder with depressed mood HTN (hypertension) Diabetes BPH (benign prostatic hyperplasia) Kidney stones Surgical History H/O colonoscopy Hx of right knee surgery History of surgery of head Social History Household Members: None Housing: Apartment Housing Other:: - 3 children Are you a primary cna caregiver to a significant other at home: No Do you presently have visiting nurse or other home services: No Alcohol intake: never Patient Tobacco Use Status: Never used Tobacco e-Cigarette/Vaping Use: Never Used Second Hand Smoke Exposure: No service: Yes ([employer]) Current occupational status: employed and retired Current occupation: [employer] Current occupational exposures/hazards: No Cognitive needs: No Hearing needs: No Vision needs: No Questionnaire Thrive Questionnaire Date Thrive assessed: 07/05/24 I am a: Patient What is your living situation today?: I have a steady place to live Within the past 12 months, did the food you bought not last and you didn't have the money to get more?: Never true Within the past 12 months, did you worry whether your food would run out before you got money to buy more?: Never true Do you have trouble paying for medicines?: No Do you have trouble getting transportation to medical appointments?: No Do you have trouble paying your heating and electricity bill?: No Do you have trouble taking care of your child, family member or friend?: No Do you have trouble with day-to-day activities such as bathing, preparing meals, shopping, managing finances, etc.?: No Are you currently unemployed and looking for a job?: No Are you interested in more education?: No Please select the resources that you would like help with: None Currently or been in a relationship where the following occur: No concerns reported THRIVE Score: 0 KYLE-7 AMB Questionnaire KYLE-7 Date KYLE - 7 assessed: 11/11/24 Source: Developed by Drs. Ernie Garcia, Mindi Barton, Richard Brooks and colleagues, with an educational kvng from [employer]. Physical exam (Primary Care) Tobacco/Smoking Status: Tobacco use Status Tobacco use date assessed 11/11/24 11/11/24 10:45 Patient Tobacco Use Status Never used Tobacco 01/14/25 08:26 e-Cigarette/Vaping Use Never Used 11/11/24 10:45 Thrive Assessment: Date of Thrive Assessment Date Thrive assessed 07/05/24 11/11/24 10:45 Currently or been in a relationship where the following occur: No concerns reported Telehealth Telehealth [facility]health [facility] Location of provider rendering services: practice address Location of patient: address on file Patient Identification confirmed using: Name, : Yes Telehealth method: video Patient verbally consented to treatment: Yes Patient verbally consented to billing insurance company: Yes Patient informed of any privacy concerns related to visit: Yes Minutes spent on Phone/Video with Pt.: 15 Coding Level of Care Code Tele Est Pt Level 3 (56428) Diagnoses HTN (hypertension) I10 Stomach pain R10.9 Lower urinary tract symptoms R39.9 Assessment & Plan Assessment & Plan (1) HTN (hypertension): Code(s): I10 - Essential (primary) hypertension Category: Medical (2) Stomach pain: Code(s): R10.9 - Unspecified abdominal pain Category: Medical (3) Lower urinary tract symptoms: Code(s): R39.9 - Unspecified symptoms and signs involving the genitourinary system Category: Medical Plan . Orders: Orders [place] barium swallow Today R10.9 - Unspecified abdominal pain Medications: New amlodipine 2.5 mg PO DAILY 90 tabs 0RF atorvastatin (Lipitor) 10 mg PO BEDTIME 90 tabs 0RF pantoprazole 20 mg PO DAILY 30 tabs 2RF
== END 2025-02-18 10:18 | disposition home or self-care (01) ==
LOC: HO.HMCC 06:23
PROVIDERS: PCP Nurse Practitioner Family; Visit Provider Nurse Practitioner Family
DX: I10 Essential (primary) hypertension (principal); R10.9 Unspecified abdominal pain; R39.9 Unspecified symptoms and signs involving the genitourinary system

== ENCOUNTER 2025-02-18 09:00 | Outpatient (REF) | payer MEDICARE, SELFPAY ==
--- OUTSIDE RECORDS SUMMARY | 2025-02-18 16:46 | XMS_ITS | Clinical Summary ---
Author Organization Patient Business Ser [facility] Address [address] [place] [address] Care Team Providers Care Manager Cancer Name Role Phone Ariela Amaya MD Primary Care Provider [phone] Allergies No known active allergies Medications metFORMIN [...] Active blood sugar diagnostic (ONE TOUCH TEST [facility]) 1 Strip by Does not apply route as needed (blood sugar). Use to check blood sugar as needed daily. E.11.9 1 Active glucose blood test strip Use to check blood sugar once daily 0 Active Autolet lancing device Use device as needed to check blood sugar 9 Active miscellaneous medical supply [facility] [place] Blood Glucose Calibration (OT ULTRA/FASTTK CNTRL SOLN) Solution 9 Active Active Problems Problem Noted Date Diagnosed Date Adjustment disorder with depressed mood 02/01/20 20 Type 2 diabetes mellitus wit hout complication, without long-term current use of insulin ([facility] V24, [facility] V28) 09/03/2018 Obese 06/05/2018 [...] Site/Laterality Comments KNEE ARTHROSCOPY W/ DEBRIDEMENT PROCEDURE: [place] ARTHRS KNEE DEBRIDEMENT/SHAVING ARTCLR CRTLG; COMMENT: right SINUS SURGERY PROCEDURE: [place] UNLISTED PROCEDURE ACCESSORY SINUSES; COMMENT: 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 Medical History Medical History Date Comments HTN (hypertension) DX:HTN (hyper tension) BPH (benign prostatic hyperplasia) DX:BPH (benign prostatic hyperplasia) Prediabetes DX:Prediabetes Type 2 diabetes mellitus wit hout complication, without long-term current use of insulin ([facility] V24, [facility] V28) 09/03/2018 DX:Type 2 diabetes mellitus without complication, without long-term current use of insulin ([facility]) Family History Relation Name [...] BMP Blood Test (02/20/2021) Pathologist [facility] Annual BMP Blood Test Abstracted Result [facility] Provider HEALTH MAINTENANCE Final Result * Hemoglobin A1c (02/20/2021) [facility] Hemoglobin A1C 5.7 <=6.5 % Blood Venous blood specimen / Unknown Result [facility] Provider LAB BLOOD ORDERABLES Jael l Result * Lipid panel (02/20/2021) [facility] LDL/HDL Ratio 4 0 - 4 Triglycerides 146 0 - 150 mg/dL Cholesterol 171 0 - 200 mg/dL HDL 43 >=40 mg/dL LDL Cholesterol 99 0 - 100 mg/dL Blood Venous blood specimen / Unknown Result [facility] Provider LAB BLOOD ORDERABLES Jael l Result * Urine Albumin Creatinine Ratio (05/24/2020) Pathologist [facility] Urine Albumin Creatinine Ratio Abstracted Result [facility] Provider HEALTH MAINTENANCE Final Result * Colonoscopy (08/02/2017) [facility] Colonoscopy Negative, Abstracted Anatomical Region Laterality Modality Other [facility] Provider HEALTH MAINTENANCE Final Result * Hepatitis C Screening (03/27/2013) Hepatitis C Screening Abstracted us Historical Provider HEALTH MAINTENANCE Final Result from Last 3 Months or Most Recently Relevant to Health Maintenance Care Teams Manager Cancer Relationship Specialty Start Date End Date Ariela Amaya MD [address] [place] [address] PCP - General Internal Medicine 01/30/21
== END 2025-02-18 09:01 | disposition home or self-care (01) ==
LOC: HO.HMGCLNP 09:00
PROVIDERS: PCP Nurse Practitioner Family; Visit Provider Urology
DX: N20.0 Calculus of kidney (principal)
CPT/HCPCS: 82365; 88300

== ENCOUNTER 2025-03-05 07:13 | Outpatient (REF) | payer MEDICARE, SELFPAY ==
--- NOTE | ~2025-03-05 | CT_ITS ---
EXAMINATION: CT ABDOMEN AND PELVIS WITHOUT CONTRAST CLINICAL INFORMATION: Calculus of kidney. COMPARISON: No prior. Correlation made with retroperitoneal ultrasound 01/22/2025. TECHNIQUE: Multidetector volumetric imaging was performed from the superior aspect of the liver through the pubic symphysis. Sagittal and coronal reformatted images were obtained on the technologist's workstation. This CT examination was performed using dose optimization techniques as appropriate, variously including the following: *Automated exposure control *Adjustment of mA and/or kV according to patient size (this includes techniques or standardized protocols for targeted exams where dose is matched to indication/reason for exam; i.e. extremities or head) *Use of iterative reconstruction technique FINDINGS: LUNG BASES: Imaged lung bases are clear. There is a tiny type I hiatus hernia suspected. Heart size is normal. No pericardial or pleural effusion. LIVER, GALLBLADDER, AND BILIARY TREE: The unenhanced liver is normal in size, shape, and attenuation. No focal hepatic lesion or biliary ductal dilatation is present. The gallbladder is unremarkable with no evidence of radiopaque gallstones, gallbladder wall thickening, or obvious pericholecystic inflammatory changes. PANCREAS: Unremarkable. SPLEEN: Unremarkable. ADRENAL GLANDS: Unremarkable. KIDNEYS AND URETERS: The kidneys are normal in size, shape, and attenuation. No hydronephrosis or hydroureter. No perinephric stranding. There is a 4 mm nonobstructing calculus in the left kidney inferior pole. No additional calculi. There is a 4.2 x 4.0 cm simple cyst in the superior pole of the left kidney. BLADDER: Incompletely distended. Normal appearance. GASTROINTESTINAL TRACT: Small type I hiatus hernia. Stomach is grossly normal. Duodenal sweep is grossly normal. Small bowel is normal in caliber and course without evidence of inflammation. Normal appendix visualized. The colon is normal in course, caliber, and appearance. There is mild diverticulosis of the sigmoid region. No wall thickening or inflammation. The rectum is normal. ABDOMINAL WALL: No significant hernia is appreciated. LYMPH NODES: No abnormal lymphadenopathy present. VASCULAR: There is mild atheromatous calcification of the aorta and iliac arteries. There is no aneurysm. PELVIC VISCERA: The prostate and seminal vesicles are unremarkable. OSSEOUS STRUCTURES: No suspicious lytic or blastic bone lesions. Mild degenerative spondylosis of the lumbar spine. Mild degenerative changes in both hip joints. CT/CT kidney stone IMPRESSION: 1. There is no hydronephrosis or hydroureter. There is a 4 mm nonobstructing calculus in the left kidney inferior pole. No additional urological calculi. 2. Mild sigmoid diverticulosis. 3. Small type I hiatus hernia. 4. Additional ancillary findings as discussed in the body of the report. Electronically signed by: Cornelius Smith MD 03/05/2025 08:49 AM [facility] [place]
--- OUTSIDE RECORDS SUMMARY | 2025-03-05 07:16 | XMS_ITS | Encounter Summary ---
Author Organization [facility] Address [address] [place] [address] Care Team Providers Care Banquet Captain Name Role Phone Ashlyn Foote MD Primary Care Provider [phone] Fina Fischer MD Primary Care Provider Unava ilable Ernie Hauser DO Primary Care Provider Celia vailable Ariela Amaya MD Primary Care Provider [phone] Reason for Visit * Reason Onset Date Comments REFERRAL 04/12/2015 Encounter Details Date Type Department Care Team Description 04/12/2015 Telephone [facility] [address] [place] [address] Gilmar Mckenna MD REFERRAL Social History Tobacco Use Types Packs/Day Years Used Date Smoking Tobacco: Never Smokeless Tobacco: Never Alcohol Use Standard Drinks/Week Comments No 0 (1 standard drink = 0.6 oz pur e alcohol) Sex Assigned at Date Recorded Not on file documented as of this encounter Miscellaneous Notes * Telephone Encounter - Hallie Alfred - 04/12/2015 9:49 AM EST FYI ONLY. Called pt 03/15/15,03/22/15, and sent letter 03/29/15 with no response. I am removing thispt's order from the sleep study schedule. Order expires 03/11/16,BC/BS Auth # [id number] 03/15/15 - 05/13/15 AQ. ESS REQkl. documented in this encounter Plan of Treatment Not on file documented as of this encounter Visit Diagnoses Not on filedocumented in this encounter Care Teams Banquet Captain Relationship Specialty Start Date End Date Ashlyn Foote MD [address] [place] [id number] PCP - General Internal Medicine 03/11/15 12/29/17 Fina Fischer MD [address] [place] [address] PCP - General Internal Medicine 12/30/17 08/29/20 Ernie Hauser DO [address] [place], [place] [phone] PCP - General Internal Medicine 08/30/20 01/29/21 Ariela Amaya MD [address] [place] [address] PCP - General Internal Medicine 01/30/21 documented as of this encounter
--- OUTSIDE RECORDS SUMMARY | 2025-03-05 07:16 | XMS_ITS | Encounter Summary ---
Author Organization [facility] Address [address] [place] [address] Care Team Providers Care Multigraph Operator Name Role Phone Ashlyn Foote MD Primary Care Provider [phone] Fina Fischer MD Primary Care Provider Unava ilable Ernie Hauser DO Primary Care Provider Celia vailable Ariela Amaya MD Primary Care Provider [phone] Encounter Details Date Type Department Care Team Description 11/27/2016 Diabetic log Medical Records [address] [place] [id number] Abstract, Provider Social History Tobacco Use Types Packs/Day Years Used Date Smoking Tobacco: Never Smokeless Tobacco: Never Alcohol Use Standard Drinks/Week Comments No 0 (1 standard drink = 0.6 oz pur e alcohol) Sex Assigned at Date Recorded Not on file documented as of this encounter Plan of Treatment Not on file documented as of this encounter Visit Diagnoses Not on filedocumented in this encounter Care Teams Multigraph Operator Relationship Specialty Start Date End Date Ashlyn Foote MD [address] [place] [phone] PCP - General Internal Medicine 03/11/15 12/29/17 Fina Fischer MD [address] [place] [address] 15[address] PCP - General Internal Medicine 12/30/17 08/29/20 Ernie Hauser DO [address] [place] [phone] PCP - General Internal Medicine 08/30/20 01/29/21 Ariela Amaya MD [address] [place] [address] [phone] PCP - General Internal Medicine 01/30/21 documented as of this encounter
--- OUTSIDE RECORDS SUMMARY | 2025-03-05 07:16 | XMS_ITS | Encounter Summary ---
Author Organization [facility] Address [address] [place] [address] Care Team Providers Care Recreation Adviser Name Role Phone Fina Fischer MD Primary Care Provider Ernie Salomon DO Primary Care Provider Celia Ariela Borja MD Primary Care Provider [phone] Reason for Visit * Reason Comments E-prescribe Rx Request Encounter Details Date Type Department Care Team Description 11/22/2019 Refill Adult Medicine [address] [address] Fina Fischer MD E-prescribe Rx Request Social History Tobacco Use Types Packs/Day Years Used Date Smoking Tobacco: Never Smokeless Tobacco: Never Alcohol Use Standard Drinks/Week Comments No 0 (1 standard drink = 0.6 oz pur e alcohol) Sex Assigned at Date Recorded Not on file documented as of this encounter Miscellaneous Notes * Telephone Encounter - Cornelius Temple M.A. - 11/24/2019 1:53 PM EDT Faxed to pharmacy * Telephone Encounter - Karina Dickerson M.A. - 11/23/2019 10:17 AM EDT Lab Results Component Value Date NA 139 12/30/2018 K 4.1 12/30/2018 CO2 30 12/30/2018 CL 104 12/30/2018 BUN 18 12/30/2018 CREAT 1.14 12/30/2018 GLU 122 12/30/2018 CA 9.4 12/30/2018 GFR > 60 12/30/2018 * Telephone Encounter - Jean-Pierre De La Paz - 11/23/2019 9:40 AM EDT Patient would like script to be: E-PRESCRIBED/FAXED TO PHARMACY WHEN WAS THE PATIENT'S LAST APPOINTMENT IN ADULT MEDICINE? 09/15/2019 WHEN WAS THE LAST TIME THE PATIENT SAW THEIR PCP? 05/19/2019 Does patient have an upcoming appointment? Yes 02/01/2020 (THE MEDICATION REQUESTED IS ON THE MED LIST ABOVE) All of the medications requested were on the CURRENT MEDS list Did you check the Pharmacy information above?: YES Patient wants: 90 -day supply Is this a mail order prescription request ? NO If the refill is from a FAXED refill request what is the RX # listed on the fax? N/A Patients current insurance carrier is: Payor: [facility]/MEDICARE PPO / Plan: [facility] MDCR-ADV PPO $20/$40 [place] / Product Type: MEDICARE [id number] documented in this encounter Plan of Treatment Not on file documented as of this encounter Visit Diagnoses Not on filedocumented in this encounter Care Teams Recreation Adviser Relationship Specialty Start Date End Date Fina Fischer MD PCP - General Internal Medicine 12/30/17 08/29/20 Ernie Hauser DO PCP - General Internal Medicine 08/30/20 Ariela Amaya MD [address] [place] [phone] PCP - General Internal Medicine 01/30/21 documented as of this encounter
--- OUTSIDE RECORDS SUMMARY | 2025-03-05 07:16 | XMS_ITS | Clinical Summary ---
Author Organization [facility] Address [address] [place] [address] Care Team Providers Care Babbitter Name Role Phone Ariela Amaya MD Primary Care Provider [phone] Allergies No known active allergies Medications Medication Sig Dispensed Refills Start Date End Date Status Blood Glucose Monitoring Suppl (ONE TOUCH ULTRA 2) W/DEVICE Kit Use device as needed to check blood sugar 1 Kit 0 06/02/2018 Active Blood Glucose Calibration (OT ULTRA/FASTTK CNTRL SOLN) Solution Use to calibrate glucometer as needed 1 Each 5 06/02/2018 Active Glucose Blood (ONE TOUCH ULTRA TEST STRIPS) Strip Use to check blood sugar once daily 50 Strip 2 05/19/2019 Active ONE TOUCH BASIC STRIPS 1 Strip by Does not apply route as needed (blood sugar). Use to check blood sugar as needed daily. E.11.9 100 Strip 11 05/31/2020 Active terazosin (HYTRIN) 10 MG capsule Take 1 capsule by mouth at bedtime. 90 capsule 1 02/14/2021 Active lisinopril (PRINIVIL,ZESTRIL) 40 MG tablet TAKE 1 TABLET BY MOUTH DAILY 90 tablet 1 02/15/2021 Active metformin (GLUCOPHAGE) 500 MG tablet TAKE 1 TABLET BY MOUTH TWICE DAILY WITH MEALS 180 Tablet 1 07/25/2021 Active Active Problems Patient Care Coordination No te Formatting of this note is d ifferent from the original. Checking Your Blood Sugars Please check your blood sugars every day. Please check your sugars at the following times of day: before breakfast and after breakfast Your Blood Sugar Goals Pre Meal: 90-130 2 hours after meals: 110-160 Bedtime: 110-150 Use the Results Bring your glucometer to every appointment Write your fingerstick blood sugars down on a log sheet or record book. Bring them to your appointment Look for patterns in the numbers. The results help you and your provider make decisions about your diabetes treatment plan. Your Results and your Goals Your Result / Date of Completion Your Goal / How Often to Assess Lab Results Component Value Date HGBA1C 6.3 08/26/2018 Less than 7% --- 2-4 times per year BP Readings from Last 1 Encounters: 09/03/18 (!) 140/92 Less than 140/90 --- once per year Lab Results Component Value Date MALBCR 3.0 12/24/2017 Less than 30 --- once per year Lab Results Component Value Date LDL 84 08/26/2018 Less than 100 --- once per year Wt Readings from Last 1 Encounters: 09/03/18 279 lb 6.4 oz (126.7 kg) Your goal weight by next visit: 270 --- reassess 2-4 times a year Health Maintenance Due Topic Date Due PNEUMOCOCCAL VACCINE (1 of 2 - Dose 1 = PCV13, Dose 2 = PPSV23) 01/13/2017 COLON CANCER SCREEN WITH STOOL CARD 08/02/2018 Your Action Plan Your diabetes is well controlled and no changes are required to your current plan. Start/adjust diabetic medications as directed. Check blood glucose as directed and write down all results. Review blood pressure medications Make appointment to see your eye doctor Check feet for sores every day Continue to work on weight loss with a goal of losing 2-4 pounds per month Avoid walking in bare or stocking feet due to the numbness in your feet Increase physical activity Contact me if you experience any barriers to care such as inability to purchase your medication, difficulty getting to your appointments or difficulty understanding your care plan Avoid alcohol Please get your pneumonia shot Please get your yearly flu shot Please consider obtaining a diabetes MedicAlert identification bracelet or necklace When to Call your Healthcare Provider If your blood sugar falls below 70 and you do not know why or you become unconscious If you are sick and unable to take liquids because or nausea or vomiting If you have a fever over 101 If your blood sugar is 300 or higher on greater than 3 separate occasions during the same week If you are just unsure what to do Educational Resources [place] Diabetes Association (www.diabetes.org) Centers for Disease Control and Prevention (www.cdc.gov/diabetes) This care plan was created in collaboration with Gilmar Marr on 09/03/2018 Problem Noted Date Adjustment disorder with depressed mood 02/01/2020 Type 2 diabetes mellitus wit hout complication, without long-term current use of insulin 09/03/2018 Obese 06/05/2018 Nephrolithiasis 03/29/2017 HTN (hypertension) 08/18/2009 BPH (benign prostatic hyperplasia) 08/18 Resolved Problems Problem Noted Date Resolved Date Iron deficiency anemia 09/30/2017 0 Overview: Normal colonoscopy Anemia in other chronic diseases classified else where 06/28/2017 09/30/2017 Prediabetes 05/18/2016 06/02/2018 Immunizations Name Administration Dates Next Due COVID-19 (Pfizer) 08/05/2020,07/15/2020 COVID-19 (Pfizer) Pt Reported 08/05/2020, 021 Influenza (> 6 Months) 12/23/2015,2014,01/25/2013,2010,01/18/2010 Influenza (>6 Months) Split Preservative Free 12/17/2019 Influenza Flu (PT Reported) 12/18/2019, 4 Influenza Vaccine-quadrivale nt 4 Years Plus 01/06/2017 Influenza vaccine high dose age 65 and over 12/28/2020,01/05/2019,12/30/2017 Tdap 12/17/2019,07/28/2009 Family History Relation Name Status Comments Daughter [...] Assigned at Date Recorded Not on file Last Filed Vital Signs Vital Sign Reading Time Taken Comments Blood Pressure 128/80 11/30/2020 8:50 AM EDT Pulse 78 11/30/2020 8:50 AM EDT Temperature 36.1 C (97 F) 11/30/2020 8:50 AM EDT Respiratory Rate 16 11/30/2020 8:50 AM EDT Oxygen Saturation 97% 11/30/2020 8:50 AM EDT Inhaled Oxygen Concentration - - Weight 109.2 kg (240 lb 12.8 oz) 11/30/2020 8:50 AM EDT Height 182.9 cm (6') 11/30/2020 8:50 AM EDT Body Mass Index 32.66 11/30/2020 8:50 AM EDT Plan of Treatment Health Maintenance Due Date Last Done Comments SHINGLES VACCINE (1 of 2) 01/13/2002 DIABETES: BLOOD SUGAR CONTROL TEST (HGBA1C) 05/23/2021 02/20/2021, 11/22/2020, 08/30/2020, Additional history exists DIABETES: ANNUAL URINE PROTEIN TEST (MICROALBUMIN) 05/24/2021 05/24/2020, 01/05/2019, 12/24/2017, Additional history exists DIABETES: ANNUAL FOOT EXAM 05/31/2021 05/31/2020, DIABETES: ANNUAL EYE EXAM 09/26/20212020, 09/16/2019 (External Completion), 07/09/2018 DIABETES/HEART DISEASE: ANNUAL CHOLESTEROL (LDL) 02/20/2022 02/20/2021, 08/30/2020, 05/24/2020, Additional history exists BMI CHECK/ADVISE 04/08/2024 11/30/2020, , 05/31/2020, Additional history exists Covid-19 Vaccine ( season) 2024 08/05/2020, 08/05/2020, 07/15/2020, Additional history exists INFLUENZA (#1) 2024 12/28/2020, 12/07, 12/17/2019, Additional history exists COLON CANCER SCREENING 08/03/2027 08/02/2017 DTAP/TDAP/TD (4 - Td or Tdap) 12/16/2029 12/17/2019, 12/14/2019 (External Completion of Vaccination per patient), 07/28/2009 HEPATITIS C SCREENING Completed 03/27/2013 PNEUMOCOCCAL VACCINE Addressed 02/01/2020 (Refused), 01/05/2019 (Refused) Overridden with the intention of not completing the topic Care Teams Babbitter Relationship Specialty Start Date End Date Ariela Amaya MD [address] [place] [address] PCP - General Internal Medicine 01/30/21
--- OUTSIDE RECORDS SUMMARY | 2025-03-05 07:16 | XMS_ITS | Clinical Summary ---
Author Organization [facility] Address [address] [place] [address] Care Team Providers Care Icebox Man Name Role Phone Ariela Amaya MD Primary Care Provider [phone] Allergies No known active allergies Medications metFORMIN [...] blood sugar diagnostic (ONE TOUCH TEST [facility]) 1 Strip by Does not apply route as needed (blood sugar). Use to check blood sugar as needed daily. E.11.9 1 Active glucose blood test strip Use to check blood sugar once daily 0 Active Autolet lancing device Use device as needed to check blood sugar 9 Active miscellaneous medical supply [facility] Blood Glucose Calibration (OT ULTRA/FASTTK CNTRL SOLN) Solution 9 Active Active Problems Problem Noted Date Diagnosed Date Adjustment disorder with depressed mood 02/01/20 20 Type 2 diabetes mellitus wit hout complication, without long-term current use of insulin ([facility] V24, [facility] V28) 09/03/2018 Obese 06/05/2018 Nephrolithiasis [...] complication, without long-term current use of insulin ([facility] V24, [facility] V28) 09/03/2018 DX:Type 2 diabetes mellitus without complication, without long-term current use of insulin ([facility]) Family History Relation Name Status [...] * Annual BMP Blood Test (02/20/2021) [facility] Annual BMP Blood Test Abstracted Result [facility] Provider HEALTH MAINTENANCE Final Result * Hemoglobin A1c (02/20/2021) [facility] Hemoglobin A1C 5.7 <=6.5 % Blood Venous blood specimen / Unknown Result [facility] Provider LAB BLOOD ORDERABLES Jael l Result * Lipid panel (02/20/2021) [facility] LDL/HDL Ratio 4 0 - 4 Triglycerides 146 0 - 150 mg/dL Cholesterol 171 0 - 200 mg/dL HDL 43 >=40 mg/dL LDL Cholesterol 99 0 - 100 mg/dL Blood Venous blood specimen / Unknown Result [facility] Provider LAB BLOOD ORDERABLES Jael l Result * Urine Albumin Creatinine Ratio (05/24/2020) [facility] Urine Albumin Creatinine Ratio Abstracted Result [facility] Provider HEALTH MAINTENANCE Final Result * Colonoscopy (08/02/2017) [facility] Colonoscopy Negative, Abstracted Anatomical Region Laterality Modality Other [facility] Provider HEALTH MAINTENANCE Final Result * Hepatitis C Screening (03/27/2013) Hepatitis C Screening Abstracted us Historical Provider HEALTH MAINTENANCE Final Result from Last 3 Months or Most Recently Relevant to Health Maintenance Care Teams Icebox Man Relationship Specialty Start Date End Date Ariela Amaya MD [address] [place] [address] PCP - General Internal Medicine 01/30/21
--- OUTSIDE RECORDS SUMMARY | 2025-03-05 07:16 | XMS_ITS | Encounter Summary ---
Author Organization [facility] Address [address] [place] [address] Care Team Providers Care Associate Professor Of Sociology Name Role Phone Fina Fischer MD Primary Care Provider Ernie Salomon DO Primary Care Provider Celia Ariela Borja MD Primary Care Provider [phone] Reason for Visit * Reason Onset Date Comments Appointment-Internal Referral 06/17/2018 Encounter Details Date Type Department Care Team Description 06/17/2018 Telephone Adult Medicine [address] [address] Fina Fischer MD Appointment-Internal Referral Social History Tobacco Use Types Packs/Day Years Used Date Smoking Tobacco: Never Smokeless Tobacco: Never Alcohol Use Standard Drinks/Week Comments No 0 (1 standard drink = 0.6 oz pur e alcohol) Sex Assigned at Date Recorded Not on file documented as of this encounter Miscellaneous Notes * Telephone Encounter - Karina Bee - 06/17/2018 2:12 PM EDT We have made several attempts to reach this patient to set up an appointment . At this point we will be removing the patient from the referrals list. Thank You Hypertension Dept. documented in this encounter Plan of Treatment Not on file documented as of this encounter Visit Diagnoses Not on filedocumented in this encounter Care Teams Associate Professor Of Sociology Relationship Specialty Start Date End Date Fina Fischer MD PCP - General Internal Medicine 12/30/17 08/29/20 Ernie Hauser DO PCP - General Internal Medicine 08/30/20 Ariela Amaya MD [address] [place] [phone] PCP - General Internal Medicine 01/30/21 documented as of this encounter
--- OUTSIDE RECORDS SUMMARY | 2025-03-05 07:16 | XMS_ITS | Encounter Summary ---
Author Organization [facility] Address [address] [place] [address] Care Team Providers Care Rat Trapper Name Role Phone Name, Gasper COSTELLO Primary Care Provider Unavailabl e Ashlyn Foote MD Primary Care Provider Fina Fischer MD Primary Care Provider Unava ilable Ernie Hauser DO Primary Care Provider Celia Ariela Borja MD Primary Care Provider [phone] Encounter Details Date Type Department Care Team Description 02/19/2014 Release of Information Medical Records [address] [place], [place] [id number] Abstract, Provider Social History Tobacco Use Types [...] on filedocumented in this encounter Care Teams Rat Trapper Relationship Specialty Start Date End Date Name, MD Gasper PCP - General 06/22/09 03/10/15 Ashlyn Foote MD [address] [place] [address] [phone] PCP - General Internal Medicine 03/11/15 12/29/17 Fina Fischer MD [address] [place] [address] PCP - General Internal Medicine 12/30/17 08/29/20 Ernie Hauser DO [address] [place], [place] [address] PCP - General Internal Medicine 08/30/20 01/29/21 Ariela Amaya MD [address] [place] [phone] PCP - General Internal Medicine 01/30/21 documented as of this encounter
--- OUTSIDE RECORDS SUMMARY | 2025-03-05 07:16 | XMS_ITS | Encounter Summary ---
Author Organization [facility] Address [address] [place] [address] Care Team Providers Care Video Photographer Name Role Phone Ashlyn Foote MD Primary Care Provider [phone] Fina Fischer MD Primary Care Provider Unava ilable Ernie Hauser DO Primary Care Provider Celia vailable Ariela Amaya MD Primary Care Provider [phone] Reason for Visit * Reason Onset Date Comments Pre Op Visit 11/12/2017 office note Encounter Details Date Type Department Care Team Description 11/12/2017 Telephone Adult Medicine [address] [id number] Ashlny Foote MD [address] [place] [address] [phone] Pre Op Visit (office note) Social History Tobacco Use Types Packs/Day Years Used Date Smoking Tobacco: Never Smokeless Tobacco: Never Alcohol Use Standard Drinks/Week Comments No 0 (1 standard drink = 0.6 oz pur e alcohol) Sex Assigned at Date Recorded Not on file documented as of this encounter Miscellaneous Notes * Telephone Encounter - Violet Tapia - 11/12/2017 8:[address] Foote Just a reminder, Can you please complete your office note for this patient. His procedure is scheduled for tomorrow. Thank you documented in this encounter Plan of Treatment Not on file documented as of this encounter Visit Diagnoses Not on filedocumented in this encounter Care Teams Video Photographer Relationship Specialty Start Date End Date Ashlyn Foote MD [address] [place] [phone] PCP - General Internal Medicine 03/11/15 12/29/17 Fina Fischer MD [address] [place] [phone] PCP - General Internal Medicine 12/30/17 08/29/20 Ernie Hauser DO [address] [place], [place] [phone] PCP - General Internal Medicine 08/30/20 01/29/21 Ariela Amaya MD [address] [place] [phone] PCP - General Internal Medicine 01/30/21 documented as of this encounter
--- OUTSIDE RECORDS SUMMARY | 2025-03-05 07:16 | XMS_ITS | Encounter Summary ---
Author Organization [facility] Address [address] [place] [address] Care Team Providers Care Public Weigher Name Role Phone Ernie Hauser DO Primary Care Provider Celia Ariela Borja MD Primary Care Provider [phone] Reason for Visit * Reason Onset Date Comments refill request 11/21/2020 Encounter Details Date Type Department Care Team Description 11/21/2020 Refill Adult Medicine [address] [address] Ernie Hauser DO refill request Social History Tobacco Use Types Packs/Day Years Used Date Smoking Tobacco: Never Smokeless Tobacco: Never Alcohol Use Standard Drinks/Week Comments No 0 (1 standard drink = 0.6 oz pur e alcohol) Sex Assigned at Date Recorded Not on file documented as of this encounter Miscellaneous Notes * Telephone Encounter - Cassi Ellis M.A. - 11/21/2020 1:05 PM EDT Last office visit 08/30/20 Next office visit 11/30/20 with Shaniqua Saavedra Pt has never seen and does not have a scheduled appt with new PCP Lab Results Component Value Date NA 141 08/30/2020 K 4.3 08/30/2020 CO2 27 08/30/2020 CL 104 08/30/2020 BUN 17 08/30/2020 CREAT 1.29 08/30/2020 GLU 124 08/30/2020 CA 9.9 08/30/2020 GFR 55 08/30/2020 * Telephone Encounter - Mello Solomon - 11/21/2020 12:13 PM EDT Who is calling? The patient Name of the medication lisinopril (PRINIVIL,ZESTRIL) 40 MG tablet What is the specific problem or interaction? Patient called and stated pharmacy contacted him and advised they can not refill medication due patient is out of refills, Patient and pharmacy request new script to be sent to pharmacy If the patient is having a problem with taking the med - how long has the problem been going on ? N/A documented in this encounter Plan of Treatment Not on file documented as of this encounter Visit Diagnoses Not on filedocumented in this encounter Care Teams Public Weigher Relationship Specialty Start Date End Date Ernie Hauser DO PCP - General Internal Medicine 08/30/20 Ariela Amaya MD [address] [place] [phone] PCP - General Internal Medicine 01/30/21 documented as of this encounter
--- OUTSIDE RECORDS SUMMARY | 2025-03-05 07:16 | XMS_ITS | Encounter Summary ---
Author Organization [facility] Address [address] [place] [address] Care Team Providers Care Adjunct Phlebotomy Instructor Name Role Phone Ariela Amaya MD Primary Care Provider [phone] Reason for Visit * Reason Comments E-prescribe Rx Request Encounter Details Date Type Department Care Team Description 01/21/[address] [facility] [address] [place] [address] Shaniqua Saavedra PA-C [address] [place] [address] E-prescribe Rx Request Social History Tobacco Use Types Packs/Day Years Used Date Smoking Tobacco: Never Smokeless Tobacco: Never Alcohol Use Standard Drinks/Week Comments No 0 (1 standard drink = 0.6 oz pur e alcohol) Sex Assigned at Date Recorded Not on file documented as of this encounter Miscellaneous Notes * Telephone Encounter - Karina Dickerson M.A. - 01/31/2022 9:46 AM EDT Lab Results Component Value Date HGBA1C 5.7 02/20/2021 MALBUR 16.0 05/24/2020 MALBCR 11.9 05/24/2020 CHOL 171 02/20/2021 LDL 99 02/20/2021 HDL 43 02/20/2021 TRIG 146 02/20/2021 GLU 117 02/20/2021 CREAT 1.04 02/20/2021 MARIBELL 11/30/20 - Adolfo Saavedra *NO Show 07/27/21 Patient has NOT established with NEW PCP NO pending appt.- See below * Telephone Encounter - Kristin Raymond - 01/31/2022 9:25 AM EDT Multiple attempts has been made for pt to make appt . Letter has been mailed documented in this encounter Plan of Treatment Not on file documented as of this encounter Visit Diagnoses Not on filedocumented in this encounter Care Teams Adjunct Phlebotomy Instructor Relationship Specialty Start Date End Date Ariela Amaya MD [address] [place] [id number] PCP - General Internal Medicine 01/30/21 documented as of this encounter
--- OUTSIDE RECORDS SUMMARY | 2025-03-05 07:16 | XMS_ITS | Encounter Summary ---
Author Organization [facility] Address [address] [place] [address] Care Team Providers Care Retort Fireman Name Role Phone Ernie Hauser DO Primary Care Provider Celia Ariela Borja MD Primary Care Provider [phone] Encounter Details Date Type Department Care Team Description 12/05/2020 Diabetic log Medical Records [address] [place] [id number] Abstract, Provider Social History Tobacco Use Types Packs/Day Years Used Date Smoking Tobacco: Never Smokeless Tobacco: Never Alcohol Use Standard Drinks/Week Comments No 0 (1 standard drink = 0.6 oz pur e alcohol) Sex Assigned at Date Recorded Not on file COVID-19 Exposure Response Date Recorded In the last month, have you been in contact with someone who was confirmed or suspected to have Coronavirus / COVID-19? No / Unsure 11/30/2020 8:38 AM EDT documented as of this encounter Plan of Treatment Not on file documented as of this encounter Visit Diagnoses Not on filedocumented in this encounter Care Teams Retort Fireman Relationship Specialty Start Date End Date Ernie Hauser DO PCP - General Internal Medicine 08/30/20 Ariela Amaya MD [address] [place] [id number] PCP - General Internal Medicine 01/30/21 documented as of this encounter
--- OUTSIDE RECORDS SUMMARY | 2025-03-05 07:16 | XMS_ITS | Encounter Summary ---
Author Organization [facility] Address [address] [place] [address] Care Team Providers Care Sales Project Coordinator Name Role Phone Fina Fischer MD Primary Care Provider Ernie Salomon DO Primary Care Provider Celia Ariela Borja MD Primary Care Provider [phone] Reason for Visit * Reason Comments E-prescribe Rx Request Encounter Details Date Type Department Care Team Description 06/18/2018 Refill Adult Medicine [address] [address] Fina Fischer MD E-prescribe Rx Request Social History Tobacco Use Types Packs/Day Years Used Date Smoking Tobacco: Never Smokeless Tobacco: Never Alcohol Use Standard Drinks/Week Comments No 0 (1 standard drink = 0.6 oz pur e alcohol) Sex Assigned at Date Recorded Not on file documented as of this encounter Miscellaneous Notes * Telephone Encounter - Hallie Morrow M.A. - 06/18/2018 11:28 AM EDT Lab Results Component Value Date NA 142 12/24/2017 K 4.3 12/24/2017 CO2 25.6 12/24/2017 CL 104 12/24/2017 BUN 23 12/24/2017 CREAT 1.0 12/24/2017 GLU 139 12/24/2017 CA 9.6 12/24/2017 GFR > 60 12/24/2017 Last ov with pcp 06/02/18 * Telephone Encounter - Nalini Love - 06/18/2018 11:27 AM EDT Patient would like script to be: E-PRESCRIBED/FAXED TO PHARMACY WHEN WAS THE PATIENT'S LAST APPOINTMENT IN ADULT MEDICINE? 06/02/18 WHEN WAS THE LAST TIME THE PATIENT SAW THEIR PCP? Same as above Does patient have an upcoming appointment? Yes 09/03/18 (THE MEDICATION REQUESTED IS ON THE MED LIST ABOVE) All of the medications requested were on the CURRENT MEDS list Did you check the Pharmacy information above?: YES Patient wants: 30 -day supply Is this a mail order prescription request ? NO If the refill is from a FAXED refill request what is the RX # listed on the fax? N/A Patients current insurance carrier is: [place]: [place] / Plan: [facility] MDCR-ADV PPO $20/$40 [place] / Product Type: MEDICARE [id number] documented in this encounter Plan of Treatment Not on file documented as of this encounter Visit Diagnoses Not on filedocumented in this encounter Care Teams Sales Project Coordinator Relationship Specialty Start Date End Date Fina Fischer MD PCP - General Internal Medicine 12/30/17 08/29/20 Ernie Hauser DO PCP - General Internal Medicine 08/30/20 Ariela Amaya MD [address] [place] [id number] PCP - General Internal Medicine 01/30/21 documented as of this encounter
== END 2025-03-05 07:14 | disposition home or self-care (01) ==
LOC: HO.CT 07:13
PROVIDERS: PCP Nurse Practitioner Family; Visit Provider Urology
DX: N20.0 Calculus of kidney (principal)
CPT/HCPCS: 74176

== ENCOUNTER → 2025-03-05 07:15 | Outpatient (BNV) | payer MEDICARE, SELFPAY | PROVIDERS: PCP Nurse Practitioner Family; Visit Provider Radiology Diagnostic Radiology | DX: N20.0 Calculus of kidney (principal); K57.30 Diverticulosis of large intestine without perforation or abscess without bleeding; K44.9 Diaphragmatic hernia without obstruction or gangrene | CPT/HCPCS: 74176 ==